=== PATIENT | female | born 1955 | race Caucasian/White ===

== ENCOUNTER 2020-04-01 17:31 | Observation (INO) ==
[2020-04-01] MEDS ORDERED: MoRPHine SULFATE 10 MG/ML CARP/VIAL IM STA (18:21)
--- NOTE | 2020-04-01 18:48 | XRay Report ---
XR knee LT 1 or 2V routine HISTORY: 65 years-old Female pain fall acute left knee pain status post fall COMPARISON: Knee radiographs 02/21/2020 TECHNIQUE: 2 views of the left knee FINDINGS: There is a moderate sized joint effusion. Moderate circumferential soft tissue swelling. Mild tricomp artmental osteoarthritis. There is an acute fracture involving the medial tibial plateau with cortica l depression of approximately 2-3 mm. No intra-articular loose body. The distal femur appears intact. IMPRESSION: 1. Acute slightly depressed medial tibial plateau fracture. 2. Moderate joint effusion. ACT 112: Negative or not required by law. The above report was generated using voice recognition software. It may contain grammatical, syntax o r spelling errors. Electronically signed by: Giuseppe Campbell M.D. 04/01/2020 6:47 PM
--- NOTE | 2020-04-01 19:52 | CT Scan Report ---
CT knee LT wo con HISTORY: 65 years-old Female evaluate tibial plateau fx acute left knee pain with tibial plateau fra cture COMPARISON: Left knee radiographs of same day TECHNIQUE: Multiple axial CT images of the left knee were obtained without the use of IV contrast. A dose lowering technique was used consistent with the principals of ALARA. FINDINGS: Large lipohemarthrosis. There is mild circumferential subcutaneous edema of the knee. No large hemato ma. There is mild tricompartmental osteoarthritis. There is an acute comminuted lateral tibial platea u with articular depression of approximately 5 mm within the mid tibial plateau and measuring up to a pproximately 8 mm within the posterior aspect of the lateral tibial plateau. Fracture fragments are d isplaced posteriorly up to 5 mm. Lateral tibial plateau fracture extends into inferiorly into the pro ximal tibial metaphysis (image 217 series 3 which is approximately 3.5 cm from the articular cortex. Additionally, there are fractures involving the medial and lateral tibial spines with a subtle transv ersely oriented fracture line extending from the mid to posterior medial tibial plateau. There is no associated cortical depression or displacement of the medial tibial plateau fracture. There is no def inite intra-articular loose body identified. The imaged fibula, distal femur and patella appear intac t. IMPRESSION: 1. Acute, comminuted and slightly displaced lateral tibial plateau fracture with associated articular depression as above. Fracture extends inferiorly to the level of the proximal tibial metaphysis. 2. Acute fractures of the medial and lateral tibial spines. 3. Acute nondisplaced medial tibial plateau fracture. 4. Large lipohemarthrosis. ACT 112: Negative or not required by law. The above report was generated using voice recognition software. It may contain grammatical, syntax o r spelling errors. Electronically signed by: Giuseppe Campbell M.D. 04/01/2020 7:50 PM
[2020-04-01] MEDS ORDERED: METHOCARBAMOL 750 MG TABLET PO STA (20:31)
[2020-04-01] MEDS: OXYCODONE IR HOME PACK PO ONE ×2 (20:53→23:45)
[2020-04-01] MEDS ORDERED: ONDANSETRON 4 MG OD TAB PO STA (21:03)
[2020-04-01] MEDS ORDERED: HYDROmorphone INJ 0.5 MG/0.5 ML SYR IV STA (23:29)
--- NOTE | 2020-04-01 23:32 | Emergency Department Note ---
Impression & Plan Closed fracture of tibial plateau, Accidental fall on or from stairs or steps ED Provider Note NAME: KAYLEE JOHNSON AGE: 65 SEX: F ARRIVES VIA: Walk-In INFORMANT: Patient, ED PROVIDER(S): Junior Quiroga MD CHIEF COMPLAINT: Left knee pain PLAN: Disposition: Admit MEDICAL DECISION MAKING: The patient is a pleasant 65-year-old woman with a past medical history of morbid obesity, type 2 diabetes, hypertension, hyperlipidemia, hypothyroidism, GERD, history of left knee pain and insufficiency fracture of her left knee mid medial tibial plateau managed conservatively with meat apprentice brace who presents emergency department after having a fall where she reports twisting her left knee and falling when attempting to go down steps. She denies any head strike or loss of consciousness. She reports she was unable to stand or bear weight thereafter. Denies any neck or back pain. Denies any recent fevers, chills, cough, congestion, nausea, vomiting, diarrhea, urinary symptoms. On arrival the patient is uncomfortable but no acute distress, afebrile with stable vital signs. She has mild swelling and tenderness diffusely to the left knee. She is unable to range it passively or actively. Her hips and pelvis are stable. Plain film performed and demonstrates tibial plateau fracture. This was additionally characterized on CT. I Did review the patient's case and findings with Dr. Garcia, [facility] orthopedics on-call. And we agree with plan for immobilization and nonweightbearing with plan for outpatient follow-up with the patient's orthopedist, Dr. Hernandez tomorrow. Unfortunately, despite our best attempt to optimize the patient's ability to go home including knee immobilizer with walker and plan to obtain wheelchair at [facility] on the way home the patient was barely able to pivot and make it to the bathroom in her room with a 3 person assist. Therefore given the patient's difficulty to manage ADLs in her current state decision was made to proceed with admission for PT OT evaluation and likely orthopedic consultation. Case was discussed with Dr. Charles, [facility] hospitalist, who will evaluate the patient for admission. Triage Nursing notes reviewed and agree them. Prior medical records reviewed MRI 01/08/2020: 1. No evidence of cruciate or collateral ligament disruption 2. Degenerative signal changes within the medial meniscus without evidence of discrete tear 3. Marrow edema within the medial tibial plateau, in a distribution suggesting an insufficiency fracture 4. Medial joint compartment chondrosis Vital Signs: reviewed and remarkable for no significant abnormalities Differential diagnosis: Fracture, subluxation, dislocation, contusion, ligamentous injury, neurovascular, compartment syndrome, rhabdomyolysis, as well as other pathologies. ER treatment provided: See below. Imaging studies: XR knee LT 1 or 2V routine HISTORY: 65 years-old Female pain fall acute left knee pain status post fall COMPARISON: Knee radiographs 02/21/2020 TECHNIQUE: 2 views of the left knee FINDINGS: There is a moderate sized joint effusion. Moderate circumferential soft tissue swelling. Mild tricompartmental osteoarthritis. There is an acute fracture involving the medial tibial plateau with cortical depression of approximately 2- 3 mm. No intra-articular loose body. The distal femur appears intact. IMPRESSION: 1. Acute slightly depressed medial tibial plateau fracture. 2. Moderate joint effusion. -- CT knee LT wo con HISTORY: 65 years-old Female evaluate tibial plateau fx acute left knee pain with tibial plateau fracture COMPARISON: Left knee radiographs of same day TECHNIQUE: Multiple axial CT images of the left knee were obtained without the use of IV contrast. A dose lowering technique was used consistent with the principals of ALARA. FINDINGS: Large lipohemarthrosis. There is mild circumferential subcutaneous edema of the knee. No large hematoma. There is mild tricompartmental osteoarthritis. There is an acute comminuted lateral tibial plateau with articular depression of approximately 5 mm within the mid tibial plateau and measuring up to approximately 8 mm within the posterior aspect of the lateral tibial plateau. Fracture fragments are displaced posteriorly up to 5 mm. Lateral tibial plateau fracture extends into inferiorly into the proximal tibial metaphysis (image 217 series 3 which is approximately 3.5 cm from the articular cortex. Additionally, there are fractures involving the medial and lateral tibial spines with a subtle transversely oriented fracture line extending from the mid to posterior medial tibial plateau. There is no associated cortical depression or displacement of the medial tibial plateau fracture. There is no definite intra- articular loose body identified. The imaged fibula, distal femur and patella appear intact. IMPRESSION: 1. Acute, comminuted and slightly displaced lateral tibial plateau fracture with associated articular depression as above. Fracture extends inferiorly to the level of the proximal tibial metaphysis. 2. Acute fractures of the medial and lateral tibial spines. 3. Acute nondisplaced medial tibial plateau fracture. 4. Large lipohemarthrosis. Consultation(s): [facility], Dr. Garcia [facility] hospitalist, Dr. Charles. HPI: The patient is a pleasant 65-year-old woman with a past medical history of morbid obesity, type 2 diabetes, hypertension, hyperlipidemia, hypothyroidism, GERD, history of left knee pain and insufficiency fracture of her left knee mid medial tibial plateau managed conservatively with meat apprentice brace who presents emergency department after having a fall where she reports twisting her left knee and falling when attempting to go down steps. She denies any head strike or loss of consciousness. She reports she was unable to stand or bear weight thereafter. Denies any neck or back pain. Denies any recent fevers, chills, cough, congestion, nausea, vomiting, diarrhea, urinary symptoms. ROS: See above HPI for pertinent positives & negatives. A total of 10 systems reviewed and were otherwise negative. PAST MEDICAL HISTORY:See Below PAST SURGICAL HISTORY:See Below FAMILY HISTORY:See Below SOCIAL HISTORY:See Below HOME MEDICATIONS:See Below ALLERGIES:See Below VITALS:See Below PHYSICAL EXAMINATION: GENERAL: Awake, alert, uncomfortable-appearing, in no distress, HENT: Normocephalic, atraumatic. Oropharynx unremarkable. EYES: Normal conjunctiva. Sclera non-icteric. NECK: Supple. No nuchal rigidity. FROM. No JVD. RESPIRATORY: Clear to auscultation. CARDIAC: Regular rate, normal rhythm. Extremities warm and well perfused. Pulses equal. ABDOMEN: Soft, non-distended. No tenderness to palpation. No rebound or guarding. No masses. RECTAL: Deferred. MUSCULOSKELETAL: Chest examination reveals no tenderness. The back is symmetrical on inspection without obvious abnormality. There is no CVA tenderness to palpation. LOWER EXTREMITIES: Calves are equal size bilaterally and non-tender. Mild swelling and tenderness diffusely to the left knee. She is unable to range it passively or actively 2/2 pain. Hips and pelvis are stable. NEURO: Normal sensorium. No sensory or motor deficits noted. SKIN: No rash or jaundice noted. Junior Quiroga MD Past Med/Surg History Medical History Diabetes mellitus, type 2 GERD (gastroesophageal reflux disease) Hearing deficit Hyperlipidemia Hypertension Hypothyroidism Seasonal allergies uses ventolin Surgical History History of cholecystectomy History of colonoscopy History of esophagogastroduodenoscopy (EGD) History of hysterectomy KWASI BSO History of laparoscopy X MANY History of lumpectomy Social History Smoking Status: Former smoker Second Hand Exposure: No; Do You Dip or Chew Tobacco: No; Tobacco Cessation Education Requested by Patient: No Hx Alcohol Use: Yes Alcohol type: beer Hx Substance Use: No Preferred Language: Mongolian Communication Ability: Effective Sr. Social Media & Mobile Manager Required: No Beliefs That Will Affect Care: None Current Living Situation: Spouse Current Living Situation Comment: and son Other Information That Helps Us Care for You: No Feels Safe at Home: Yes Allergies Allergies Allergy/AdvReac Type Severity Reaction Status Date / Time No Known Allergies Allergy Verified 04/01/20 21:53 Home Meds Home Medications Medication Instructions Recorded Confirmed Caltrate 600 plus D 2 tab PO BID 01/03/19 04/01/20 Cholestyramine Light 4 g PO BID 01/03/19 04/01/20 Touramos SoloStar U-300 Insulin 60 unit SUBCUT QPM 01/03/19 04/01/20 albuterol sulfate [Ventolin HFA] 2 puff INHALATION QID PRN 01/03/19 04/01/20 atorvastatin 40 mg PO QAM 01/03/19 04/01/20 esomeprazole magnesium [Nexium] 40 mg PO QAM 01/03/19 04/01/20 ferrous sulfate [iron] 325 mg PO QAM 01/03/19 04/01/20 furosemide 40 mg PO QAM 01/03/19 04/01/20 insulin lispro [Humalog KwikPen 6 - 8 unit SUBCUT TIDM 01/03/19 04/01/20 Insulin] levothyroxine 175 mcg PO QAM 01/03/19 04/01/20 lisinopril 40 mg PO QAM 01/03/19 04/01/20 metformin 1,000 mg PO BID 01/03/19 04/01/20 metoprolol tartrate 37.5 mg PO BID 01/03/19 04/01/20 triamcinolone acetonide [Nasacort] 1 spray INTRANASAL DAILY PRN 01/03/19 04/01/20 mirabegron [Myrbetriq] 50 mg PO QAM 04/01/20 04/01/20 Previous Rx's Medication Instructions Recorded methocarbamol [Robaxin-750] 750 mg PO TID PRN #20 tab 04/01/20 oxycodone 5 mg PO Q4H #15 tab 04/01/20 Results & Data (ED) Vital Signs Vital Signs - 24 hr 04/01/20 17:44 04/01/20 19:45 04/01/20 20:53 Temperature 36.8 C Temperature Source Oral Pulse Rate 99 H Pulse Rate [Finger] 83 60 Respiratory Rate 20 18 20 Respiratory Effort / Characteristics Non-Labored Non-Labored Spontaneous Non-Labored Spontaneous Respiratory Depth Normal Normal Normal Blood Pressure 209/93 H Blood Pressure [Right Arm] 228/74 H 177/98 H Blood Pressure Mean 131 Blood Pressure Mean [Right Arm] 125 124 Pulse Oximetry 99 97 97 Oxygen Delivery Method Room Air Room Air Room Air Sepsis Recent Fever Within 48 Hours No Sepsis New/Unexplained Change in Mental Status N/A Sepsis Action Taken by Nursing No Action Required Laboratory Data Lab Results 04/01/20 Range/Units 20:04 POC Glucose 142 H (70-99) mg/dl Administered Medications Sodium Chloride (Nss 1000ml) 1,000 mls @ 100 mls/hr IV .Q10H KEM Stop: 05/02/20 00:50 Last Admin: 04/02/20 02:04 Dose: 100 mls/hr Documented by: [id number] Oxycodone HCl (Oxycodone Hcl Ir 5 Mg Tab (Immediate Release)) 5 mg PO Q4H PRN PRN Reason: Pain Stop: 04/16/20 00:50 Last Admin: 04/02/20 02:05 Dose: 5 mg Documented by: [id number] Discontinued Medications Hydromorphone HCl (Hydromorphone Inj 0.5 Mg/0.5 Ml Syr) 0.5 mg IV NOW STA Stop: 04/01/20 23:30 Last Admin: 04/01/20 23:43 Dose: Not Given Documented by: [id number] Hydromorphone HCl (Hydromorphone Inj 0.5 Mg/0.5 Ml Syr) Confirm Administered Dose 0.5 mg .ROUTE .STK-MED ONE Stop: 04/01/20 23:35 Last Admin: 04/01/20 23:36 Dose: 0.5 mg Documented by: [id number] Methocarbamol (Methocarbamol 750 Mg Tablet) 1,500 mg PO NOW STA Stop: 04/01/20 20:32 Last Admin: 04/01/20 20:53 Dose: 1,500 mg Documented by: [id number] Morphine Sulfate (Morphine Sulfate 10 Mg/Ml Carp/Vial) 6 mg IM NOW STA Stop: 04/01/20 18:22 Last Admin: 04/01/20 18:27 Dose: 6 mg Documented by: [id number] Ondansetron HCl (Ondansetron 4 Mg Od Tab) 4 mg PO NOW STA Stop: 04/01/20 21:04 Last Admin: 04/01/20 21:09 Dose: 4 mg Documented by: [id number] Oxycodone HCl (Oxycodone Ir Home Pack) 1 homepack PO UD ONE Stop: 04/01/20 20:32 Last Admin: 04/01/20 23:45 Dose: Not Given Documented by: [id number] Discharge Plan Visit Data Chief Complaint: Fall Stated Complaint: FELL DOWN STEPS ED Provider: Junior Quiroga Discharge Problem: Closed fracture of tibial plateau, Accidental fall on or from stairs or steps Patient Disposition: Home - Self-Care Condition: Good Discharge Instructions Interventions: ED Discharge Assessment Last Done: 04/02/20 00:25 Discharge Problem: Closed fracture of tibial plateau Qualifiers: Encounter type: initial encounter Laterality: left Qualified Code(s): S82.142A - Displaced bicondylar fracture of left tibia, initial encounter for closed fracture Accidental fall on or from stairs or steps Qualifiers: Encounter type: initial encounter Qualified Code(s): W10.8XXA - Fall (on) (from) other stairs and steps, initial encounter
[2020-04-01] MEDS ORDERED: HYDROmorphone INJ 0.5 MG/0.5 ML SYR ONE (23:34)
[2020-04-02] MEDS ORDERED: ALBUTEROL HFA 8 GM INHALER INH PRN (00:51)
[2020-04-02] MEDS ORDERED: TRIAMCINOLONE ACET NASAL SPRAY 10.8ML BTL PRN (00:51)
[2020-04-02] MEDS ORDERED: HydrALAZINE HCL 20 MG/ML VIAL IV PRN (00:51)
[2020-04-02] MEDS ORDERED: POLYETHYLENE (MIRALAX) 17 GM PACK PO PRN (00:51)
--- NOTE | 2020-04-02 01:07 | History and Physical Report ---
DATE OF ADMISSION: 04/01/2020 CHIEF COMPLAINT: Status post fall and left knee pain. HISTORY OF PRESENT ILLNESS: A 65-year-old female with past medical history significant for diabetes, hyperlipidemia, hypertension, aortic valve disorder, obesity, history of GI bleed, history of tobacco abuse, generalized weakness, vertigo, ambulatory dysfunction, who presents with a fall. The patient says she twisted her knee in September and was found to have left medial tibial plateau fracture treated conservatively with a brace. Since February, she is not on any brace, follows with orthopedics. Today she went to get some apples from a local apple orchard and when she was coming down the steps, she suddenly felt the left knee popped and she fell down and felt a loss of sense of weight on the left leg and severe pain radiating up to the hip. She came to the ER and imaging study is showing acute comminuted and slightly displaced lateral tibial fracture with associated articular depression. Fracture extends interior to the level of the proximal tibial metaphysis, acute fracture of the medial and lateral tibial spines, acute nondisplaced medial tibial lateral fracture. ER discussed with ortho. Plan to keep her in the hospital. To be seen by ortho in the a.m. The patient was not able to ambulate on her own in the ER, she required a lot of help. Currently, any movement is causing severe pain. Otherwise resting comfortably and hemodynamically stable. Denies any headache, no blurred vision, no earache, no runny nose, no sore throat, no cough, no dysphagia. Appetite is okay. No chest pain, no shortness of breath. Was nauseous earlier, that has improved. No abdominal pain. Normal bowel and bladder movements. No rash. ALLERGIES: No known drug allergies. PAST MEDICAL HISTORY: As mentioned above. PAST SURGICAL HISTORY: Excision of a right benign breast lesion, EGDs, laparoscopic cholecystectomy, left heart catheterization, total hysterectomy with bilateral oophorectomy. MEDICATIONS: The patient is on cholestyramine 4 grams p.o. b.i.d., insulin Glargine 60 units q.p.m., Humalog sliding scale, levothyroxine 175 mcg p.o. daily, Metamucil daily, meclizine 25 mg p.o. t.i.d. p.r.n., Zofran 4 mg p.o. every 8 hours p.r.n., Nasacort spray nasally p.r.n., Lopressor 37.5 mg p.o. b.i.d., Lasix, Ventolin 2 puffs every 4 hours p.r.n., atorvastatin 40 mg p.o. daily, Caltrate 600 plus D 1 tablet b.i.d., lisinopril 40 mg p.o. daily, metformin 1000 mg p.o. b.i.d., Lasix 40 mg p.o. daily, Nexium 40 mg p.o. daily. FAMILY HISTORY: Significant for mother has diabetes and heart disorder, father has heart disorder, brother has heart disorder and diabetes. SOCIAL HISTORY: . Former smoker, quit in 2010. Alcohol occasionally. No drug use. REVIEW OF SYSTEMS: As per HPI. Rest of the review of systems negative. PHYSICAL EXAMINATION: GENERAL: The patient is alert and oriented, not in acute distress. VITAL SIGNS: Temperature 36.8, pulse 67, respiratory rate 20, blood pressure 206/99, oxygen 95% on room air. HEENT: Pupils equal, round, reactive to light. Oral mucosa moist. NECK: No neck masses seen, supple. CARDIOVASCULAR: S1, S2 heard, regular rate and rhythm, no murmur, no gallop. RESPIRATORY SYSTEM: Normal AP diameter. No accessory muscle use. No wheezing, no crackles. ABDOMEN: Soft, bowel sounds present, nontender. No distention. CENTRAL NERVOUS SYSTEM: Cranial nerves II-XII grossly intact, nonfocal. EXTREMITIES: Left knee is in brace. Painful movement of left lower extremity. Pedal edema present. LABORATORY DATA: Unavailable at this time. IMAGING DATA: Knee x-ray, acute slightly depressed medial tibial fracture, moderate joint effusion. Left knee CT scan, acute comminuted and slightly displaced lateral tibial fracture with associated articular depression. Fracture extends inferiorly to the level of proximal tibial metaphysis. Acute fracture of the medial and lateral tibial spines. Acute nondisplaced medial tibial plateau fracture, large lipohemarthrosis. ASSESSMENT AND PLAN: This is a 65-year-old female who presents with a fall and presents with a left knee tibial fracture. 1. Left knee tibial fracture. The patient had a left medial tibial plateau fracture in September, was treated conservatively and she was able to take off brace in February and able to ambulate, but today again she fell and, again had acute fractures as mentioned above. Difficulty with ambulation. Pain control. We will keep n.p.o. after midnight and consult ortho in the a.m. for further recommendations. When stable, PT and OT. 2. History of diabetes. Continue her home Ernesto Jerome and placed on insulin sliding scale. Hold metformin. However, if the patient continues to be n.p.o. tomorrow, may need to cut back on the long-acting insulin. We will follow the HbA1c, we will follow the blood sugars. 3. Gastroesophageal reflux disease. Continue Nexium. 4. Hyperlipidemia. Continue statin. 5. Hypertension. Continue lisinopril, Lopressor. We will place on IV hydralazine p.r.n. 6. Obesity, needs counseling. 7. Lower extremity edema on Lasix, which she will continue. Getting fluids. We will monitor for any volume overload. 8. Deep venous thrombosis prophylaxis. She is on sequential compression devices. If there is no plan for any surgery, may need to be placed on Lovenox. DISPOSITION: Admit to medical floor. PT and OT prior to discharge. Social service to help with discharge planning. Code status level 1 full code. MTDD
[2020-04-02] MEDS ORDERED: GLUCAGON FOR INJ 1 MG VIAL SQ PRN (01:15)
[2020-04-02] MEDS ORDERED: GLUCOSE 40% GEL 15 GM TUBE PO PRN (01:15)
[2020-04-02] MEDS ORDERED: GLUCOSE 10 TABS/TUBE PO PRN (01:15)
[2020-04-02] MEDS ORDERED: DEXTROSE 50% 50 ML SYRINGE IV PRN (01:15)
[2020-04-02] MEDS ORDERED: CARBOHYDRATES FOR HYPOGLYCEMIA PO PRN (01:15)
[2020-04-02] MEDS: SODIUM CHLORIDE 0.9% 1000ML 1,000 ML IV SCH ×3 (02:04→21:24)
[2020-04-02] MEDS: OXYCODONE HCL IR 5 MG TAB (IMMEDIATE RELEASE) PO PRN ×4 (02:05→20:47)
[2020-04-02] MEDS ORDERED: Nursing to Pharmacy Communication SCH (05:45)
[2020-04-02 06:09] LABS: Basophils # (auto) 0.02 K/uL (0-0.2); Basophils % (auto) 0.3 %; Eosinophils # (auto) 0.02 K/uL (0-0.5); Eosinophils % (auto) 0.3 %; Hematocrit (blood only) 39.5 % (37-47); Hemoglobin 13.2 g/dL (12.0-16.0); Immature Granulocytes # (auto) 0.01 K/uL (0.00-0.02); Immature Granulocytes % (auto) 0.1 %; Lymphocytes # (auto) 1.32 K/uL (1.2-3.4); Lymphocytes % (auto) 16.5 %; Mean Corpuscular Hemoglobin 29.4 pg (25-34); Mean Corpuscular Hgb Conc 33.4 g/dL (32-36); Mean Platelet Volume 9.1 fL (7.4-10.4); Monocytes % (auto) 8.8 %; Neutrophils # (auto) 5.93 K/uL (1.4-6.5); Platelet Count 290 K/uL (130-400); RDW Coefficient of Variation 13.3 % (11.5-14.5); Red Blood Count 4.49 M/uL (4.2-5.4)
[2020-04-02] MEDS: INSULIN ASPART 100 UNITS/ML 3 ML PEN SC SCH ×4 (06:16→20:55)
[2020-04-02] MEDS: LEVOTHYROXINE SODIUM 175 MCG TABLET PO SCH (06:22)
[2020-04-02 06:38] LABS: BUN Creatinine Ratio 13.1 (10-20); Calcium 9.1 mg/dl (8.5-10.1); Creatinine Clr Calc Pharmacy 95.2 ml/min; Est GFR (African American) 96.1; Est GFR (Non-African American) 82.9; Magnesium 1.9 mg/dl (1.8-2.4); Potassium 3.6 mmol/L (3.5-5.1)
[2020-04-02] MEDS: HYDROmorphone INJ 0.5 MG/0.5 ML SYR IV PRN ×2 (07:18→10:26)
[2020-04-02] MEDS ORDERED: INSULIN ASPART 100 UNITS/ML 3 ML PEN SC SCH (07:30)
[2020-04-02 07:48] LABS: Estimated Average Glucose 197 mg/dl; Hemoglobin A1C 8.5 % (4.5-5.6)
[2020-04-02] MEDS: lisinopriL 40 MG TAB PO SCH (08:04)
[2020-04-02] MEDS: FERROUS SULFATE 325 MG TAB PO SCH (08:04)
[2020-04-02] MEDS: CALCIUM 600MG + VIT D 400 IU TAB PO SCH ×2 (08:04→20:40)
[2020-04-02] MEDS: FUROSEMIDE 40 MG TAB PO SCH (08:05)
[2020-04-02] MEDS: MIRABEGRON ER 25 MG TAB PO SCH (08:05)
[2020-04-02] MEDS: METOPROLOL TARTRATE 25 MG TAB PO SCH ×2 (08:05→20:41)
[2020-04-02] MEDS: PANTOprazole 40 MG TAB PO SCH (08:06)
[2020-04-02] MEDS: ATORVASTATIN 40 MG TAB PO SCH (08:06)
[2020-04-02] MEDS: ACETAMINOPHEN 325 MG TAB PO PRN (09:18)
[2020-04-02] MEDS: ONDANSETRON INJ 2 MG/ML 2 ML VIAL IV PRN ×2 (10:33→16:35)
[2020-04-02] MEDS: CHOLESTYRAMINE LIGHT 4 GM PKT PO SCH ×2 (10:34→21:00)
[2020-04-02] MEDS ORDERED: HYDROmorphone INJ 1 MG/ML SYRINGE IV PRN (12:23)
--- NOTE | 2020-04-02 15:34 | Orthopedic Consultation ---
Date of Consultation April 02, 2020 Assessment & Plan (1) Closed fracture of tibial plateau: 65-year-old female with unacceptably displaced split depression lateral tibial plateau fracture. The x-ray is reviewed by myself and Dr. Garcia. Both of us agree this should be treated without surgery if possible. The treatment plan will be nonweightbearing to the left lower extremity for at least 6 weeks. She should be in a straight leg extension brace. The knee immobilizer that she had on was too small. A range of motion brace was applied today. She should be evaluated by PT/OT for her discharge needs. We discussed the need to be nonweightbearing. I also related that any surgical fixation would not allow much earlier weightbearing. We are unlikely to improve the alignment of the fracture by surgery at this point. We should follow this on x-ray. She should follow-up in our orthopedic clinic for interval x-rays at 2 weeks. Until then the knee should be held in extension and be nonweightbearing. She will need DVT prophylaxis for her immobility and injury. Unless there is another contraindication, Lovenox 40 mg subcutaneous every day for 6 weeks would be acceptable. We will continue to follow while she is inpatient. History of Present Illness Attending Physician: Cecilia Conteh MD History of Present Illness 65-year-old female with multiple manage medical comorbidities reports that she sustained a fall on steps when her knee gave way yesterday and [place]. She had immediate pain and inability to bear weight. Pain radiated towards the hip. She was evaluated by the emergency room and found to have a minimally displaced proximal tibia plateau fracture. She was admitted to the hospital for further care. She reports pain has not improved much since admission. She was placed in a knee immobilizer. She has been n.p.o. today. She reports she was doing well since being advanced without the brace and obvious. Allergies Allergy/AdvReac Type Severity Reaction Status Date / Time No Known Allergies Allergy Verified 04/01/20 21:53 Home Medications Home Medications Medication Instructions Recorded Confirmed Type Caltrate 600 plus D 2 tab PO BID 01/03/19 04/01/20 History Cholestyramine Light 4 g PO BID 01/03/19 04/01/20 History Toujeo SoloStar U-300 Insulin 60 unit SUBCUT QPM 01/03/19 04/01/20 History albuterol sulfate [Ventolin HFA] 2 puff INHALATION QID PRN 01/03/19 04/01/20 History atorvastatin 40 mg PO QAM 01/03/19 04/01/20 History esomeprazole magnesium [Nexium] 40 mg PO QAM 01/03/19 04/01/20 History ferrous sulfate [iron] 325 mg PO QAM 01/03/19 04/01/20 History furosemide 40 mg PO QAM 01/03/19 04/01/20 History insulin lispro [Humalog KwikPen 6 - 8 unit SUBCUT TIDM 01/03/19 04/01/20 History Insulin] levothyroxine 175 mcg PO QAM 01/03/19 04/01/20 History lisinopril 40 mg PO QAM 01/03/19 04/01/20 History metformin 1,000 mg PO BID 01/03/19 04/01/20 History metoprolol tartrate 37.5 mg PO BID 01/03/19 04/01/20 History triamcinolone acetonide [Nasacort] 1 spray INTRANASAL DAILY PRN 01/03/19 04/01/20 History methocarbamol [Robaxin-750] 750 mg PO TID PRN #20 tab 04/01/20 Rx mirabegron [Myrbetriq] 50 mg PO QAM 04/01/20 04/01/20 History oxycodone 5 mg PO Q4H #15 tab 04/01/20 Rx Patient History Medical History Diabetes mellitus, type 2 GERD (gastroesophageal reflux disease) Hearing deficit Hyperlipidemia Hypertension Hypothyroidism Seasonal allergies uses ventolin Surgical History History of cholecystectomy History of colonoscopy History of esophagogastroduodenoscopy (EGD) History of hysterectomy KWASI BSO History of laparoscopy X MANY History of lumpectomy Social History Smoking Status: Former smoker Second Hand Exposure: No; Do You Dip or Chew Tobacco: No; Tobacco Cessation Education Requested by Patient: No Hx Alcohol Use: Yes Alcohol type: beer Hx Substance Use: No Preferred Language: Ghanaian Communication Ability: Effective Block Inspector Required: No Beliefs That Will Affect Care: None Current Living Situation: Spouse Current Living Situation Comment: and son Other Information That Helps Us Care for You: No Feels Safe at Home: Yes Review of Systems Review of Systems: All systems reviewed & are unremarkable except as noted in HPI & below Physical Exam Physical Exam: Left lower extremity: The knee immobilizer was opened to reveal significant edema about the knee. She is a large effusion. There is some ecchymosis settling out. She had positive dorsiflexion and plantarflexion at the ankle. Sensation was grossly intact light touch. She had strong 2+ DP/PT pulses. Constitutional: well developed and well nourished; no acute distress and not intoxicated appearing ENMT: external ear and nose normal, oropharynx normal Respiratory: normal respiratory effort; no respiratory distress Cardiovascular: Extremities: normal capillary refill; no edema Skin: no rashes, warm and dry Psychiatric: A+Ox3, euthymic affect Results & Data ([facility]) Vital Signs (Past 12 Hours) Vital Signs Temp Pulse Resp BP Pulse Ox 04/02/20 14:51 36.4 C L 59 L 18 111/68 91 04/02/20 07:09 36.9 C 68 16 165/82 H 96 Radiographs of the knee demonstrate a fracture involving the lateral tibial plateau with noticeable articular depression of less than 5 mm. The fracture pattern is better described on the available CT. There is fracture extension into the metaphysis. There is involvement of the tibial spines and some articular depression lateral tibial plateau. Overall, the alignment is acceptable. She has relative osteoporosis in all the imaging. PG Care Time/CCT Total # of Minutes Spent Total Time Spent with Patient: Total time spent is greater than 50% in coordination of care (as documented) at patient's floor/unit and/or counseling patient: Coding Level of Care Code 08232 Inpt Consult Level 3 Diagnoses Closed fracture of tibial plateau S82.142A Encounter type: initial encounter Laterality: left (1) Closed fracture of tibial plateau Encounter type: initial encounter Laterality: left Qualified Code(s): S82.142A - Displaced bicondylar fracture of left tibia, initial encounter for closed fracture
--- NOTE | 2020-04-02 15:44 | Communication Note ---
Date of Service: April 02, 2020 The patient was seen and examined in medical floor She was admitted with closed fracture of the left Tibial plateau following a mechanical fall Remains hemodynamically stable and her labs and imaging studies reviewed Awaiting Ortho evaluation Will continue care. Dr Jj Conteh
[2020-04-02] MEDS ORDERED: PROMETHAZINE HCL 12.5 MG in SODIUM CHLORIDE 0.9% 50 ML IV PRN (15:54)
[2020-04-02] MEDS ORDERED: INSULIN GLARGINE 100 UNIT/ML VIAL SC SCH (21:00)
[2020-04-03] MEDS: OXYCODONE HCL IR 5 MG TAB (IMMEDIATE RELEASE) PO PRN ×4 (01:30→23:49)
[2020-04-03 05:48] LABS: Basophils # (auto) 0.01 K/uL (0-0.2); Basophils % (auto) 0.1 %; Eosinophils # (auto) 0.14 K/uL (0-0.5); Hematocrit (blood only) 39.3 % (37-47); Hemoglobin 13.1 g/dL (12.0-16.0); Immature Granulocytes # (auto) 0.01 K/uL (0.00-0.02); Immature Granulocytes % (auto) 0.1 %; Lymphocytes # (auto) 1.32 K/uL (1.2-3.4); Mean Corpuscular Hemoglobin 29.3 pg (25-34); Mean Corpuscular Hgb Conc 33.3 g/dL (32-36); Mean Corpuscular Volume 87.9 fL (80-100); Mean Platelet Volume 9.2 fL (7.4-10.4); Monocytes # (auto) 0.61 K/uL (0.11-0.59); Monocytes % (auto) 8.8 %; Neutrophils # (auto) 4.85 K/uL (1.4-6.5); Platelet Count 272 K/uL (130-400); RDW Coefficient of Variation 13.4 % (11.5-14.5); Red Blood Count 4.47 M/uL (4.2-5.4); White Blood Count 6.94 K/uL (4.8-10.8)
[2020-04-03] MEDS: LEVOTHYROXINE SODIUM 175 MCG TABLET PO SCH (05:50)
[2020-04-03 06:10] LABS: Calcium 8.8 mg/dl (8.5-10.1); Creatinine Clr Calc Pharmacy 101.9 ml/min; Est GFR (African American) 104.3; Potassium 3.2 mmol/L (3.5-5.1)
[2020-04-03] MEDS: SODIUM CHLORIDE 0.9% 1000ML 1,000 ML IV SCH ×2 (06:13→18:39)
[2020-04-03] MEDS: PANTOprazole 40 MG TAB PO SCH (08:22)
[2020-04-03] MEDS: FERROUS SULFATE 325 MG TAB PO SCH (08:23)
[2020-04-03] MEDS: MIRABEGRON ER 25 MG TAB PO SCH (08:23)
[2020-04-03] MEDS: FUROSEMIDE 40 MG TAB PO SCH (08:24)
[2020-04-03] MEDS: CALCIUM 600MG + VIT D 400 IU TAB PO SCH ×2 (08:24→20:59)
[2020-04-03] MEDS: METOPROLOL TARTRATE 25 MG TAB PO SCH ×2 (08:27→20:56)
[2020-04-03] MEDS: lisinopriL 40 MG TAB PO SCH (08:27)
[2020-04-03] MEDS: INSULIN ASPART 100 UNITS/ML 3 ML PEN SC SCH ×4 (08:33→21:02)
[2020-04-03] MEDS: ATORVASTATIN 40 MG TAB PO SCH (08:50)
[2020-04-03] MEDS ORDERED: POTASSIUM CHLORIDE 20 MEQ TABCR PO STA (09:04)
[2020-04-03] MEDS: CHOLESTYRAMINE LIGHT 4 GM PKT PO SCH ×2 (11:12→22:29)
--- NOTE | 2020-04-03 12:43 | Hospitalist Progress Note ---
Date of Service April 03, 2020 Assessment & Plan (1) Closed fracture of lateral portion of left tibial plateau: Status post mechanical fall while stepping down the stairs History of previous fall in September of this year with fracture of left medial tibial plateau CT scan of the left knee joint shows: 1. Acute, comminuted and slightly displaced lateral tibial plateau fracture with associated articular depression as above. Fracture extends inferiorly to the level of the proximal tibial metaphysis. 2. Acute fractures of the medial and lateral tibial spines. 3. Acute nondisplaced medial tibial plateau fracture. 4. Large lipohemarthrosis. Has acute fractures involving the tibial plateau and spine Pain control and PT and OT evaluation Appreciate Ortho input and recommendation Recurrent falls History of fall in September with left medial tibial plateau fracture treated conservatively (2) Closed fracture of tibial spine: As above (3) Left medial tibial plateau fracture: As above (4) Diabetes mellitus, type 2: We will put her on SSI while in the hospital Monitor blood sugar (5) Hypertension: Medications Continue on the upper side likely secondary to pain (6) Hyperlipidemia: (7) Hypothyroidism: Continue current supplement Admission and Anticipated Discharge Date Admission Date: April 01, 2020 Subjective 04/03/2020 Patient was seen and examined in medical floor She has been complaining of pain in the left leg around the left knee joint mainly Denies any other symptoms Review of Systems Review of Systems: All systems reviewed and are unremarkable except as noted below Musculoskeletal: + joint pain (Left leg pain mainly around the left knee joint) Physical Exam Physical Exam: Lying in bed Constitutional: well developed, well nourished and + obese; no acute distress and not ill appearing Eyes: PERRL, conjunctivae normal, anicteric sclerae ENMT: external ear and nose normal, oropharynx normal Neck: trachea midline, no thyromegaly Respiratory: normal respiratory effort; no respiratory distress Auscultation: lungs clear to auscultation bilaterally Cardiovascular: Rate/Rhythm: regular rate and regular rhythm Heart Sounds: no murmur Gastrointestinal (Abdomen): Inspection/Auscultation: abdomen normal to inspection and normal bowel sounds; abdomen not distended Percussion/Palpation: abdomen soft; abdomen nontender Musculoskeletal: Left knee is in a brace. No problem moving with the ankle and the toes Neurologic: moves all extremities; no focal motor deficits Alert, awake and oriented x3 Results & Data Results & Data ([facility]) Vital Signs (Past 12 Hours) Vital Signs Temp Pulse Resp BP Pulse Ox 04/03/20 08:26 79 159/80 H 04/03/20 07:22 37.2 C 75 16 160/79 H 93 Laboratory Results Short CBC 04/03/20 Range/Units 05:04 WBC 6.94 (4.8-10.8) K/uL Hgb 13.1 (12.0-16.0) g/dL Hct 39.3 (37-47) % Plt Count 272 (130-400) K/uL BMP 04/03/20 05:04 Sodium 142 Potassium 3.2 L Chloride 109 H Carbon Dioxide 28 BUN 7 Creatinine 0.71 Glucose 104 H Calcium 8.8 Medications Administered Current Inpatient Medications Acetaminophen (Acetaminophen 325 Mg Tab) 650 mg PO Q4H PRN PRN Reason: pain/fever Stop: 05/02/20 00:50 Last Admin: 04/02/20 09:18 Dose: 650 mg Documented by: Albuterol (Albuterol Hfa 8 Gm Inhaler) 2 puffs INH QID PRN PRN Reason: Shortness Of Breath Stop: 05/02/20 00:50 Atorvastatin Calcium (Atorvastatin 40 Mg Tab) 40 mg PO QAM [facility] Stop: 05/02/20 08:59 Last Admin: 04/03/20 08:50 Dose: 40 mg Documented by: Cholestyramine Resin (Cholestyramine Light 4 Gm Pkt) 4 gm PO BID@1000,2200 [facility] Stop: 05/02/20 09:59 Last Admin: 04/03/20 11:12 Dose: 4 gm Documented by: Dextrose (Dextrose 50% 50 Ml Syringe) 25 - 50 ml IV UD PRN; Protocol PRN Reason: Hypoglycemia Protocol Stop: 05/02/20 01:14 Ferrous Sulfate (Ferrous Sulfate 325 Mg Tab) 325 mg PO QAM [facility] Stop: 05/02/20 08:59 Last Admin: 04/03/20 08:23 Dose: 325 mg Documented by: Furosemide (Furosemide 40 Mg Tab) 40 mg PO QAM [facility] Stop: 05/02/20 08:59 Last Admin: 04/03/20 08:24 Dose: 40 mg Documented by: Glucagon (Glucagon For Inj 1 Mg Vial) 1 mg SQ UD PRN; Protocol PRN Reason: Hypoglycemia Protocol Stop: 05/02/20 01:14 Glucose (Glucose 40% Gel 15 Gm Tube) 15 - 30 gm PO UD PRN; Protocol PRN Reason: Hypoglycemia Protocol Stop: 05/02/20 01:14 Glucose (Glucose 10 Tabs/Tube) 4 - 8 tabs PO UD PRN; Protocol PRN Reason: Hypoglycemia Protocol Stop: 05/02/20 01:14 Hydralazine HCl (Hydralazine Hcl 20 Mg/Ml Vial) 7.5 mg IV Q6H PRN PRN Reason: Hypertension Stop: 05/02/20 00:50 Hydromorphone HCl (Hydromorphone Inj 1 Mg/Ml Syringe) 1 mg IV Q4H PRN PRN Reason: Pain Stop: 04/16/20 00:50 Last Admin: 04/02/20 13:26 Dose: 1 mg Documented by: Sodium Chloride (Nss 1000ml) 1,000 mls @ 100 mls/hr IV .Q10H [facility] Stop: 05/02/20 00:50 Last Admin: 04/03/20 06:13 Dose: 100 mls/hr Documented by: Promethazine HCl 12.5 mg/ (Sodium Chloride) 50.5 mls @ 202 mls/hr IV Q6H PRN PRN Reason: Nausea And Vomiting Stop: 05/02/20 15:53 Insulin Aspart (Insulin Aspart 100 Units/Ml 3 Ml Pen) 0 units SC ACHS [facility] Stop: 05/02/20 20:59 Last Admin: 04/03/20 08:33 Dose: 5 units Documented by: Insulin Glargine (Insulin Glargine 100 Unit/Ml Vial) 60 units SC QPM [facility] Stop: 05/03/20 20:59 Levothyroxine Sodium (Levothyroxine Sodium 175 Mcg Tablet) 175 mcg PO DAILYBB [facility] Stop: 05/02/20 06:29 Last Admin: 04/03/20 05:50 Dose: 175 mcg Documented by: Lisinopril (Lisinopril 40 Mg Tab) 40 mg PO QAM [facility] Stop: 05/02/20 08:59 Last Admin: 04/03/20 08:27 Dose: 40 mg Documented by: Metoprolol Tartrate (Metoprolol Tartrate 25 Mg Tab) 37.5 mg PO BID [facility] Stop: 05/02/20 08:59 Last Admin: 04/03/20 08:27 Dose: 37.5 mg Documented by: Mirabegron (Mirabegron Er 25 Mg Tab) 50 mg PO QAM [facility] Stop: 05/02/20 08:59 Last Admin: 04/03/20 08:23 Dose: 50 mg Documented by: Miscellaneous (Carbohydrates For Hypoglycemia ) 15 - 30 gm PO UD PRN PRN Reason: Hypoglycemia Treatment Stop: 05/02/20 01:14 Multivitamins/Minerals (Calcium 600mg + Vit D 400 Iu Tab) 2 tab PO BID [facility] Stop: 05/02/20 08:59 Last Admin: 04/03/20 08:24 Dose: 2 tab Documented by: Ondansetron HCl (Ondansetron Inj 2 Mg/Ml 2 Ml Vial) 4 mg IV Q6H PRN PRN Reason: Nausea Stop: 05/02/20 00:50 Last Admin: 04/02/20 16:35 Dose: 4 mg Documented by: Oxycodone HCl (Oxycodone Hcl Ir 5 Mg Tab (Immediate Release)) 5 mg PO Q4H PRN PRN Reason: Pain Stop: 04/16/20 00:50 Last Admin: 04/03/20 06:12 Dose: 5 mg Documented by: Pantoprazole Sodium (Pantoprazole 40 Mg Tab) 40 mg PO QAM [facility] Stop: 05/02/20 08:59 Last Admin: 04/03/20 08:22 Dose: 40 mg Documented by: Polyethylene Glycol (Polyethylene (Miralax) 17 Gm Pack) 17 gm PO DAILY PRN PRN Reason: Constipation Stop: 05/02/20 00:50 Triamcinolone Acetonide (Triamcinolone Acet Nasal [place] 10.8ml Btl) 1 sprays NA DAILY PRN PRN Reason: Sinus Symptoms Stop: 05/02/20 00:50
--- NOTE | 2020-04-03 14:54 | Orthopedic Progress Note ---
Date of Service April 03, 2020 Assessment & Plan (1) Closed fracture of tibial plateau: Patient should remain non weight bearing with her knee locked in extension, using her knee extension brace. She understands she can open her brace, when at rest, as long as she keep her knee locked in extension. Continue DVT prophylaxis with SCDs and Lovenox 40 once daily. Awaiting PT/OT arrival. Discharge pending on PT/OT evaluation. She will follow up in our office in two weeks for continued care and new x-rays at that time. Admission and Anticipated Discharge Date Admission Date: April 01, 2020 Evangelist Hare is a 65 year old female who has suffered a left tibial plateau fracture. She reports reinjuring her knee after falling when going down steps, two days ago (04/01/20). She experienced immediate pain at the time with radiation into her hip and back. She presented to the ER for evaluation. She has been placed in a straight leg extension brace and given non weight bearing orders. States she has been compliant so far. She has not yet been seen by PT/OT for further evaluation. She has gotten out of bed to go to the bathroom and reports using her walker while toe touching on her affected left leg. She has kept her brace locked in full extension. States her pain has been mostly well controlled since being admitted but reports occasional "spasms" posteriorly. She denies any numbness or tingling. She is frustrated but remains optimistic with her new brace. Review of Systems Constitutional: no fever, no chills and no problem reported Eyes: as per Subjective / HPI; no problem reported Ear, Nose, Mouth, Throat: as per Subjective / HPI; no problem reported Respiratory: as per Subjective / HPI; no problem reported Cardiovascular: no edema and no problem reported Gastrointestinal: no nausea, no vomiting and no problem reported Musculoskeletal: as per Subjective / HPI Integumentary: as per Subjective / HPI; no problem reported Neurologic: no tingling, no paresthesia and no problem reported Psychiatric: no problem reported Endocrine: as per Subjective / HPI Hematologic / Lymphatic: as per Subjective / HPI Allergy / Immunological: no problem reported Physical Exam Musculoskeletal: Patient was laying comfortably in her bed with her knee locked in full extension, using her knee extension brace and an overlying ice pack. She was not in acute distress. Patient is A+Ox3. Left lower extremity: Brace remained in place for exam. Brace appeared well fit, she did loosen a strap directly superior to her knee, for added comfort. Positive EHL, tib ant, and dorsiflexion/plantarflexion of left foot/ankle. Capillary refill <2 seconds. 2+ distal pulses Neurovascularly intact Results & Data ([facility]) Vital Signs (Past 12 Hours) Vital Signs Temp Pulse Resp BP Pulse Ox 04/03/20 08:26 79 159/80 H 04/03/20 07:22 37.2 C 75 16 160/79 H 93 PG Care Time/CCT Total # of Minutes Spent Total Time Spent with Patient: Total time spent is greater than 50% in coordination of care (as documented) at patient's floor/unit and/or counseling patient: Coding Level of Care Code 51082 Subseq Hosp Care Lvl 1 Diagnoses Closed fracture of tibial plateau S82.142A Encounter type: initial encounter Laterality: left (1) Closed fracture of tibial plateau Encounter type: initial encounter Laterality: left Qualified Code(s): S82.142A - Displaced bicondylar fracture of left tibia, initial encounter for closed fracture
--- NOTE | 2020-04-03 18:27 | Consultation Report ---
DATE OF CONSULTATION: 04/03/2020 HISTORY OF PRESENT ILLNESS: This is a 65-year-old female seen at the request of the medical service and Dr. Conteh for left knee pain and swelling. This 65-year-old female had a fall sometime in September and was seen and cared for by Dr. Hernandez regarding a nondisplaced left tibial plateau fracture. She was treated conservatively and showed improvement radiographically and was then directed to get out of her knee brace, and she was at one of the local [place]ch[place] and when she was coming down the steps, she suddenly felt her left knee popped and had pain and weakness and she fell down and felt a loss of sense of stability. She had severe pain radiating from the knee proximally to the left hip. The patient was seen in the Emergency Department, had radiographs performed noting an acute comminuted and slightly displaced lateral tibial plateau fracture with noted articular depression laterally. She was admitted to the hospital and was seen by Dr. Hernandez with consultation by Dr. Garcia. At some point, the patient requested another opinion and that is when Dr. Conteh requested my input on this case. The patient had been in the hospital with a knee immobilizer, resting in her hospital bed. No other associated injuries. No head or neck trauma. No loss of consciousness. Left knee pain with some radiation proximally are the primary concerns. PAST MEDICAL HISTORY: Diabetes mellitus type 2, hyperlipidemia, hypertension, aortic valve disorder, obesity, history of GI bleed, history of tobacco abuse, generalized weakness, vertigo, ambulatory dysfunction. PAST SURGICAL HISTORY: Excision of right benign breast lesion, EGD, laparoscopic cholecystectomy, left heart catheterization, total hysterectomy with bilateral oophorectomy. ALLERGIES: No known drug allergies. MEDICATIONS: Please note the medications in the medical record. SOCIAL HISTORY: She is . Former smoker, quit in 2010. Drinks beer occasionally. No drug use. PHYSICAL EXAMINATION: This is a 65-year-old female lying supine in her hospital room bed. She is obese. She is alert and oriented x3. Speech clear and fluent. Affect is appropriate. Answers questions with a normal affect. Focused exam of the left knee demonstrates a knee immobilizer, which was then removed. Skin was examined and noted to be warm, dry and intact. Local edema around the left knee, both proximal and distal. Moderate effusion is noted of the left knee with palpation. Slight ecchymosis adjacent to the knee. Limited active and passive range of motion of the left knee due to pain and guarding. Dorsalis pedis and posterior tibial pulses are 2/4 bilaterally. Sensation is intact and symmetric. No focal or lateralizing neurologic defects are noted. Normal muscle tone. Tenderness to palpation diffusely around the left knee, particularly along the tibial plateau both medial and lateral. Radiographs and CT scan reviewed of the left knee demonstrating a fracture of the lateral tibial plateau with a slight displacement and [id number] articular surface depression. There is a slight overestimation of the degree of joint depression as there was no accounting for the displacement of the tibial spine and determining the level of the tibial plateau. This appears to be approximately somewhere between 3 and 5 mm of actual joint depression laterally. There is some local comminution, which does not comprise a significant portion of the joint surface in the lateral compartment of the knee. Soft tissue swelling and local hematoma. IMPRESSION: 1. Left lateral tibial plateau fracture with [id number] depression with minimal displacement. 2. Morbid obesity, multiple medical comorbidities including diabetes mellitus type 2. RECOMMENDATION: The nature and character of the tibial plateau fracture does not lend itself to any improvement with any type of open reduction or internal fixation. The patient will need to be nonweightbearing for a period of 6 weeks with the hinged knee immobilizer, which she has now is sufficient. Ice to the limb. Physical therapy and occupational therapy consultation for transfers and other modifications of daily activities. Follow up with Dr. Bernal in clinic within 2 weeks for repeat radiographs of the left knee for continued surveillance. Thank you for the opportunity to consult in the care of this patient.
[2020-04-03] MEDS: INSULIN GLARGINE 100 UNIT/ML VIAL SC SCH (21:01)
[2020-04-03] MEDS: ACETAMINOPHEN 325 MG TAB PO PRN (23:48)
[2020-04-04] MEDS: LEVOTHYROXINE SODIUM 175 MCG TABLET PO SCH (05:58)
[2020-04-04] MEDS: lisinopriL 40 MG TAB PO SCH (08:32)
[2020-04-04] MEDS: METOPROLOL TARTRATE 25 MG TAB PO SCH ×2 (08:32→20:45)
[2020-04-04] MEDS: ATORVASTATIN 40 MG TAB PO SCH (08:34)
[2020-04-04] MEDS: MIRABEGRON ER 25 MG TAB PO SCH (08:34)
[2020-04-04] MEDS: FERROUS SULFATE 325 MG TAB PO SCH (08:35)
[2020-04-04] MEDS: PANTOprazole 40 MG TAB PO SCH (08:35)
[2020-04-04] MEDS: CALCIUM 600MG + VIT D 400 IU TAB PO SCH ×2 (08:35→20:48)
[2020-04-04] MEDS: FUROSEMIDE 40 MG TAB PO SCH (08:36)
[2020-04-04] MEDS: INSULIN ASPART 100 UNITS/ML 3 ML PEN SC SCH ×4 (08:39→20:50)
[2020-04-04] MEDS: OXYCODONE HCL IR 5 MG TAB (IMMEDIATE RELEASE) PO PRN ×2 (09:39→19:18)
[2020-04-04] MEDS: ACETAMINOPHEN 325 MG TAB PO PRN ×2 (09:39→19:20)
[2020-04-04] MEDS: CHOLESTYRAMINE LIGHT 4 GM PKT PO SCH ×2 (11:02→22:18)
--- NOTE | 2020-04-04 11:18 | Hospitalist Progress Note ---
Date of Service April 04, 2020 Assessment & Plan (1) Closed fracture of lateral portion of left tibial plateau: Status post mechanical fall while stepping down the stairs History of previous fall in September of this year with fracture of left medial tibial plateau CT scan of the left knee joint shows: 1. Acute, comminuted and slightly displaced lateral tibial plateau fracture with associated articular depression as above. Fracture extends inferiorly to the level of the proximal tibial metaphysis. 2. Acute fractures of the medial and lateral tibial spines. 3. Acute nondisplaced medial tibial plateau fracture. 4. Large lipohemarthrosis. Has acute fractures involving the tibial plateau and spine Pain control and PT and OT evaluation Appreciate Ortho input and recommendation as follows: Patient should remain non weight bearing with her knee locked in extension, using her knee extension brace. She understands she can open her brace, when at rest, as long as she keep her knee locked in extension. Continue DVT prophylaxis with SCDs and Lovenox 40 once daily. Awaiting PT/OT arrival. Discharge pending on PT/OT evaluation. She will follow up in our office in two weeks for continued care and new x-rays at that time. Clinically not better today Will await PT and OT recommendation prior to discharge Recurrent falls History of fall in September with left medial tibial plateau fracture treated conservatively (2) Closed fracture of tibial spine: As above (3) Left medial tibial plateau fracture: As above (4) Diabetes mellitus, type 2: We will put her on SSI while in the hospital Monitor blood sugar (5) Hypertension: Medications Continue on the upper side likely secondary to pain (6) Hyperlipidemia: (7) Hypothyroidism: Continue current supplement Admission and Anticipated Discharge Date Admission Date: April 01, 2020 Subjective 04/03/2020 Patient was seen and examined in medical floor She has been complaining of pain in the left leg around the left knee joint mainly Denies any other symptoms 04/04/2020 The patient was seen and examined in medical floor She has been much better as of today Complains to have ongoing pain around left knee and left lower extremity She has been getting physical therapy as advised Review of Systems Review of Systems: All systems reviewed and are unremarkable except as noted below Musculoskeletal: + joint pain (Left leg pain mainly around the left knee joint) Physical Exam Physical Exam: Lying in bed comfortably Constitutional: well developed, well nourished and + obese; no acute distress and not ill appearing Eyes: PERRL, conjunctivae normal, anicteric sclerae ENMT: external ear and nose normal, oropharynx normal Neck: trachea midline, no thyromegaly Respiratory: normal respiratory effort; no respiratory distress Auscultation: lungs clear to auscultation bilaterally Cardiovascular: Rate/Rhythm: regular rate and regular rhythm Heart Sounds: no murmur Gastrointestinal (Abdomen): Inspection/Auscultation: abdomen normal to inspection and normal bowel sounds; abdomen not distended Percussion/Palpation: abdomen soft; abdomen nontender Musculoskeletal: Left lower extremity is in brace with knee extension brace Neurologic: moves all extremities; no focal motor deficits Psychiatric: A+Ox3, euthymic affect Lymphatic: no cervical or axillary lymphadenopathy Results & Data Results & Data ([facility]) Vital Signs (Past 12 Hours) Vital Signs Temp Pulse Resp BP BP Pulse Ox 04/04/20 07:34 36.7 C 65 18 164/82 H 97 04/03/20 23:35 37.1 C 66 18 171/74 H 93 Medications Administered Current Inpatient Medications Acetaminophen (Acetaminophen 325 Mg Tab) 650 mg PO Q4H PRN PRN Reason: pain/fever Stop: 05/02/20 00:50 Last Admin: 04/04/20 09:39 Dose: 650 mg Documented by: Albuterol (Albuterol Hfa 8 Gm Inhaler) 2 puffs INH QID PRN PRN Reason: Shortness Of Breath Stop: 05/02/20 00:50 Atorvastatin Calcium (Atorvastatin 40 Mg Tab) 40 mg PO QAM [facility] Stop: 05/02/20 08:59 Last Admin: 04/04/20 08:34 Dose: 40 mg Documented by: Cholestyramine Resin (Cholestyramine Light 4 Gm Pkt) 4 gm PO BID@1000,2200 [facility] Stop: 05/02/20 09:59 Last Admin: 04/04/20 11:02 Dose: 4 gm Documented by: Dextrose (Dextrose 50% 50 Ml Syringe) 25 - 50 ml IV UD PRN; Protocol PRN Reason: Hypoglycemia Protocol Stop: 05/02/20 01:14 Ferrous Sulfate (Ferrous Sulfate 325 Mg Tab) 325 mg PO QAM [facility] Stop: 05/02/20 08:59 Last Admin: 04/04/20 08:35 Dose: 325 mg Documented by: Furosemide (Furosemide 40 Mg Tab) 40 mg PO QAM [facility] Stop: 05/02/20 08:59 Last Admin: 04/04/20 08:36 Dose: 40 mg Documented by: Glucagon (Glucagon For Inj 1 Mg Vial) 1 mg SQ UD PRN; Protocol PRN Reason: Hypoglycemia Protocol Stop: 05/02/20 01:14 Glucose (Glucose 40% Gel 15 Gm Tube) 15 - 30 gm PO UD PRN; Protocol PRN Reason: Hypoglycemia Protocol Stop: 05/02/20 01:14 Glucose (Glucose 10 Tabs/Tube) 4 - 8 tabs PO UD PRN; Protocol PRN Reason: Hypoglycemia Protocol Stop: 05/02/20 01:14 Hydralazine HCl (Hydralazine Hcl 20 Mg/Ml Vial) 7.5 mg IV Q6H PRN PRN Reason: Hypertension Stop: 05/02/20 00:50 Hydromorphone HCl (Hydromorphone Inj 1 Mg/Ml Syringe) 1 mg IV Q4H PRN PRN Reason: Pain Stop: 04/16/20 00:50 Last Admin: 04/02/20 13:26 Dose: 1 mg Documented by: Promethazine HCl 12.5 mg/ (Sodium Chloride) 50.5 mls @ 202 mls/hr IV Q6H PRN PRN Reason: Nausea And Vomiting Stop: 05/02/20 15:53 Insulin Aspart (Insulin Aspart 100 Units/Ml 3 Ml Pen) 0 units SC ACHS [facility] Stop: 05/02/20 20:59 Last Admin: 04/04/20 08:39 Dose: 6 units Documented by: Insulin Glargine (Insulin Glargine 100 Unit/Ml Vial) 60 units SC QPM [facility] Stop: 05/03/20 20:59 Last Admin: 04/03/20 21:01 Dose: 60 units Documented by: Levothyroxine Sodium (Levothyroxine Sodium 175 Mcg Tablet) 175 mcg PO DAILYBB [facility] Stop: 05/02/20 06:29 Last Admin: 04/04/20 05:58 Dose: 175 mcg Documented by: Lisinopril (Lisinopril 40 Mg Tab) 40 mg PO QAM [facility] Stop: 05/02/20 08:59 Last Admin: 04/04/20 08:32 Dose: 40 mg Documented by: Metoprolol Tartrate (Metoprolol Tartrate 25 Mg Tab) 37.5 mg PO BID [facility] Stop: 05/02/20 08:59 Last Admin: 04/04/20 08:32 Dose: 37.5 mg Documented by: Mirabegron (Mirabegron Er 25 Mg Tab) 50 mg PO QAM [facility] Stop: 05/02/20 08:59 Last Admin: 04/04/20 08:34 Dose: 50 mg Documented by: Miscellaneous (Carbohydrates For Hypoglycemia ) 15 - 30 gm PO UD PRN PRN Reason: Hypoglycemia Treatment Stop: 05/02/20 01:14 Multivitamins/Minerals (Calcium 600mg + Vit D 400 Iu Tab) 2 tab PO BID [facility] Stop: 05/02/20 08:59 Last Admin: 04/04/20 08:35 Dose: 2 tab Documented by: Ondansetron HCl (Ondansetron Inj 2 Mg/Ml 2 Ml Vial) 4 mg IV Q6H PRN PRN Reason: Nausea Stop: 05/02/20 00:50 Last Admin: 04/02/20 16:35 Dose: 4 mg Documented by: Oxycodone HCl (Oxycodone Hcl Ir 5 Mg Tab (Immediate Release)) 5 mg PO Q4H PRN PRN Reason: Pain Stop: 04/16/20 00:50 Last Admin: 04/04/20 09:39 Dose: 5 mg Documented by: Pantoprazole Sodium (Pantoprazole 40 Mg Tab) 40 mg PO QAM [facility] Stop: 05/02/20 08:59 Last Admin: 04/04/20 08:35 Dose: 40 mg Documented by: Polyethylene Glycol (Polyethylene (Miralax) 17 Gm Pack) 17 gm PO DAILY PRN PRN Reason: Constipation Stop: 05/02/20 00:50 Triamcinolone Acetonide (Triamcinolone Acet Nasal [place] 10.8ml Btl) 1 sprays NA DAILY PRN PRN Reason: Sinus Symptoms Stop: 05/02/20 00:50
[2020-04-04] MEDS: ENOXAPARIN INJ 40 MG/0.4 ML SYR SQ SCH (12:22)
[2020-04-04] MEDS: INSULIN GLARGINE 100 UNIT/ML VIAL SC SCH (20:51)
[2020-04-05 05:45] LABS: Basophils # (auto) 0.02 K/uL (0-0.2); Basophils % (auto) 0.3 %; Eosinophils # (auto) 0.34 K/uL (0-0.5); Eosinophils % (auto) 5.6 %; Hematocrit (blood only) 39.3 % (37-47); Immature Granulocytes # (auto) 0.02 K/uL (0.00-0.02); Immature Granulocytes % (auto) 0.3 %; Lymphocytes # (auto) 1.28 K/uL (1.2-3.4); Lymphocytes % (auto) 20.9 %; Mean Corpuscular Hemoglobin 29.1 pg (25-34); Mean Corpuscular Hgb Conc 33.1 g/dL (32-36); Mean Corpuscular Volume 87.9 fL (80-100); Mean Platelet Volume 8.8 fL (7.4-10.4); Monocytes # (auto) 0.52 K/uL (0.11-0.59); Monocytes % (auto) 8.5 %; Neutrophils # (auto) 3.94 K/uL (1.4-6.5); Neutrophils % (auto) 64.4 %; Platelet Count 288 K/uL (130-400); RDW Coefficient of Variation 13.4 % (11.5-14.5); Red Blood Count 4.47 M/uL (4.2-5.4); White Blood Count 6.12 K/uL (4.8-10.8)
[2020-04-05] MEDS: LEVOTHYROXINE SODIUM 175 MCG TABLET PO SCH (05:54)
[2020-04-05 06:12] LABS: BUN Creatinine Ratio 17.3 (10-20); Calcium 8.8 mg/dl (8.5-10.1); Creatinine Clr Calc Pharmacy 99.1 ml/min; Est GFR (African American) 100.9; Potassium 3.5 mmol/L (3.5-5.1)
[2020-04-05] MEDS: ATORVASTATIN 40 MG TAB PO SCH (08:41)
[2020-04-05] MEDS: FERROUS SULFATE 325 MG TAB PO SCH (08:41)
[2020-04-05] MEDS: CALCIUM 600MG + VIT D 400 IU TAB PO SCH (08:41)
[2020-04-05] MEDS: FUROSEMIDE 40 MG TAB PO SCH (08:41)
[2020-04-05] MEDS: METOPROLOL TARTRATE 25 MG TAB PO SCH (08:42)
[2020-04-05] MEDS: MIRABEGRON ER 25 MG TAB PO SCH (08:43)
[2020-04-05] MEDS: PANTOprazole 40 MG TAB PO SCH (08:43)
[2020-04-05] MEDS: ENOXAPARIN INJ 40 MG/0.4 ML SYR SQ SCH (08:43)
[2020-04-05] MEDS: lisinopriL 40 MG TAB PO SCH (08:43)
[2020-04-05] MEDS: INSULIN ASPART 100 UNITS/ML 3 ML PEN SC SCH ×2 (08:45→12:39)
--- NOTE | 2020-04-05 09:34 | Orthopedic Progress Note ---
Date of Service April 05, 2020 Assessment & Plan (1) Closed fracture of tibial plateau: Continue plan of care: Patient should remain non weight bearing with her knee locked in extension, using her knee extension brace. May open brace for comfort while resting. Continue DVT prophylaxis with SCDs and Lovenox 40 once daily. Follow up in our office in two weeks for continued care and new x-rays at that time. Present on Admission?: Yes Admission and Anticipated Discharge Date Admission Date: April 01, 2020 Subjective Reports that her pain is stable. She is able to manipulate the leg but is had difficulty with the brace sliding down. She thinks she is ready to go home today. Review of Systems Review of Systems: All systems reviewed & are unremarkable except as noted in HPI & below Physical Exam Physical Exam: Left lower extremity: Range of motion brace was shifted inferiorly slightly. I repositioned and adjusted the straps. She has positive dorsiflexion/plantarflexion. Sensation is grossly intact light touch. She has 2+ DP/PT pulses. Edema is stable about the knee. Constitutional: well developed and well nourished; no acute distress and not intoxicated appearing ENMT: external ear and nose normal, oropharynx normal Respiratory: normal respiratory effort; no respiratory distress Cardiovascular: Extremities: normal capillary refill; no edema Skin: no rashes, warm and dry Psychiatric: A+Ox3, euthymic affect Results & Data ([facility]) Vital Signs (Past 12 Hours) Vital Signs Temp Pulse Resp BP BP Pulse Ox 04/05/20 08:39 78 162/76 H 04/05/20 07:09 37.1 C 70 16 149/67 H 96 04/04/20 23:15 36.9 C 67 16 162/72 H 95 PG Care Time/CCT Total # of Minutes Spent Total Time Spent with Patient: Total time spent is greater than 50% in coordination of care (as documented) at patient's floor/unit and/or counseling patient: Coding Level of Care Code None Diagnoses Closed fracture of tibial plateau S82.142A Encounter type: initial encounter Laterality: left (1) Closed fracture of tibial plateau Encounter type: initial encounter Laterality: left Qualified Code(s): S82.142A - Displaced bicondylar fracture of left tibia, initial encounter for closed fracture
[2020-04-05] MEDS: CHOLESTYRAMINE LIGHT 4 GM PKT PO SCH (09:59)
--- NOTE | 2020-04-05 10:31 | Hospitalist Progress Note ---
Date of Service April 05, 2020 Assessment & Plan (1) Closed fracture of lateral portion of left tibial plateau: Status post mechanical fall while stepping down the stairs History of previous fall in September of this year with fracture of left medial tibial plateau CT scan of the left knee joint shows: 1. Acute, comminuted and slightly displaced lateral tibial plateau fracture with associated articular depression as above. Fracture extends inferiorly to the level of the proximal tibial metaphysis. 2. Acute fractures of the medial and lateral tibial spines. 3. Acute nondisplaced medial tibial plateau fracture. 4. Large lipohemarthrosis. Has acute fractures involving the tibial plateau and spine Pain control and PT and OT evaluation Appreciate Ortho input and recommendation as follows: -Patient should remain non weight bearing with her knee locked in extension, using her knee extension brace. -She understands she can open her brace, when at rest, as long as she keep her knee locked in extension. -Continue DVT prophylaxis with SCDs and Lovenox 40 once daily -She will follow up in our office in two weeks for continued care and new x-rays at that time. She remains stable and clinically a lot better today She has had PT evaluation with recommendation to go home She wants to go home today and will be discharged this afternoon Recurrent falls History of fall in September with left medial tibial plateau fracture treated conservatively (2) Closed fracture of tibial spine: As above (3) Left medial tibial plateau fracture: As above (4) Diabetes mellitus, type 2: We will put her on SSI while in the hospital Monitor blood sugar-stable (5) Hypertension: Medications Continue on the upper side likely secondary to pain (6) Hyperlipidemia: (7) Hypothyroidism: Continue current supplement She will be discharged home this afternoon She was advised to make an appointment with her primary care physician within 7 days and keep appointment with orthopedic surgeon as advised Admission and Anticipated Discharge Date Admission Date: April 01, 2020 Subjective 04/03/2020 Patient was seen and examined in medical floor She has been complaining of pain in the left leg around the left knee joint mainly Denies any other symptoms 04/04/2020 The patient was seen and examined in medical floor She has been much better as of today Complains to have ongoing pain around left knee and left lower extremity She has been getting physical therapy as advised 04/05/2020 The patient was seen and examined in medical floor She has been out of bed on a chair without any acute distress at rest She feels that she is ready to go home today Denies any significant symptoms Review of Systems Review of Systems: All systems reviewed and are unremarkable except as noted below Musculoskeletal: + joint pain (Left leg pain mainly around the left knee joint) Physical Exam Physical Exam: Sitting on a chair without any acute distress Constitutional: well developed, well nourished and + obese; no acute distress and not ill appearing Eyes: PERRL, conjunctivae normal, anicteric sclerae ENMT: external ear and nose normal, oropharynx normal Neck: trachea midline, no thyromegaly Respiratory: normal respiratory effort; no respiratory distress Auscultation: lungs clear to auscultation bilaterally Cardiovascular: Rate/Rhythm: regular rate and regular rhythm Heart Sounds: no murmur Gastrointestinal (Abdomen): Inspection/Auscultation: abdomen normal to inspection and normal bowel sounds; abdomen not distended Percussion/Palpation: abdomen soft; abdomen nontender Musculoskeletal: Left knee is in brace. Pain in left knee with any movement of the left lower extremity Neurologic: moves all extremities; no focal motor deficits Psychiatric: A+Ox3, euthymic affect Lymphatic: no cervical or axillary lymphadenopathy Results & Data Results & Data ([facility]) Vital Signs (Past 12 Hours) Vital Signs Temp Pulse Resp BP BP Pulse Ox 04/05/20 08:39 78 162/76 H 04/05/20 07:09 37.1 C 70 16 149/67 H 96 04/04/20 23:15 36.9 C 67 16 162/72 H 95 Laboratory Results Short CBC 04/05/20 Range/Units 05:11 WBC 6.12 (4.8-10.8) K/uL Hgb 13.0 (12.0-16.0) g/dL Hct 39.3 (37-47) % Plt Count 288 (130-400) K/uL BMP 04/05/20 05:11 Sodium 143 Potassium 3.5 Chloride 108 H Carbon Dioxide 31 BUN 13 Creatinine 0.73 Glucose 126 H Calcium 8.8 Medications Administered Current Inpatient Medications Acetaminophen (Acetaminophen 325 Mg Tab) 650 mg PO Q4H PRN PRN Reason: pain/fever Stop: 05/02/20 00:50 Last Admin: 04/04/20 19:20 Dose: 650 mg Documented by: Albuterol (Albuterol Hfa 8 Gm Inhaler) 2 puffs INH QID PRN PRN Reason: Shortness Of Breath Stop: 05/02/20 00:50 Atorvastatin Calcium (Atorvastatin 40 Mg Tab) 40 mg PO QAM [facility] Stop: 05/02/20 08:59 Last Admin: 04/05/20 08:41 Dose: 40 mg Documented by: Cholestyramine Resin (Cholestyramine Light 4 Gm Pkt) 4 gm PO BID@1000,2200 [facility] Stop: 05/02/20 09:59 Last Admin: 04/05/20 09:59 Dose: 4 gm Documented by: Dextrose (Dextrose 50% 50 Ml Syringe) 25 - 50 ml IV UD PRN; Protocol PRN Reason: Hypoglycemia Protocol Stop: 05/02/20 01:14 Enoxaparin Sodium (Enoxaparin Inj 40 Mg/0.4 Ml Syr) 40 mg SQ [facility] Stop: 05/04/20 11:29 Last Admin: 04/05/20 08:43 Dose: 40 mg Documented by: Ferrous Sulfate (Ferrous Sulfate 325 Mg Tab) 325 mg PO [facility] Stop: 05/02/20 08:59 Last Admin: 04/05/20 08:41 Dose: 325 mg Documented by: Furosemide (Furosemide 40 Mg Tab) 40 mg PO QAM [facility] Stop: 05/02/20 08:59 Last Admin: 04/05/20 08:41 Dose: 40 mg Documented by: Glucagon (Glucagon For Inj 1 Mg Vial) 1 mg SQ UD PRN; Protocol PRN Reason: Hypoglycemia Protocol Stop: 05/02/20 01:14 Glucose (Glucose 40% Gel 15 Gm Tube) 15 - 30 gm PO UD PRN; Protocol PRN Reason: Hypoglycemia Protocol Stop: 05/02/20 01:14 Glucose (Glucose 10 Tabs/Tube) 4 - 8 tabs PO UD PRN; Protocol PRN Reason: Hypoglycemia Protocol Stop: 05/02/20 01:14 Hydralazine HCl (Hydralazine Hcl 20 Mg/Ml Vial) 7.5 mg IV Q6H PRN PRN Reason: Hypertension Stop: 05/02/20 00:50 Hydromorphone HCl (Hydromorphone Inj 1 Mg/Ml Syringe) 1 mg IV Q4H PRN PRN Reason: Pain Stop: 04/16/20 00:50 Last Admin: 04/02/20 13:26 Dose: 1 mg Documented by: Promethazine HCl 12.5 mg/ (Sodium Chloride) 50.5 mls @ 202 mls/hr IV Q6H PRN PRN Reason: Nausea And Vomiting Stop: 05/02/20 15:53 Insulin Aspart (Insulin Aspart 100 Units/Ml 3 Ml Pen) 0 units SC ACHS [facility] Stop: 05/02/20 20:59 Last Admin: 04/05/20 08:45 Dose: 6 units Documented by: Insulin Glargine (Insulin Glargine 100 Unit/Ml Vial) 60 units SC QPM [facility] Stop: 05/03/20 20:59 Last Admin: 04/04/20 20:51 Dose: 60 units Documented by: Levothyroxine Sodium (Levothyroxine Sodium 175 Mcg Tablet) 175 mcg PO DAILYBB [facility] Stop: 05/02/20 06:29 Last Admin: 04/05/20 05:54 Dose: 175 mcg Documented by: Lisinopril (Lisinopril 40 Mg Tab) 40 mg PO QAM [facility] Stop: 05/02/20 08:59 Last Admin: 04/05/20 08:43 Dose: 40 mg Documented by: Metoprolol Tartrate (Metoprolol Tartrate 25 Mg Tab) 37.5 mg PO BID [facility] Stop: 05/02/20 08:59 Last Admin: 04/05/20 08:42 Dose: 37.5 mg Documented by: Mirabegron (Mirabegron Er 25 Mg Tab) 50 mg PO QAM [facility] Stop: 05/02/20 08:59 Last Admin: 04/05/20 08:43 Dose: 50 mg Documented by: Miscellaneous (Carbohydrates For Hypoglycemia ) 15 - 30 gm PO UD PRN PRN Reason: Hypoglycemia Treatment Stop: 05/02/20 01:14 Multivitamins/Minerals (Calcium 600mg + Vit D 400 Iu Tab) 2 tab PO BID [facility] Stop: 05/02/20 08:59 Last Admin: 04/05/20 08:41 Dose: 2 tab Documented by: Ondansetron HCl (Ondansetron Inj 2 Mg/Ml 2 Ml Vial) 4 mg IV Q6H PRN PRN Reason: Nausea Stop: 05/02/20 00:50 Last Admin: 04/02/20 16:35 Dose: 4 mg Documented by: Oxycodone HCl (Oxycodone Hcl Ir 5 Mg Tab (Immediate Release)) 5 mg PO Q4H PRN PRN Reason: Pain Stop: 04/16/20 00:50 Last Admin: 04/04/20 19:18 Dose: 5 mg Documented by: Pantoprazole Sodium (Pantoprazole 40 Mg Tab) [facility] [place] Stop: 05/02/20 08:59 Last Admin: 04/05/20 08:43 Dose: 40 mg Documented by: Polyethylene Glycol (Polyethylene (Miralax) 17 Gm Pack) 17 gm PO DAILY PRN PRN Reason: Constipation Stop: 05/02/20 00:50 Triamcinolone Acetonide (Triamcinolone Acet Nasal [place] 10.8ml Btl) 1 sprays NA DAILY PRN PRN Reason: Sinus Symptoms Stop: 05/02/20 00:50
[2020-04-05] MEDS: ACETAMINOPHEN 325 MG TAB PO PRN (11:36)
[2020-04-05] MEDS: OXYCODONE HCL IR 5 MG TAB (IMMEDIATE RELEASE) PO PRN (11:37)
[2020-04-05] MEDS ORDERED: Nursing to Pharmacy Communication SCH (13:00)
[2020-04-05] MEDS ORDERED: ENOXAPARIN INJ 40 MG/0.4 ML SYR SQ SCH (13:00)
--- NOTE | 2020-04-06 07:55 | Discharge Summary ---
Date of Service April 06, 2020 Admission HPI Per Admitting Provider DICTATED BY: Ryan Charles MD DATE OF ADMISSION: 04/01/2020 CHIEF COMPLAINT: Status post fall and left knee pain. HISTORY OF PRESENT ILLNESS: A 65-year-old female with past medical history significant for diabetes, hyperlipidemia, hypertension, aortic valve disorder, obesity, history of GI bleed, history of tobacco abuse, generalized weakness, vertigo, ambulatory dysfunction, who presents with a fall. The patient says she twisted her knee in September and was found to have left medial tibial plateau fracture treated conservatively with a brace. Since February, she is not on any brace, follows with orthopedics. Today she went to get some apples from a local apple orchard and when she was coming down the steps, she suddenly felt the left knee popped and she fell down and felt a loss of sense of weight on the left leg and severe pain radiating up to the hip. She came to the ER and imaging study is showing acute comminuted and slightly displaced lateral tibial fracture with associated articular depression. Fracture extends interior to the level of the proximal tibial metaphysis, acute fracture of the medial and lateral tibial spines, acute nondisplaced medial tibial lateral fracture. ER discussed with ortho. Plan to keep her in the hospital. To be seen by ortho in the a.m. The patient was not able to ambulate on her own in the ER, she required a lot of help. Currently, any movement is causing severe pain. Otherwise resting comfortably and hemodynamically stable. Denies any headache, no blurred vision, no earache, no runny nose, no sore throat, no cough, no dysphagia. Appetite is okay. No chest pain, no shortness of breath. Was nauseous earlier, that has improved. No abdominal pain. Normal bowel and bladder movements. No rash. Admission Exam Per Admitting Provider GENERAL: The patient is alert and oriented, not in acute distress. VITAL SIGNS: Temperature 36.8, pulse 67, respiratory rate 20, blood pressure 206/99, oxygen 95% on room air. HEENT: Pupils equal, round, reactive to light. Oral mucosa moist. NECK: No neck masses seen, supple. CARDIOVASCULAR: S1, S2 heard, regular rate and rhythm, no murmur, no gallop. RESPIRATORY SYSTEM: Normal AP diameter. No accessory muscle use. No wheezing, no crackles. ABDOMEN: Soft, bowel sounds present, nontender. No distention. CENTRAL NERVOUS SYSTEM: Cranial nerves II-XII grossly intact, nonfocal. EXTREMITIES: Left knee is in brace. Painful movement of left lower extremity. Pedal edema present. Principal Diagnosis Closed fracture of left tibial plateau, status post mechanical fall, type 2 diabetes, hypothyroidism Discharge Exam Constitutional well developed, well nourished and + obese; no acute distress and not ill appearing Eyes PERRL, conjunctivae normal, anicteric sclerae ENMT external ear and nose normal, oropharynx normal Neck trachea midline, no thyromegaly Respiratory normal respiratory effort; no respiratory distress Auscultation: lungs clear to auscultation bilaterally Cardiovascular Rate/Rhythm: regular rate and regular rhythm Heart Sounds: no murmur Gastrointestinal (Abdomen) Inspection/Auscultation: abdomen normal to inspection and normal bowel sounds; abdomen not distended Percussion/Palpation: abdomen soft; abdomen nontender Neurologic moves all extremities; no focal motor deficits Psychiatric A+Ox3, euthymic affect Lymphatic no cervical or axillary lymphadenopathy Discharge Data Allergies Allergy/AdvReac Type Severity Reaction Status Date / Time No Known Allergies Allergy Verified 04/01/20 21:53 Consultations 04/01/20 22:05 ED Decision to Admit Stat 04/02/20 00:51 Consult Case Management - Discharge Planning Routine 04/02/20 08:00 Consult Orthopedic Surgery Routine 04/03/20 08:10 Consult Orthopedic Surgery Routine 04/05/20 10:17 Consult Case Management - Discharge Planning Routine Ordered Studies 04/01/20 19:01 CT knee LT wo con Stat Hospital Course (1) Closed fracture of lateral portion of left tibial plateau: Status post mechanical fall while stepping down the stairs History of previous fall in September of this year with fracture of left medial tibial plateau CT scan of the left knee joint shows: 1. Acute, comminuted and slightly displaced lateral tibial plateau fracture with associated articular depression as above. Fracture extends inferiorly to the level of the proximal tibial metaphysis. 2. Acute fractures of the medial and lateral tibial spines. 3. Acute nondisplaced medial tibial plateau fracture. 4. Large lipohemarthrosis. Has acute fractures involving the tibial plateau and spine Pain control and PT and OT evaluation Appreciate Ortho input and recommendation as follows: -Patient should remain non weight bearing with her knee locked in extension, using her knee extension brace. -She understands she can open her brace, when at rest, as long as she keep her knee locked in extension. -Continue DVT prophylaxis with SCDs and Lovenox 40 once daily -She will follow up in our office in two weeks for continued care and new x-rays at that time. She remains stable and clinically a lot better today She has had PT evaluation with recommendation to go home She wants to go home today and will be discharged this afternoon Recurrent falls History of fall in September with left medial tibial plateau fracture treated conservatively (2) Closed fracture of tibial spine: As above (3) Left medial tibial plateau fracture: As above (4) Diabetes mellitus, type 2: We will put her on SSI while in the hospital Monitor blood sugar-stable (5) Hypertension: Medications Continue on the upper side likely secondary to pain (6) Hyperlipidemia: (7) Hypothyroidism: Continue current supplement She will be discharged home this afternoon She was advised to make an appointment with her primary care physician within 7 days and keep appointment with orthopedic surgeon as advised Total Time Total Time Spent Total Time Spent (In Minutes): 40 minutes Total Time Includes: Examination of the Patient, Discharge Planning, Medication Reconciliation and Communication With Other Providers Discharge Plan Discharge Items Patient Disposition: Home - Self-Care Reason For Visit: FALL, LEFT TIBIAL FX Discharge Diagnosis: Closed fracture of left tibial plateau, status post mechanical fall, type 2 diabetes, hypothyroidism Condition on Discharge: Good Activity: As commented below Activity Comment: As advised by PT therapist and orthopedic surgeon Non-emergency contact: Primary Care Provider Call non-emergency contact if: you have any medication questions and your symptoms worsen Follow-up/Referrals: Usman Heredia [Primary Care Provider] - (Please make an appointment with your primary care physician within 1 week. Keep appointment with orthopedic surgeon as advised) Diet: Carb Consistent or DM2 Addtl Attending Provider Instructions: Please take precaution to avoid falls Follow the instructions as advised by orthopedic surgeon:Patient should remain non weight bearing with her knee locked in extension, using her knee extension brace. May open brace for comfort while resting. Continue DVT prophylaxis with subcu Lovenox 40 once daily. Pending Studies at Discharge: No Stand-Alone Forms: Satiety, Opioid Pain Management, Smoking Cessation Medications and DC Order Prescriptions: New oxycodone 5 mg tablet 5 mg PO Q4H Qty: 15 RF: 0 methocarbamol [Robaxin-750] 750 mg tablet 750 mg PO TID PRN (Reason: muscle spasm) Qty: 20 RF: 0 enoxaparin 40 mg/0.4 mL Syringe 40 mg subcut QAM 40 Days Qty: 40 RF: 0 Continued Myrbetriq 50 mg tablet extended release 24 hr 50 mg PO QAM RF: 0 furosemide 40 mg Tablet 40 mg PO QAM RF: 0 atorvastatin 40 mg Tablet 40 mg PO QAM RF: 0 metformin 500 mg Tablet 1,000 mg PO BID RF: 0 levothyroxine 175 mcg Tablet 175 mcg PO QAM RF: 0 ferrous sulfate [iron] 325 mg (65 mg iron) Tablet 325 mg PO QAM RF: 0 esomeprazole magnesium [Nexium] 40 mg Capsule,Delayed Release(Dr/Ec) 40 mg PO QAM RF: 0 triamcinolone acetonide [Nasacort] 55 mcg Aerosol,[place] 1 spray INTRANASAL DAILY PRN (Reason: Sinus Symptoms) RF: 0 albuterol sulfate [Ventolin HFA] 90 mcg/actuation Hfa Aerosol Inhaler 2 puff INHALATION QID PRN (Reason: Shortness Of Breath) RF: 0 lisinopril 40 mg Tablet 40 mg PO QAM RF: 0 insulin lispro [Humalog KwikPen Insulin] 100 unit/mL Insulin Pen 6 - 8 unit SUBCUT TIDM RF: 0 metoprolol tartrate 25 mg Tablet 37.5 mg PO BID RF: 0 Cholestyramine Light 4 gram Powder 4 g PO BID RF: 0 Caltrate 600 plus D 600 mg (1,500 mg)-800 unit Tablet,Chewable 2 tab PO BID RF: 0 Toujeo SoloStar U-300 Insulin 300 unit/mL (1.5 mL) Insulin Pen 60 unit SUBCUT QPM RF: 0 Discharge Orders: Discharge Order (Routine); Ordered 04/05/20 Ordered By: Cecilia Santos/Other Patient Handouts: Managing Type 2 Diabetes, Managing Diabetes: The A1C Test, Enoxaparin injection Admission Data Admit Date/Time: 04/01/20 23:10 Attending Provider: Cecilia Conteh Admit Provider: Ryan Charles Primary Care Provider: Usman Heredia Other Providers: Ryan Charles ; Benny Hernandez ; Merrick Hull Other Interventions: Discharge Summary Assessment (RN) Last Done: 04/05/20 13:39
== END 2020-04-05 14:54 | disposition home or self-care (01) ==
LOC: ED 17:31 → 3W 23:10 → INTOOBSV 23:10 → 3W 04-02 00:25

== ENCOUNTER 2020-12-11 06:25 | Observation (INO) ==
--- NOTE | 2020-11-23 14:30 | PAT Medication Instructions ---
Medication Instructions Date of Service November 23, 2020 Home Medications Caltrate 600 plus D 2 tab PO BID Cholestyramine Light 4 g PO BID Toujeo SoloStar U-300 Insulin 60 unit SUBCUT HS albuterol sulfate [Ventolin HFA] 2 puff INHALATION QID PRN atorvastatin 40 mg PO QAM esomeprazole magnesium [Nexium] 40 mg PO QAM ferrous sulfate [iron] 325 mg PO QAM furosemide 40 mg PO QAM insulin lispro [Humalog KwikPen Insulin] 6 - 8 unit SUBCUT TIDM levothyroxine 175 mcg PO QAM lisinopril 40 mg PO QAM metformin 1,000 mg PO BID metoprolol tartrate 37.5 mg PO BID triamcinolone acetonide [Nasacort] 1 spray INTRANASAL DAILY PRN Myrbetriq 50 mg PO QAM aspirin [Aspir-Low] 81 mg PO QAM psyllium husk [Metamucil] 0.52 g PO BID STOP taking 48 hours before surgery Cholestyramine Light 4 g PO BID DO NOT take the morning of surgery Caltrate 600 plus D 2 tab PO BID ferrous sulfate [iron] 325 mg PO QAM furosemide 40 mg PO QAM insulin lispro [Humalog KwikPen Insulin] 6 - 8 unit SUBCUT TIDM lisinopril 40 mg PO QAM metformin 1,000 mg PO BID Myrbetriq 50 mg PO QAM psyllium husk [Metamucil] 0.52 g PO BID Take morning of surgery With a small sip of water, OTHERWISE NOTHING TO EAT OR DRINK AFTER MIDNIGHT: albuterol sulfate [Ventolin HFA] 2 puff INHALATION QID PRN (use if needed; please bring rescue inhaler with you to hospital day of surgery if possible) atorvastatin 40 mg PO QAM esomeprazole magnesium [Nexium] 40 mg PO QAM levothyroxine 175 mcg PO QAM metoprolol tartrate 37.5 mg PO BID triamcinolone acetonide [Nasacort] 1 spray INTRANASAL DAILY PRN (if needed) aspirin [Aspir-Low] 81 mg PO QAM (take as normal unless told otherwise by noelle geon) Take evening before surgery Caltrate 600 plus D 2 tab PO BID Toujeo SoloStar U-300 Insulin 60 unit SUBCUT HS albuterol sulfate [Ventolin HFA] 2 puff INHALATION QID PRN (if needed) insulin lispro [Humalog KwikPen Insulin] 6 - 8 unit SUBCUT TIDM metformin 1,000 mg PO BID metoprolol tartrate 37.5 mg PO BID triamcinolone acetonide [Nasacort] 1 spray INTRANASAL DAILY PRN (if needed) psyllium husk [Metamucil] 0.52 g PO BID Other Notes If you have any questions please call us at [phone] or [phone] or [phone] or [phone]
--- NOTE | 2020-11-26 08:38 | Anesthesiology Consultation ---
Date of Service November 26, 2020 Assessment & Plan (1) Encounter for pre-operative examination: - COVID screening: Per assessment on 11/26: Travel screen negative, no known COVID-19 positive contacts or current COVID-19 related symptoms. Patient fully vaccinated. Surgeon arranging preop COVID testing (scheduled 12/07; [facility]). Awaiting results. - Check BSG AM DOS - S/P Right shoulder arthroscopy (01/31/19): LMA#5 + PNB at [facility] Chart Review Chart Review: Acceptable Risk for Surgery and Patient seen in Pre Admission Testing Teaching & Discussion Pre-Anesthesia Teaching/Discussion Notes: Instructed NPO after midnight before surgery,except medications with 15 cc of water. Medication instructions provided according to the PAT guidelines. History Surgery Operation Date: 12/11/20 10:30 Proposed Procedures p Left Total Knee Arthroplasty - Kana Lerma DO Height/Weight Height: 5 ft 5 in Weight: 114.4 kg Allergies Allergy/AdvReac Type Severity Reaction Status Date / Time No Known Allergies Allergy Verified 11/19/20 15:20 Medications Home Medications Medication Instructions Recorded Confirmed Last Taken Caltrate 600 plus D 2 tab PO BID 01/03/19 11/19/20 05/18/20 Cholestyramine Light 4 g PO BID 01/03/19 11/19/20 05/18/20 Ernesto Jerome U-300 Insulin 60 unit SUBCUT HS 01/03/19 11/19/20 05/18/20 albuterol sulfate [Ventolin HFA] 2 puff INHALATION QID PRN 01/03/19 11/19/20 Unknown atorvastatin 40 mg PO QAM 01/03/19 11/19/20 05/18/20 esomeprazole magnesium [Nexium] 40 mg PO QAM 01/03/19 11/19/20 05/18/20 ferrous sulfate [iron] 325 mg PO QAM 01/03/19 11/19/20 05/18/20 furosemide 40 mg PO QAM 01/03/19 11/19/20 05/18/20 insulin lispro [Humalog KwikPen 6 - 8 unit SUBCUT TIDM 01/03/19 11/19/20 05/18/20 Insulin] levothyroxine 175 mcg PO QAM 01/03/19 11/19/20 05/19/20 lisinopril 40 mg PO QAM 01/03/19 11/19/20 05/18/20 metformin 1,000 mg PO BID 01/03/19 11/19/20 05/18/20 metoprolol tartrate 37.5 mg PO BID 01/03/19 11/19/20 05/18/20 triamcinolone acetonide [Nasacort] 1 spray INTRANASAL DAILY PRN 01/03/19 11/19/20 01/30/19 Myrbetriq 50 mg PO QAM 04/01/20 11/19/20 05/18/20 aspirin [Aspir-Low] 81 mg PO QAM 05/19/20 11/19/20 05/19/20 psyllium husk [Metamucil] 0.52 g PO BID 11/19/20 11/19/20 Unknown Past Medical History Medical History Arthritis Bursitis Diabetes mellitus, type 2 IDDM GERD (gastroesophageal reflux disease) controlled Hearing deficit Hx of Clostridium difficile infection 2016 Hyperlipidemia Hypertension Hypothyroidism Migraine Hx Morbid obesity Overactive bladder Seasonal allergies Reason for ventolin per pt Exercise / Class Metabolic Activity III < 4 Walking/Shop/Light housework (uses walker (no chest pain/no sob with walking)) Past Family History Family History Mother Diabetes Sister Diabetes Brother Diabetes Past Surgical History Surgical History History of cholecystectomy History of colonoscopy History of esophagogastroduodenoscopy (EGD) History of hysterectomy KWASI BSO History of laparoscopy Multiple History of lumpectomy Right > benign History of repair of right rotator cuff Right shoulder arthroscopy (01/31/19): LMA#5 + PNB at [facility] History of tooth extraction Past Anesthesia History No Hx of Anesthesia Complications and No Family Hx of Anesthesia Complications History of PONV No Hx of PONV and Hx of Motion Sickness (As child) Social History Smoking Status: Former smoker Do You Dip or Chew Tobacco: No Smoking End Date: Quit several years ago Hx Alcohol Use: Yes Alcohol type: beer and wine alcohol intake frequency: holidays/special occasions only Hx Substance Use: No substance use type: does not use Review of Systems No snoring. Patient denies chest pain, shortness of breath, fever, chills, cough, wheezing, palpitations. Physical Exam Vital Signs VITALS BP 149/67 P 59 TEMP 98.2 SP02 96%RA RESP 18 PHYSICAL Full cervical extension range of motion. Full TMJ range of motion. TMD 4 finger breaths Mallampati Score 3 Dentition: several missing molars Lungs: clear throughout to auscultation Cardiac: regular rate and rhythm, distant heart sounds Spine: normal Carotid arteries: negative bruit Extremities: no edema Testing Laboratory Results 11/26/20 08:55 11/26/20 08:55 PT 10.2 Seconds (9.0-12.0) 11/26/20 20:00 INR 1.0 (0.9-1.1) 11/26/20 20:00 APTT 23.9 Seconds (21.0-31.0) 11/26/20 20:00 Hemoglobin A1c 8.9 % (4.5-5.6) H 11/26/20 20:00 Blood Type B Positive 11/26/20 20:00 Antibody Screen NEGATIVE 11/26/20 20:00 Surgeon's office made aware of elevated hgba1c/glucose Electrocardiogram Date: 05/19/20 NSR at 70bpm. PRWP, consider anterior [place] vs. lead placement vs. LVH. NS STA. No significant change compared to 01/03/19 per dot compliance manager review. Chest X-Ray Date: 05/19/20 Findings: + NAD Stress Test Date: 06/03/15 1. Stress ECG changes are nondiagnostic due to resting ST abnormalities. 2. With pharmacologic stress, the patient experienced no cardiovascular s ymptoms. 3. Normal myocardial perfusion with breast attenuation artifact. 4. LV systolic function is normal. 5. The LVEF is calculated to be >70%. 6. There is a low risk/extent of ischemia. Subsequent cardiac cath 06/2015* Cardiac Catheterization Date: 06/26/15 Minimal luminal irregularities only in the coronary arteries. Normal left ventricular function. The EF was 65%. No valvular abnormalities.
[2020-11-26 10:54] LABS: Basophils # (auto) 0.04 K/uL (0-0.2); Basophils % (auto) 0.5 %; Eosinophils # (auto) 0.26 K/uL (0-0.5); Eosinophils % (auto) 3.5 %; Hemoglobin 14.3 g/dL (12.0-16.0); Immature Granulocytes # (auto) 0.01 K/uL (0.00-0.02); Immature Granulocytes % (auto) 0.1 %; Lymphocytes # (auto) 1.42 K/uL (1.2-3.4); Lymphocytes % (auto) 19.1 %; Mean Corpuscular Hemoglobin 29.5 pg (25-34); Mean Corpuscular Hgb Conc 33.3 g/dL (32-36); Mean Corpuscular Volume 88.8 fL (80-100); Mean Platelet Volume 9.4 fL (7.4-10.4); Monocytes # (auto) 0.56 K/uL (0.11-0.59); Monocytes % (auto) 7.5 %; Neutrophils # (auto) 5.13 K/uL (1.4-6.5); Neutrophils % (auto) 69.3 %; Platelet Count 313 K/uL (130-400); RDW Coefficient of Variation 12.8 % (11.5-14.5); RDW Standard Deviation 41.4 fL (36.4-46.3); Red Blood Count 4.84 M/uL (4.2-5.4); White Blood Count 7.42 K/uL (4.8-10.8)
[2020-11-26 11:04] LABS: Partial Thromboplastin Ratio 0.9; Partial Thromboplastin Time 23.9 Seconds (21.0-31.0); Prothrombin Time 10.2 Seconds (9.0-12.0)
[2020-11-26 11:15] LABS: BUN Creatinine Ratio 15.9 (10-20); Calcium 9.5 mg/dl (8.5-10.1); Creatinine Clr Calc Pharmacy 98.3 ml/min; Est GFR (African American) 100.9 ml/min; Potassium 4.7 mmol/L (3.5-5.1)
[2020-11-26 12:12] LABS: Estimated Average Glucose 209 mg/dl; Hemoglobin A1C 8.9 % (4.5-5.6)
--- NOTE | 2020-12-10 12:49 | History & Physical Report ---
Date of Service December 10, 2020 Assessment & Plan (1) Traumatic arthritis of left knee: We will proceed with a left total knee arthroplasty. Postoperatively she will be started on aspirin for DVT prophylaxis and kept overnight in the hospital for postoperative medical management. She plans to use home health in [place] upon discharge. History of Present Illness Chief Complaint: Posttraumatic osteoarthritis of the left knee . Primary Care Provider: Usman Hare is a pleasant 65-year-old female who fell over a year ago. She sustained a tibial plateau fracture of her left knee. Unfortunate she has had a rough recovery with it. She has been mostly in a wheelchair. She continues to struggle with her left knee. She there is a lot she cannot do. MRI has shown depression of the lateral tibial plateau. After failing extensive conservative treatment, she has elected proceed with a left total knee arthroplasty. . Allergies Allergy/AdvReac Type Severity Reaction Status Date / Time No Known Allergies Allergy Verified 11/19/20 15:20 Home Medications Medication Instructions Recorded Confirmed Type Caltrate 600 plus D 2 tab PO BID 01/03/19 11/19/20 History Cholestyramine Light 4 g PO BID 01/03/19 11/19/20 History Toujeo SoloStar U-300 Insulin 60 unit SUBCUT HS 01/03/19 11/19/20 History albuterol sulfate [Ventolin HFA] 2 puff INHALATION QID PRN 01/03/19 11/19/20 History atorvastatin 40 mg PO QAM 01/03/19 11/19/20 History esomeprazole magnesium [Nexium] 40 mg PO QAM 01/03/19 11/19/20 History ferrous sulfate [iron] 325 mg PO QAM 01/03/19 11/19/20 History furosemide 40 mg PO QAM 01/03/19 11/19/20 History insulin lispro [Humalog KwikPen 6 - 8 unit SUBCUT TIDM 01/03/19 11/19/20 History Insulin] levothyroxine 175 mcg PO QAM 01/03/19 11/19/20 History lisinopril 40 mg PO QAM 01/03/19 11/19/20 History metformin 1,000 mg PO BID 01/03/19 11/19/20 History metoprolol tartrate 37.5 mg PO BID 01/03/19 11/19/20 History triamcinolone acetonide [Nasacort] 1 spray INTRANASAL DAILY PRN 01/03/19 11/19/20 History Myrbetriq 50 mg PO QAM 04/01/20 11/19/20 History aspirin [Aspir-Low] 81 mg PO QAM 05/19/20 11/19/20 History psyllium husk [Metamucil] 0.52 g PO BID 11/19/20 11/19/20 History Past Med/Surg History Medical History Arthritis Bursitis Diabetes mellitus, type 2 IDDM GERD (gastroesophageal reflux disease) controlled Hearing deficit Hx of Clostridium difficile infection 2015 Hyperlipidemia Hypertension Hypothyroidism Migraine Hx Morbid obesity Overactive bladder Seasonal allergies Reason for ventolin per pt Surgical History History of cholecystectomy History of colonoscopy History of esophagogastroduodenoscopy (EGD) History of hysterectomy KWASI BSO History of laparoscopy Multiple History of lumpectomy Right > benign History of repair of right rotator cuff Right shoulder arthroscopy (01/31/19): LMA#5 [place] [facility] [place] of tooth extraction Family History Mother Diabetes Sister Diabetes Brother Diabetes Social History Smoking Status: Former smoker Second Hand Exposure: No; Hx Alcohol Use: Yes Alcohol type: beer and wine Hx Substance Use: No Preferred Language: Latvian Communication Ability: Effective 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 Physical Exam On physical examination of the left knee, she is wearing a knee brace. All of her pain is located medially and laterally in the posterior tibial plateau. She has range of motion of 0 to 120 degrees. She has some instability around the posterior lateral corner. . Constitutional WD/WN, vitals as above Eyes PERRL, conjunctivae normal, anicteric sclerae ENMT external ear and nose normal, oropharynx normal Neck trachea midline, no thyromegaly Respiratory normal respiratory effort Cardiovascular RRR, no murmur, no edema Gastrointestinal (Abdomen) normal bowel sounds, soft, nontender, no hepatosplenomegaly Psychiatric A+Ox3, euthymic affect Results & Data Results & Data Laboratory Results . Diagnostic Findings MRI of the left knee shows no definitive meniscus tears but a depressed fracture of the lateral tibial plateau. . PG Care Time/CCT Total # of Minutes Spent Total Time Spent with Patient: Total time spent is greater than 50% in coordination of care (as documented) at patient's floor/unit and/or counseling patient: Coding Level of Care Code None Diagnoses Traumatic arthritis of left knee M12.562
[~2020-12-11 06:25] MED LIST: ACETAMINOPHEN 500 MG TAB PO SCH; FAMOTIDINE 20 MG TAB PO SCH; GABAPENTIN 600 MG DOSE PO SCH; LR 500ML BOLUS, THEN 15ML/HR IV SCH; LR 60ML/HR IV SCH; ROPIVACAINE 0.5% HCL/PF 150 MG, BUPIVACAINE 0.75% MPF 20 ML, EPINEPHrine 30MG/30ML (OR ... INSTIL SCH; TRANEXAMIC ACID 1,000 MG **IV Intra-op IV SCH; TRANEXAMIC ACID 1,000 MG **IV Pre-op IV SCH; ceFAZolin 2000MG 2,000 MG/15 ML SYR IV SCH; dexAMETHasone 4 MG TAB PO SCH
[2020-12-11] MEDS ORDERED: BUPIVACAINE 0.5 % 5 MG/1 ML PF 10ML VIAL ONE (07:08)
[2020-12-11] MEDS ORDERED: ROPIVACAINE 0.5% 5 MG/ML 30 ML VIAL ONE (07:08)
[2020-12-11] MEDS ORDERED: LIDOCAINE 2% 2 ML VIAL/AMP(20MG/ML) INFIL ONE (07:23)
[2020-12-11] MEDS ORDERED: PROPOFOL IV EMULSION 10 MG/ML 20 ML VIAL IV ONE ×2 (07:23→10:10)
[2020-12-11] MEDS ORDERED: MIDAZOLAM HCL 1 MG/ML 2ML VIAL ONE (07:24)
--- NOTE | 2020-12-11 08:04 | History & Physical Bridge Note ---
Date of Service December 11, 2020 History & Physical Bridge Note I have examined the patient, reviewed the History & Physical and in the interval since the performance of the History & Physical I have noted the following changes of clinical significance: no changes noted
[2020-12-11] MEDS ORDERED: ONDANSETRON INJ 2 MG/ML 2 ML VIAL IV PRN ×2 (08:26→11:21)
[2020-12-11] MEDS ORDERED: ePHEDrine sulfate 50 MG/ML AMP IV PRN (08:26)
[2020-12-11] MEDS ORDERED: HYDROmorphone INJ 1 MG/ML SYRINGE IV PRN (08:26)
[2020-12-11] MEDS ORDERED: ATROPINE SULFATE 0.1 MG/ML 10ML SYR IV PRN (08:26)
[2020-12-11] MEDS ORDERED: KETOROLAC 30 MG/ML VIAL IV PRN (08:26)
[2020-12-11] MEDS ORDERED: ORTHO JOINT ANESTHETIC ONE (08:35)
[2020-12-11] MEDS ORDERED: ONDANSETRON INJ 2 MG/ML 2 ML VIAL ONE (09:36)
--- NOTE | 2020-12-11 10:14 | Operative Report ---
PG Post Operative Report Pre & Post Diagnosis Operation Date: 12/11/20 09:20 Pre-Op Diagnosis: Posttraumatic osteoarthritis of the left knee Post-Op Diagnosis: Posttraumatic osteoarthritis of the left knee I identified the patient and participated in the time-out.: Yes Procedure Operation Date: 12/11/20 09:20 Actual Procedures p Left Total Knee Arthroplasty, Cemented(Left) - Kana Lerma DO Surgeon Kana Lerma DO Windows Software Engineer Kana Hernandez PAC Estimated Blood Loss 10 Findings Consistent with Post-Op Diagnosis Specimens Left femoral and tibial bone Complications none Disposition Disposition: Recovery Room Indications Ananya is a pleasant 65-year-old female who fractured her left tibial plateau about a year ago. She has been struggling with it ever since. She had a depression type fracture of the lateral tibial plateau. After failing a year conservative treatment, she elected to proceed with a left total knee arthroplasty. Description of Procedure Implants used: I used a Michael Persona total knee arthroplasty system with a size 7 standard femur, D tibia with a 30 mm stem, 29 patella, and a size 10 medial congruent polyethylene bearing. All components were cemented in place with Simplex HV cement. Ananya arrived [facility] for the above procedure. She was seen in the preoperative holding area and the operative extremity was identified and signed. She was given a preoperative antibiotic, TXA, a spinal anesthetic and an adductor nerve block. She was taken back to the operating room and laid on the table in supine position. She was given basic sedation. The operative knee was then prepped and draped in sterile fashion. A timeout was done, and the patient and the operative extremity was properly identified. A midline incision was made directly over the patella. Dissection was taken down to the extensor mechanism. A subvastus arthrotomy was used. The medial retinaculum was released and the fat pad was mostly excised. The knee was flexed and the ACL, PCL, and meniscus were removed. A drill was sent down the center of the femoral canal followed by an intramedullary praveen. Off that praveen a distal femoral cutting block was placed. 9 mm was resected off the distal femur at 5 of valgus. A posterior referencing AP sizing guide was then placed on the distal femur. The femur measured to be a size 7. 2 drill holes were placed in 3 of external rotation. A 4-in-1 cutting block was then impacted into place. Anterior, posterior, and chamfer cuts were then made. The proximal tibia was then exposed. An external tibial alignment guide was placed. A tibial cut guide was then anchored in place and the proximal tibia was then resected. The posterior aspect of the knee was then opened up and any additional meniscus fragments and osteophytes were removed. The tibia measured to be a size D. The tibial plate was then placed in the appropriate rotation and the tibia was drilled and punched. Trial components were then placed. I used a size 10 medial congruent polyethylene insert. The knee was brought through a full range of motion and felt to be stable. The peg holes for the femoral component were then drilled. The patella was then everted and 9 mm was resected off the posterior aspect of the patella. The patella measured to be a size 29. 3 peg holes were then drilled. A trial patella was placed. The knee was once again brought through a full range of motion and felt to be stable. Trial components were then removed. The surrounding soft tissues were injected with 100 cc of an orthopedic pain control cocktail. All components were then cemented into place with Simplex HV cement. The final polyethylene insert was then snapped into place. Once cement was dry the tourniquet was deflated. Hem ostasis was obtained. A dilute betadyne lavage was then done for 3 minutes. The joint was then irrigated with normal saline solution. The subvastus arthrotomy was then closed with #1 Vicryl suture. The skin was closed with 2-0 Vicryl, 3-0V lock suture, and chapincito. A Silverlon and a soft compressive dressing were placed. She was then transferred to a hospital bed and taken to the postanesthesia care unit in stable condition. She tolerated the procedure well. Kana Hernandez PA-C, was present for the entire procedure. He was critical for patient positioning, prepping, draping, retraction exposure, wound closure and application of sterile dressing. I attest to the content of the Intraoperative Record and any orders documented therein. Any exceptions are noted below.
[2020-12-11] MEDS ORDERED: MAGNESIUM HYDROXIDE SUSP 30 ML UDC PO PRN (11:21)
[2020-12-11] MEDS ORDERED: oxyCODONE HCL IR 5 MG TAB (IMMEDIATE RELEASE) PO PRN (11:21)
[2020-12-11] MEDS ORDERED: TRIAMCINOLONE ACET NASAL SPRAY 10.8ML BTL PRN (11:21)
[2020-12-11] MEDS ORDERED: ALBUTEROL HFA 8 GM INHALER INH PRN (11:21)
[2020-12-11] MEDS ORDERED: NALOXONE HCL 0.4 MG/1 ML VIAL/CARP IV PRN (11:21)
[2020-12-11] MEDS ORDERED: METOCLOPRAMIDE HCL INJ 5 MG/ML 2 ML VIAL IV PRN (11:21)
[2020-12-11] MEDS ORDERED: bisacodyL 10 MG SUPP PR PRN (11:21)
[2020-12-11] MEDS ORDERED: HYDROmorphone INJ 0.5 MG/0.5 ML SYR IV PRN (11:21)
--- NOTE | 2020-12-11 11:24 | XRay Report ---
XR knee LT 1 or 2V routine CLINICAL HISTORY: Surgical Post Op COMPARISON: March 2020 DISCUSSION: There are postsurgical changes of a total left knee arthroplasty and patellar resurfacing . There are overlying skin chapincito. There is gas present within the soft tissues consistent with rece nt surgery. There is a 2 cm curvilinear radiopaque/calcific density abutting the medial femoral condy le. IMPRESSION: Postsurgical changes of a total left knee arthroplasty. ACT 112: Negative or not required by law. Electronically signed by: Francisco Javier Abdul M.D. 12/11/2020 11:23 AM
--- NOTE | 2020-12-11 11:42 | Anesthesiology Progress Note ---
Date of Service December 11, 2020 Anesthesia Post Procedure Vital Signs Vital Signs: Temp Pulse Pulse Resp BP BP Pulse Ox 12/11/20 11:23 36.4 C L 69 16 122/65 97 12/11/20 11:05 66 16 123/57 L 97 12/11/20 10:55 60 16 127/56 L 96 12/11/20 10:45 65 16 122/49 L 96 12/11/20 10:37 36.7 C 78 16 100/52 L 95 12/11/20 07:48 56 L 18 169/85 H 95 12/11/20 06:51 36.7 C 62 18 165/90 H 95 Pain Intensity Left Knee: Pain Intensity: 0 Transfer of Care Handoff Completed per policy Notes Mental Status: alert / awake / arousable Patient Amnestic to Procedure: Yes Nausea / Vomiting: adequately controlled Pain: adequately controlled Airway Patency, RR, SpO2: stable & adequate BP & HR: stable & adequate Hydration State: stable & adequate Anesthetic Complications: no major complications apparent
[2020-12-11] MEDS ORDERED: ePHEDrine sulfate 50 MG/ML SYR ONE (11:51)
[2020-12-11] MEDS ORDERED: PHARMACY GLYCEMIC MGMT CONSULT SCH (12:32)
[2020-12-11] MEDS ORDERED: CARBOHYDRATES FOR HYPOGLYCEMIA PO PRN (12:45)
[2020-12-11] MEDS ORDERED: GLUCOSE 10 TABS/TUBE PO PRN (12:45)
[2020-12-11] MEDS ORDERED: DEXTROSE 50% 50 ML SYRINGE IV PRN (12:45)
[2020-12-11] MEDS ORDERED: GLUCOSE 40% GEL 15 GM TUBE PO PRN (12:45)
[2020-12-11] MEDS ORDERED: GLUCAGON FOR INJ 1 MG VIAL SQ PRN (12:45)
[2020-12-11] MEDS ORDERED: NovoLIN-N (NPH) PER UNIT CHARGE SQ ONE (12:45)
[2020-12-11] MEDS ORDERED: SODIUM CHLORIDE 0.9% 1000ML 1,000 ML IV SCH (13:00)
[2020-12-11] MEDS: INSULIN ASPART 100 UNITS/ML 3 ML PEN SC SCH ×3 (13:03→20:57)
[2020-12-11] MEDS: KETOROLAC 30 MG/ML VIAL IV SCH ×3 (13:04→23:40)
[2020-12-11] MEDS: ACETAMINOPHEN 500 MG TAB PO SCH ×2 (13:23→22:17)
--- NOTE | 2020-12-11 13:48 | Pharmacy Report ---
Pharmacy Glycemic Short Note 2 - Date of Service December 11, 2020 - Glycemic Short BSG Results (Last 24 hours): 12/11/20 12/11/20 12/11/20 07:18 10:41 12:05 POC Glucose 184 H 186 H 205 H OUTPATIENT ANTIDIABETIC REGIMEN: * Toujeo 60 units HS * Humalog 6-8 units SQ TID with meals * Metformin 1000mg PO BID ASSESSMENT: * 65 year old female s/p TKA, received dexamethasone 8 mg PO preop, blood sugar 205mg/dl * Patient took 60 units of Toujeo prior to admission last night * Give NPH to cover steroid effect, CF/CR and Lantus HS on scale based on blood sugar * ADA & AACE recommend a goal blood sugar range 140-180 mg/dl for the majority of critically ill & non-critically ill patients. However, more stringent targets may be selected in individual cases. Will utilize more stringent goal of 110-140mg/dl based on patient age & comorbidities. Additionally, tighter glycemic control is warranted to facilitate wound/infection healing. PLAN FOR INPATIENT GLYCEMIC CONTROL: * Hold outpatient oral diabetes medications * NPH 40 units (~0.4unit/kg) SQ x1 dose now * Basal insulin * Lantus SQ HS * 45 units for BSG < 110mg/dl * 60 units BSG 110-180mg/dl * 70 units BSG > 180mg/dl * Bolus insulin * NovoLog per scale ACHS or Q6hrs while NPO * Goal Range: Low 110 mg/dL - High 140 mg/dL * Correction Factor: 15 mg/dL/unit * Nutritional / Prandial insulin per carb ratio of 1 unit per 5 grams CHO consumed
[2020-12-11] MEDS: ceFAZolin 2000MG 2,000 MG/15 ML SYR IV SCH ×2 (17:20→23:41)
[2020-12-11] MEDS: ASPIRIN 81 MG ECTAB PO SCH (20:52)
[2020-12-11] MEDS: DOCUSATE SODIUM 100 MG CAP PO SCH (20:52)
[2020-12-11] MEDS: METOPROLOL TARTRATE 25 MG TAB PO SCH (20:53)
[2020-12-11] MEDS ORDERED: SENNA 8.6 MG TAB PO SCH (21:00)
[2020-12-11] MEDS ORDERED: INSULIN GLARGINE SOLOSTAR 100 UNITS/ML 3 ML PEN SC SCH (21:00)
[2020-12-11] MEDS: CHOLESTYRAMINE LIGHT 4 GM PKT PO SCH (22:18)
[2020-12-12] MEDS: INSULIN ASPART 100 UNITS/ML 3 ML PEN SC SCH ×4 (01:16→12:22)
[2020-12-12] MEDS: ACETAMINOPHEN 500 MG TAB PO SCH (06:18)
[2020-12-12] MEDS: KETOROLAC 30 MG/ML VIAL IV SCH ×2 (06:19→12:24)
[2020-12-12] MEDS ORDERED: LEVOTHYROXINE SODIUM 175 MCG TABLET PO SCH (06:30)
--- NOTE | 2020-12-12 07:08 | Orthopedic Progress Note ---
Date of Service December 12, 2020 Assessment & Plan (1) Status post left knee replacement: Overall she is doing very well. She is having less pain in her back and her hip as well. She is very optimistic about her outcome. She will be seen by therapy today for ambulation and range of motion exercises. The dressing can be changed after physical therapy. She can be discharged home later today. She will follow-up with orthopedics in 2 weeks. 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 Overall she is doing very well. She is having much pain in the left knee. She is very happy with her progress to this point. She has no complaints.. Review of Systems All systems reviewed & are unremarkable except as noted in HPI & below. Physical Exam On physical examination of the left knee, the dressing is clean and dry. She has active dorsiflexion plantarflexion of her left ankle. Sensation is intact throughout.. Results & Data Results & Data Laboratory Results . Diagnostic Findings Postoperative x-rays of the left knee show the prosthesis to be in anatomic alignment without any evidence of fracture, location, or loosening. There appears to be a small amount of cement in the lateral gutter.. PG Care Time/CCT Total # of Minutes Spent Total Time Spent with Patient: Total time spent is greater than 50% in coordination of care (as documented) at patient's floor/unit and/or counseling patient: Coding Level of Care Code 68920 Post Operative Follow-Up Diagnoses Status post left knee replacement Z96.652
--- NOTE | 2020-12-12 07:09 | Discharge Summary ---
Date of Service December 12, 2020 Admission HPI (Per Admitting) Ananya is a pleasant 65-year-old female who fell over a year ago. She sustained a tibial plateau fracture of her left knee. Unfortunate she has had a rough recovery with it. She has been mostly in a wheelchair. She continues to struggle with her left knee. She there is a lot she cannot do. MRI has shown depression of the lateral tibial plateau. After failing extensive conservative treatment, she has elected proceed with a left total knee arthroplasty. . Admission Exam (Per Admitting) On physical examination of the left knee, she is wearing a knee brace. All of her pain is located medially and laterally in the posterior tibial plateau. She has range of motion of 0 to 120 degrees. She has some instability around the posterior lateral corner. . Principal Diagnosis Same as "Discharge Diagnosis" noted below under Discharge Instructions. Discharge Exam On physical examination of the left knee, the dressing is clean and dry. She has active dorsiflexion plantarflexion of her left ankle. Sensation is intact throughout.. Discharge Data Procedures Performed Operation Date: 12/11/20 09:20 Actual Procedures p Left Total Knee Arthroplasty, Cemented(Left) - Kana Lerma DO Ordered Studies 12/11/20 05:00 US - OR guided needle placemen Routine Hospital Course (1) Status post left knee replacement: On December 11, [address] [facility] and underwent a left knee replaced without complication. She had a spinal anesthetic. Postoperatively she was started on aspirin for DVT prophylaxis and transferred to the general orthopedic floors. Her hospital course was uneventful. On postop day #1 her vital signs were stable and her pain was well controlled. She was able to participate well with physical therapy doing ambulation and range of motion exercises. She was then discharged home. She will follow-up with orthopedics in 2 weeks. PG Care Time/CCT Total # of Minutes Spent Total Time Spent with Patient: Total time spent is greater than 50% in coordination of care (as documented) at patient's floor/unit and/or counseling patient: Discharge Plan Discharge Items Patient Disposition: Home - Home Health Services Reason For Visit: DJD Left Knee Discharge Diagnosis: Left knee replacement Activity: As commented below Non-emergency contact: Surgeon Call non-emergency contact if: your wound has increased redness and your wound has increased drainage Follow-up/Referrals: Usman Heredia [Primary Care Provider] - Diet: Carb Consistent or DM2 Addtl Attending Provider Instructions: Activity and Therapy Recommendations: * If you are using [facility] then therapy will be provided at your home until they feel you have accomplished all of your goals. * If you are using [facility] then Physical Therapy will be provided until they feel you are ready to start Outpatient Physical Therapy. * If you are not using home therapy then Outpatient Physical Therapy should start about 3-5 days from your day of surgery. Therapy will last about 6-10 weeks * It is important not to put a pillow under your knee when you are relaxing or sleeping. It is just as important to make sure you are getting your knee perfectly straight as it is to regain your knee bend. * You were shown a series of exercises in the hospital. Do these exercises three times each day including the exercises you were shown in physical therapy. * Get up and walk several times each day. For the first four weeks, try not to stand or walk for more than one hour at a time. If you do stand or walk for more than one hour, you will not hurt anything, but your leg will likely swell. * As you feel comfortable, you may change from the walker or crutches to a cane and then to independent walking. Medications: * Narcotic You will likely be sent home from the hospital with a prescription for the narcotic pain medication that worked best throughout your stay. * Aspirin Most patients will be required to take Aspirin 81mg twice a day for 6 weeks after surgery. This is obtained fers-hri-naadmik and a prescription is not necessary. * Other medications may be prescribed for specific circumstances. If you have any questions, please call the office at . * Resume previous home medications unless otherwise instructed TEDs/Elastic Stockings: The white elastic stockings help limit swelling and prevent blood clots from forming in your legs.~ The more you wear them, the more they work. Wear them for six weeks. Dressing Care: You may change the dressing after physical therapy on day 1. Then do daily dry dressing changes as needed. If the incision is not draining then you may leave the chapincito open to air. If there is a little bit of drainage or if the chapincito are getting stuck on your clothing then cover the incision with a dry dressing. The chapincito will be removed at your 2 week follow-up appointment. Showering: You may shower 5 days after the day of surgery. You may shower with the chapincito exposed. Let soapy water run over the chapincito and pat them dry. Do not scrub or soak the incision. Things To Watch For: * Drainage from the incision site that occurs more than one week after your surgery. * Increased redness at the incision site. * Fever above 102 degrees Fahrenheit. * Unusual chest pain or shortness of breath. * Call [facility] at with any of the above problems Follow-Up Visit: Follow-up with Dr. Lerma's PA (Kana Hernandez) 2-3 weeks after your day of surgery. He will remove your chapincito and answer any questions. If you have any additional questions or concerns, Dr Lerma is usually in the office at the same time and will be available An appointment was probably scheduled when you signed-up for surgery in the office. If you have any questions call Office Instructions: More detailed instructions as well as Frequently Asked Questions were provided in a folder by our office when you signed-up for surgery. Please review these instructions when you get home. If you have any further questions or concerns, please feel free to call the office at [phone] Pending Studies at Discharge: No Stand-Alone Forms: [facility], Smoking Cessation Medications and DC Order Prescriptions: New oxycodone 5 mg Tablet 5 mg PO Q4H PRN (Reason: pain) Qty: 60 RF: 0 Continued Myrbetriq 50 mg tablet extended release 24 hr 50 mg PO QAM RF: 0 furosemide 40 mg Tablet 40 mg PO QAM RF: 0 atorvastatin 40 mg Tablet 40 mg PO QAM RF: 0 metformin 500 mg Tablet 1,000 mg PO BID RF: 0 levothyroxine 175 mcg Tablet 175 mcg PO QAM RF: 0 ferrous sulfate [iron] 325 mg (65 mg iron) Tablet 325 mg PO QAM RF: 0 esomeprazole magnesium [Nexium] 40 mg Capsule,Delayed Release(Dr/Ec) 40 mg PO QAM RF: 0 triamcinolone acetonide [Nasacort] 55 mcg Aerosol,[place] 1 spray INTRANASAL DAILY PRN (Reason: Sinus Symptoms) RF: 0 albuterol sulfate [Ventolin HFA] 90 mcg/actuation Hfa Aerosol Inhaler 2 puff INHALATION QID PRN (Reason: Shortness Of Breath) RF: 0 lisinopril 40 mg Tablet 40 mg PO QAM RF: 0 insulin lispro [Humalog KwikPen Insulin] 100 unit/mL Insulin Pen 6 - 8 unit SUBCUT TIDM RF: 0 metoprolol tartrate 25 mg Tablet 37.5 mg PO BID RF: 0 Cholestyramine Light 4 gram Powder 4 g PO BID RF: 0 Caltrate 600 plus D 600 mg (1,500 mg)-800 unit Tablet,Chewable 2 tab PO BID RF: 0 Toujeo SoloStar U-300 Insulin 300 unit/mL (1.5 mL) Insulin Pen 60 unit SUBCUT HS RF: 0 psyllium husk [Metamucil] 0.52 gram Capsule 0.52 g PO BID RF: 0 Changed aspirin 81 mg Tablet,Delayed Release (Dr/Ec) 81 mg PO BID 42 Days Qty: 0 RF: 0 Discharge Orders: Discharge Order (Routine); Ordered 12/12/20 Ordered By: Kana Lerma Admission Data Admit Date/Time: 12/11/20 10:40 Attending Provider: Kana Lerma Admit Provider: Kana Lerma Primary Care Provider: Usman Heredia
[2020-12-12] MEDS: ASPIRIN 81 MG ECTAB PO SCH (08:23)
[2020-12-12] MEDS: METOPROLOL TARTRATE 25 MG TAB PO SCH (08:25)
[2020-12-12] MEDS: DOCUSATE SODIUM 100 MG CAP PO SCH (08:27)
[2020-12-12] MEDS ORDERED: MIRABEGRON ER 25 MG TAB PO SCH (09:00)
[2020-12-12] MEDS ORDERED: MULTIVITAMIN TAB PO SCH (09:00)
[2020-12-12] MEDS ORDERED: FUROSEMIDE 40 MG TAB PO SCH (09:00)
[2020-12-12] MEDS ORDERED: lisinopril 40 MG TAB PO SCH (09:00)
[2020-12-12] MEDS ORDERED: ATORVASTATIN 40 MG TAB PO SCH (09:00)
[2020-12-12] MEDS: CHOLESTYRAMINE LIGHT 4 GM PKT PO SCH (12:22)
== END 2020-12-12 13:29 | disposition home health service (06) ==
LOC: 3E 06:25 → ASU 06:25

== ENCOUNTER 2024-10-21 09:57 | Inpatient (IN) ==
--- NOTE | 2024-03-03 21:59 | PAT Medication Instructions ---
Medication Instructions Date of Service March 03, 2024 Home Medications Medication Instructions Recorded aspirin 81 mg tablet,delayed 81 mg PO BID 42 days #0 tabs 12/12/20 release albuterol sulfate 90 mcg/actuation aerosol inhaler (Ventolin HFA) 2 puff inhalation QID PRN Shortness Of Breath atorvastatin 40 mg tablet (Lipitor) 40 mg PO QAM calcium carbonate 600 mg-vitamin D3 20 mcg (800 unit) chewable tablet (Caltrate 600 plus D) 1 tab PO BID cholestyramine-aspartame 4 gram oral powder (Cholestyramine Light) 4 g PO QAM esomeprazole magnesium 40 mg capsule,delayed release (Nexium) 40 mg PO QAM ferrous sulfate 325 mg (65 mg iron) tablet (iron) 325 mg PO QAM furosemide 40 mg tablet 40 mg PO QAM insulin glargine U-300 conc 300 unit/mL (1.5 mL) subcutaneous pen (Toujeo SoloStar U-300 Insulin) 60 unit subcut HS insulin lispro 100 unit/mL subcutaneous pen (Humalog KwikPen (U-100) Insulin) 6 - 8 unit subcut TIDM levothyroxine 175 mcg tablet 200 mcg PO QAM lisinopril 40 mg tablet 40 mg PO QAM metoprolol tartrate 25 mg tablet 37.5 mg PO BID triamcinolone acetonide 55 mcg nasal spray aerosol (Nasacort) 1 spray intranasal DAILY PRN Sinus Symptoms mirabegron 50 mg tablet,extended release 24 hr (Myrbetriq) 50 mg PO QAM psyllium husk 0.52 gram capsule (Metamucil) 0.52 g PO BID aspirin 81 mg tablet,delayed release 81 mg PO BID cholecalciferol (vitamin D3) 50 mcg (2,000 unit) capsule (Vitamin D3) 50 mcg PO BID magnesium oxide 600 mg PO BID tirzepatide 7.5 mg/0.5 mL subcutaneous pen injector (Mounjaro) 2.5 mg subcut WK cefuroxime axetil 500 mg tablet 500 mg PO BID doxycycline hyclate 100 mg tablet 100 mg PO QAM Continue as directed cefuroxime axetil 500 mg tablet 500 mg PO BID doxycycline hyclate 100 mg tablet 100 mg PO QAM ASK your prescriber and surgeon aspirin 81 mg tablet,delayed release 81 mg PO BID STOP 7 days prior to surgery tirzepatide 7.5 mg/0.5 mL subcutaneous pen injector (Mounjaro) 2.5 mg subcut WK STOP taking 24 hours before surgery cholestyramine-aspartame 4 gram oral powder (Cholestyramine Light) 4 g PO QAM DO NOT take the morning of surgery calcium carbonate 600 mg-vitamin D3 20 mcg (800 unit) chewable tablet (Caltrate 600 plus D) 1 tab PO BID ferrous sulfate 325 mg (65 mg iron) tablet (iron) 325 mg PO QAM furosemide 40 mg tablet 40 mg PO QAM insulin lispro 100 unit/mL subcutaneous pen (Humalog KwikPen (U-100) Insulin) 6 - 8 unit subcut TIDM lisinopril 40 mg tablet 40 mg PO QAM mirabegron 50 mg tablet,extended release 24 hr (Myrbetriq) 50 mg PO QAM psyllium husk 0.52 gram capsule (Metamucil) 0.52 g PO BID cholecalciferol (vitamin D3) 50 mcg (2,000 unit) capsule (Vitamin D3) 50 mcg PO BID magnesium oxide 600 mg PO BID doxycycline hyclate 100 mg tablet 100 mg PO QAM Take morning of surgery With a small sip of water, OTHERWISE NOTHING TO EAT OR DRINK AFTER MIDNIGHT: albuterol sulfate 90 mcg/actuation aerosol inhaler (Ventolin HFA) 2 puff inhalation QID PRN Shortness Of Breath (use if needed; please bring rescue inhaler with you to hospital day of surgery if possible) atorvastatin 40 mg tablet (Lipitor) 40 mg PO QAM esomeprazole magnesium 40 mg capsule,delayed release (Nexium) 40 mg PO QAM levothyroxine 175 mcg tablet 200 mcg PO QAM metoprolol tartrate 25 mg tablet 37.5 mg PO BID triamcinolone acetonide 55 mcg nasal spray aerosol (Nasacort) 1 spray intranasal DAILY PRN Sinus Symptoms (if needed) Take evening before surgery albuterol sulfate 90 mcg/actuation aerosol inhaler (Ventolin HFA) 2 puff inhalation QID PRN Shortness Of Breath (if needed) calcium carbonate 600 mg-vitamin D3 20 mcg (800 unit) chewable tablet (Caltrate 600 plus D) 1 tab PO BID insulin lispro 100 unit/mL subcutaneous pen (Humalog KwikPen (U-100) Insulin) 6 - 8 unit subcut TIDM metoprolol tartrate 25 mg tablet 37.5 mg PO BID triamcinolone acetonide 55 mcg nasal spray aerosol (Nasacort) 1 spray intranasal DAILY PRN Sinus Symptoms (if needed) psyllium husk 0.52 gram capsule (Metamucil) 0.52 g PO BID cholecalciferol (vitamin D3) 50 mcg (2,000 unit) capsule (Vitamin D3) 50 mcg PO BID magnesium oxide 600 mg PO BID Insulin Dependent Diabetic Patients * Test your blood sugar the morning of surgery * If Blood Sugar is GREATER THAN 150, take HALF of your regular dose of: insulin glargine U-300 conc 300 unit/mL (1.5 mL) subcutaneous pen (Toujeo SoloStar U- 300 Insulin) * If Blood Sugar is LESS THAN 150, DO NOT TAKE ANY: insulin glargine U-300 conc 300 unit/mL (1.5 mL) subcutaneous pen (Toujeo SoloStar U-300 Insulin) Other Notes If you have any questions please call us at [phone] or [phone] or [phone] or [phone]
--- NOTE | 2024-03-11 10:13 | Anesthesiology Consultation ---
Date of Service March 11, 2024 Assessment & Plan (1) Encounter for pre-operative examination: - Check BSG AM DOS - Infectious disease screening: Per assessment on 03/11/24: No known recent infectious disease contacts or current infectious disease symptoms. Patient was Covid positive 02/08/24. Symptoms at time of cough, congestion, chills, aches. Patient states at PAT visit 03/11/24 that patient has had resolution in previous Covid-related symptoms and currently at baseline. DOS 04/15/24. Pt can proceed as scheduled without additional preop Covid testing or additional Covid contact precautions per protocol. Chart Review Chart Review: Acceptable Risk for Surgery and Patient seen in Pre Admission Testing Teaching & Discussion Pre-Anesthesia Teaching/Discussion Notes: Instructed NPO after midnight before surgery,except medications with 15 cc of water. Medication instructions provided according to the [facility] guidelines. History Surgery Operation Date: 04/15/24 10:15 Proposed Procedures p Complete vs Partial Revision Left Total Knee Arthroplasty - Kana Lerma, Height/Weight Height: 5 ft 5 in Weight: 102.7 kg Allergies Allergy/AdvReac Type Severity Reaction Status Date / Time No Known Allergies Allergy Verified 02/29/24 11:49 Medications Home Medications Medication Instructions Recorded Confirmed Last Taken albuterol sulfate 90 mcg/actuation 2 puff inhalation QID PRN 01/03/19 02/29/24 12/10/20 10:00 aerosol inhaler (Ventolin HFA) Shortness Of Breath atorvastatin 40 mg tablet (Lipitor) 40 mg PO QAM 01/03/19 02/29/24 03/15/22 05:45 calcium carbonate 600 mg-vitamin 1 tab PO BID 01/03/19 02/29/24 03/14/22 08:00 D3 20 mcg (800 unit) chewable tablet (Caltrate 600 plus D) cholestyramine-aspartame 4 gram 4 g PO QAM 01/03/19 02/29/24 03/14/22 08:00 oral powder (Cholestyramine Light) esomeprazole magnesium 40 mg 40 mg PO QAM 01/03/19 02/29/24 03/15/22 05:45 capsule,delayed release (Nexium) ferrous sulfate 325 mg (65 mg 325 mg PO QAM 01/03/19 02/29/24 03/14/22 08:00 iron) tablet (iron) furosemide 40 mg tablet 40 mg PO QAM 01/03/19 02/29/24 03/14/22 08:00 insulin glargine U-300 conc 300 60 unit subcut HS 01/03/19 02/29/24 03/14/22 21:00 unit/mL (1.5 mL) subcutaneous pen 30 units (Toujeo SoloStar U-300 Insulin) insulin lispro 100 unit/mL 6 - 8 unit subcut TIDM 01/03/19 02/29/24 03/14/22 12:00 subcutaneous pen (Humalog KwikPen 6 units (U-100) Insulin) levothyroxine 175 mcg tablet 200 mcg PO QAM 01/03/19 02/29/24 03/15/22 05:30 lisinopril 40 mg tablet 40 mg PO QAM 01/03/19 02/29/24 03/14/22 08:00 metoprolol tartrate 25 mg tablet 37.5 mg PO BID 01/03/19 02/29/24 03/15/22 05:45 triamcinolone acetonide 55 mcg 1 spray intranasal DAILY PRN Sinus 01/03/19 02/29/24 03/15/22 05:45 nasal spray aerosol (Nasacort) Symptoms mirabegron 50 mg tablet,extended 50 mg PO QAM 04/01/20 02/29/24 03/14/22 08:00 release 24 hr (Myrbetriq) psyllium husk 0.52 gram capsule 0.52 g PO BID 11/19/20 02/29/24 03/14/22 08:00 (Metamucil) aspirin 81 mg tablet,delayed 81 mg PO BID 42 days #0 tabs 12/12/20 02/29/24 03/15/22 05:45 release cholecalciferol (vitamin D3) 50 50 mcg PO BID 01/21/22 02/29/24 03/14/22 08:00 mcg (2,000 unit) capsule (Vitamin D3) magnesium oxide 600 mg PO BID 01/21/22 02/29/24 03/14/22 08:00 tirzepatide 7.5 mg/0.5 mL 2.5 mg subcut WK 08/15/23 02/29/24 Unknown subcutaneous pen injector (Harsha) Past Medical History Medical History Depression Diabetes GERD (gastroesophageal reflux disease) Hearing deficit Right hearing aid History of COVID-19 02/08/24- cough, congestion,chills, aches > resolved 01/2022- cough, fever, fatigue, "mild" HTN (hypertension) Hyperlipidemia Hypothyroidism Migraine Hx Obesity Overactive bladder Painful orthopaedic hardware Seasonal allergies Reason for Ventolin per pt Exercise / Class Metabolic Activity III < 4 Walking/Shop/Light housework Past Family History Family History Mother Diabetes Sister Diabetes Brother Diabetes Past Surgical History Surgical History History of cardiac cath 2011, 2014- no stents History of cholecystectomy History of colonoscopy History of esophagogastroduodenoscopy (EGD) History of hysterectomy KWASI BSO History of laparoscopy Multiple History of lumpectomy Right > benign History of repair of right rotator cuff Right shoulder arthroscopy (01/31/19): [place]MA#5 [place] [facility] [place] of reverse total replacement of right shoulder joint Right reverse TSA (03/15/22): Glidescope# 3.0, ETT 7.0, atraumatic + regional at [facility] History of tooth extraction History of total knee replacement Left Hx of repair of right rotator cuff Nausea and vomiting after administration of anesthetic agent Past Anesthesia History No Hx of Anesthesia Complications and No Family Hx of Anesthesia Complications History of PONV No Hx of Motion Sickness and History of PONV Social History Smoking Status: Former smoker tobacco type: cigarettes Do You Dip or Chew Tobacco: No Smoking End Date: quit 20+ yrs ago Hx Alcohol Use: Yes Alcohol type: beer and wine alcohol intake frequency: holidays/special occasions only Hx Substance Use: No substance use type: does not use Review of Systems Patient denies chest pain, shortness of breath, dyspnea on exertion, fever, chills, cough, wheezing, palpitations. Physical Exam Vital Signs BP 142/82 P 58 TEMP 97.9 SP02 95%RA RESP 18 Physical Mildly decreased cervical extension range of motion. Full TMJ range of motion. TMD 3 finger breaths Mallampati Score III Dentition: missing molars Lungs: clear throughout to auscultation Cardiac: regular rate and rhythm, no murmurs noted Spine: normal Carotid arteries: negative bruit Extremities: no LE edema Lab Results Anesthesia Preop Results Results Anesthesia Widget: WBC 7.56 K/ul (4.8-10.8) 03/11/24 Hgb 14.3 g/dl (12.0-16.0) 03/11/24 Hct 43.9 % (37.0-47.0) 03/11/24 Plt 387 K/uL (130-400) 03/11/24 Na 140 mmol/L (136-145) 03/11/24 K 3.8 mmol/L (3.5-5.1) 03/11/24 Cl 103 mmol/L (98-107) 03/11/24 CO2 32 mmol/L (21-32) 03/11/24 BUN 15 mg/dl (6-23) 03/11/24 Creat 0.66 mg/dl (0.6-1.2) 03/11/24 Glucose Level 75 mg/dl (70-99(Fasting)) 03/11/24 PT 10.2 Seconds (9.0-12.0) 03/11/24 PTT 24 Seconds (21-31) 03/11/24 INR 0.9 (0.9-1.1) 03/11/24 HA1c 9.3 % (4.5-5.6) H 03/11/24 Blood Type B Positive 03/11/24 Antibody Screen NEGATIVE 03/11/24 Testing Laboratory Results Surgeon's office made aware of elevated A1C* Electrocardiogram Date: 03/11/24 SB at 59bpm. "Otherwise normal ECG" No significant change compared to 03/03/2022 per cooking teacher comparison. Chest X-Ray Date: 03/11/24 FINDINGS: PA and lateral chest radiographs are compared to study dated 03/03/2022. The cardiomediastinal silhouette is top normal for projection noting atherosclerotic calcification of the thoracic aorta. The lungs and pleural spaces are clear. There is no pneumothorax. The bony thorax appears intact. A right shoulder arthroplasty is in place. Arthritic change is seen in the left shoulder and thoracic spine. Cholecystectomy clips are noted in the right upper quadrant. IMPRESSION: No active disease in the chest.
--- NOTE | 2024-10-02 14:12 | Anesthesiology Consultation ---
Date of Service October 02, 2024 Assessment & Plan (1) Encounter for pre-operative examination: - will send optimization form to be faxed to PCP with PAT testing as patient reports appointment 10/08/24, Dr. Usman Heredia [facility]. Patient made aware at PAT visit. - check BSG am DOS. - tirzepatide instructions: Patient informed at PAT visit to stop 7 days prior to surgery-voiced understanding. Patient advised to check with prescriber to see if alternative diabetic management changes recommended while holding tirzepatide- if so, patient to call back to PAT to update chart and discuss if any further preop medication instructions needed. Chart Review Chart Review: Pending: Refer to Additional Notes / Consult section and Patient seen in Pre Admission Testing Teaching & Discussion Pre-Anesthesia Teaching/Discussion Notes: Instructed NPO after midnight before surgery, except medications with 15 cc of water. Medication instructions provided according to the PAT guidelines. History Surgery Operation Date: 04/15/24 10:15 Proposed Procedures p Complete vs Partial Revision Left Total Knee Arthroplasty - Kana Lerma DO Operation Date: 10/21/24 11:00 Proposed Procedures p Complete versus Partial Revision Left Total Knee Arthroplasty - Kana Lerma DO Height/Weight Height: 5 ft 5 in Weight: 99 kg Allergies Allergy/AdvReac Type Severity Reaction Status Date / Time No Known Allergies Allergy Verified 09/23/24 09:00 Medications Home Medications Medication Instructions Recorded Confirmed Last Taken albuterol sulfate 90 mcg/actuation 2 puff inhalation QID PRN 01/03/19 09/23/24 12/10/20 10:00 aerosol inhaler (Ventolin HFA) Shortness Of Breath atorvastatin 40 mg tablet (Lipitor) 40 mg PO QAM 01/03/19 09/23/24 09/05/24 calcium 600 mg (as carbonate)-vit 1 tab PO BID 01/03/19 09/23/24 09/05/24 D3 20 mcg (800 unit) chewable tablet (Caltrate plus D) esomeprazole magnesium 40 mg 40 mg PO QAM 01/03/19 09/23/24 09/05/24 capsule,delayed release (Nexium) ferrous sulfate 325 mg (65 mg 325 mg PO QAM 01/03/19 09/23/24 09/05/24 iron) tablet (iron) furosemide 40 mg tablet 40 mg PO QAM 01/03/19 09/23/24 09/05/24 insulin glargine U-300 conc 300 60 unit subcut HS 01/03/19 09/23/24 09/04/24 unit/mL (1.5 mL) subcutaneous pen (Toujeo SoloStar U-300 Insulin) insulin lispro 100 unit/mL 6 - 8 unit subcut UD 01/03/19 09/23/24 03/14/22 12:00 subcutaneous pen (Humalog KwikPen 6 units (U-100) Insulin) lisinopril 40 mg tablet 40 mg PO QAM 01/03/19 09/23/24 09/05/24 metoprolol tartrate 25 mg tablet 37.5 mg PO BID 01/03/19 09/23/24 09/05/24 mirabegron 50 mg tablet,extended 50 mg PO QAM 04/01/20 09/23/24 09/05/24 release 24 hr (Myrbetriq) aspirin 81 mg tablet,delayed 81 mg PO BID 42 days #0 tabs 12/12/20 09/23/24 09/05/24 release cholecalciferol (vitamin D3) 50 50 mcg PO BID 01/21/22 09/23/24 09/05/24 mcg (2,000 unit) capsule (Vitamin D3) magnesium oxide 600 mg PO BID 01/21/22 09/23/24 09/05/24 tirzepatide 7.5 mg/0.5 mL 7.5 mg subcut WK 08/15/23 09/23/24 08/31/24 subcutaneous pen injector (Harsha) colestipol 1 gram tablet 1 g PO QID PRN Other 09/05/24 09/23/24 09/05/24 levothyroxine 200 mcg tablet 175 mcg PO QAM 09/05/24 10/02/24 09/05/24 psyllium husk 0.52 gram capsule 0.52 g PO BID 09/05/24 09/23/24 09/05/24 tramadol 50 mg tablet 50 mg PO Q8H PRN pain #30 tabs 09/11/24 09/23/24 Unknown Past Medical History Medical History (Updated 10/02/24 @ 14:31 by Selene Oliver PA-C) Depression no meds Diabetes IDDM GERD (gastroesophageal reflux disease) controlled, stable per pt Hearing deficit Right hearing aid History of COVID-19 (~01/2024) 02/08/24- cough, congestion,chills, aches > resolved 01/2022- cough, fever, fatigue, "mild" HTN (hypertension) controlled, stable per pt Hx of Clostridium difficile infection (~2015) 2016 > treated and resolved Hyperlipidemia Hypothyroidism Migraine Hx Obesity Overactive bladder Painful orthopaedic hardware Seasonal allergies Reason for Ventolin per pt Patient denies h/o stroke, seizures, heart attack, heart failure, blood clots/DVTs or blood transfusions. Exercise / Class Metabolic Activity II 4-5 Yardwork/Stairs/Walk up hill (denies chest discomfort or shortness of breath with one flight of stairs) Past Family History Family History Mother Diabetes Sister Diabetes Brother Diabetes Past Surgical History Surgical History (Updated 10/02/24 @ 14:32 by Selene Oliver PA-C) History of cardiac cath 2011, 2014- no stents History of cholecystectomy History of colonoscopy History of esophagogastroduodenoscopy (EGD) History of hysterectomy KWASI BSO History of laparoscopy Multiple History of lumpectomy Right breast > benign History of repair of right rotator cuff Right shoulder arthroscopy (01/31/19): LMA#5 + PNB at [facility] [place] History of reverse total replacement of right shoulder joint Right reverse TSA (03/15/22): Glidescope# 3.0, ETT 7.0, atraumatic + regional at [facility] History of tooth extraction History of total knee replacement Left Nausea and vomiting after administration of anesthetic agent Past Anesthesia History No Hx of Anesthesia Complications and No Family Hx of Anesthesia Complications History of PONV No Hx of Motion Sickness and History of PONV (denies needing scop patch) Social History Smoking Status: Never smoker tobacco type: cigarettes Do You Dip or Chew Tobacco: No Smoking End Date: 20 yrs ago Hx Alcohol Use: Yes Alcohol type: beer alcohol intake frequency: holidays/special occasions only Hx Substance Use: No substance use type: does not use Review of Systems Patient denies chest pain, shortness of breath, dyspnea on exertion, snoring, witnessed apneas, fever, chills, cough, wheezing, or palpitations. Physical Exam Vital Signs Vitals BP 102/55 P 66 TEMP 98.3 SP02 95% on RA RESP 18 Physical Patient resting comfortably in chair in no acute distress, alert and oriented, responding appropriately throughout visit Full cervical extension range of motion without pain TMD 3.5 finger breadths Mallampati Score 2 Dentition: intact, denies chipped or loose teeth, caps/crowns, implants or bridges Lungs: normal respiratory effort. Good air movement, clear throughout to auscultation, no adventitious breath sounds Cardiac: regular rate and rhythm, no murmurs noted Carotid arteries: negative bruit bilat Lab Results Anesthesia Preop Results Results Anesthesia Widget: WBC 6.48 K/ul (4.8-10.8) 10/02/24 Hgb 14.6 g/dl (12.0-16.0) 10/02/24 Hct 43.4 % (37.0-47.0) 10/02/24 Plt 324 K/uL (130-400) 10/02/24 Na 140 mmol/L (136-145) 10/02/24 K 4.3 mmol/L (3.5-5.1) 10/02/24 Cl 103 mmol/L (98-107) 10/02/24 CO2 32 mmol/L (21-32) 10/02/24 BUN 14 mg/dl (6-23) 10/02/24 Creat 0.83 mg/dl (0.6-1.2) 10/02/24 Glucose Level 142 mg/dl (70-99(Fasting)) H 10/02/24 PT 10.3 Seconds (9.0-12.0) 10/02/24 PTT 25 Seconds (21-31) 10/02/24 INR 0.9 (0.9-1.1) 10/02/24 HA1c 6.7 % (4.5-5.6) H 10/02/24 Blood Type B Positive 10/02/24 Antibody Screen NEGATIVE 10/02/24 Testing Electrocardiogram Date: 03/11/24 Sinus bradycardia, rate 59 bpm Chest X-Ray Date: 03/11/24 No active disease in the chest. Other Testing Lumbar spine MRI 01/03/24 1. Degenerative disc disease as above, greatest at L5-S1. See discussion for detailed level by level analysis. 2. There is no significant central canal stenosis. 3. No destructive bony process is seen.
[~2024-10-21 09:57] MED LIST changes: -ACETAMINOPHEN 500 MG TAB PO SCH; +BUPIVACAINE 0.25% PF 30 ML VIAL ONE; +BUPIVACAINE 0.5 % 5 MG/1 ML PF 10ML VIAL ONE; +DEXAMETHASONE SOD INJ 4 MG/ML VIAL ONE; +EPINEPHrine INJ 1 MG/ML AMP ONE; -FAMOTIDINE 20 MG TAB PO SCH; -GABAPENTIN 600 MG DOSE PO SCH; -LR 500ML BOLUS, THEN 15ML/HR IV SCH; -LR 60ML/HR IV SCH; -ROPIVACAINE 0.5% HCL/PF 150 MG, BUPIVACAINE 0.75% MPF 20 ML, EPINEPHrine 30MG/30ML (OR ... INSTIL SCH; -TRANEXAMIC ACID 1,000 MG **IV Intra-op IV SCH; -TRANEXAMIC ACID 1,000 MG **IV Pre-op IV SCH; -ceFAZolin 2000MG 2,000 MG/15 ML SYR IV SCH; -dexAMETHasone 4 MG TAB PO SCH
[2024-10-21] MEDS: LR 500ML BOLUS, THEN 15ML/HR IV SCH (10:41)
[2024-10-21] MEDS: ACETAMINOPHEN 500 MG TAB PO SCH (10:41)
[2024-10-21] MEDS: dexAMETHasone**PF** 10 MG/ML VIAL IV SCH (10:42)
[2024-10-21] MEDS: LR 60ML/HR IV SCH (10:42)
[2024-10-21] MEDS: FAMOTIDINE 20 MG TAB PO SCH (10:42)
[2024-10-21] MEDS: GABAPENTIN 300 MG CAP PO SCH (10:42)
[2024-10-21] MEDS ORDERED: LIDOCAINE 2% 2 ML VIAL/AMP(20MG/ML) INFIL ONE (11:01)
[2024-10-21] MEDS ORDERED: ONDANSETRON INJ 2 MG/ML 2 ML VIAL ONE (11:01)
[2024-10-21] MEDS ORDERED: PROPOFOL IV EMULSION 10 MG/ML 20 ML VIAL IV ONE (11:01)
[2024-10-21] MEDS ORDERED: MIDAZOLAM HCL 1 MG/ML 2ML VIAL ONE ×2 (11:02)
[2024-10-21] MEDS ORDERED: ATROPINE SULFATE 0.1 MG/ML 10ML SYR IV PRN (11:54)
[2024-10-21] MEDS ORDERED: ONDANSETRON INJ 2 MG/ML 2 ML VIAL IV PRN (11:54)
[2024-10-21] MEDS ORDERED: fentaNYL citrate PF 100 MCG/2 ML VIAL IV PRN (11:54)
[2024-10-21] MEDS ORDERED: ePHEDrine sulfate 50 MG/ML AMP IV PRN (11:54)
[2024-10-21] MEDS ORDERED: PROMETHAZINE HCL 6.25 MG in SODIUM CHLORIDE 0.9% 50 ML IV PRN (11:54)
--- NOTE | 2024-10-21 12:10 | History & Physical Bridge Note ---
Date of Service October 21, 2024 History & Physical Bridge Note I have examined the patient, reviewed the History & Physical and in the interval since the performance of the History & Physical I have noted the following changes of clinical significance: no changes noted
[2024-10-21] MEDS: TRANEXAMIC ACID 1,000 MG **IV Pre-op IV SCH (13:05)
[2024-10-21] MEDS: ceFAZolin 2000MG 2,000 MG/15 ML SYR IV SCH (13:19)
[2024-10-21] MEDS: ORTHO JOINT ANESTHETIC ONE (13:45)
[2024-10-21] MEDS ORDERED: ePHEDrine sulfate 50 MG/5 ML SYR ONE (13:49)
[2024-10-21] MEDS: ROPIV 0.5% 246mg, Ketorolac 30mg, EPINEPHrine 0.5mg in NSS INFIL SCH (14:03)
[2024-10-21] MEDS: TRANEXAMIC ACID 1,000 MG **IV Intra-op IV SCH (14:10)
--- NOTE | 2024-10-21 15:06 | Anesthesiology Progress Note ---
Date of Service October 21, 2024 Anesthesia Post Procedure Vital Signs Vital Signs: Temp Pulse Resp BP Pulse Ox O2 Del Method O2 Flow Rate 10/21/24 14:55 71 23 118/59 L 91 Room Air 10/21/24 14:45 64 16 112/52 L 95 Oxymask 6 10/21/24 14:37 36.9 C 67 19 113/69 91 Oxymask 4 10/21/24 10:19 36.4 C L 62 20 175/79 H 98 Room Air Pain Intensity Left Knee: Pain Intensity: 7 Transfer of Care Handoff Completed per policy Notes Mental Status: alert / awake / arousable Patient Amnestic to Procedure: Yes Nausea / Vomiting: adequately controlled Pain: adequately controlled Airway Patency, RR, SpO2: stable & adequate BP & HR: stable & adequate Hydration State: stable & adequate Neuraxial Anesthesia: was administered and sensory block is resolving Anesthetic Complications: no major complications apparent and Pt Satisfied with anesthetic care
--- NOTE | 2024-10-21 15:22 | Operative Report ---
PG Post Operative Report Pre & Post Diagnosis Operation Date: 10/21/24 12:00 Pre-Op Diagnosis: Painful left knee replacement with possible aseptic loosening Post-Op Diagnosis: Stable left knee replacement with loose cement fragment I identified the patient and participated in the time-out.: Yes Procedure Operation Date: 10/21/24 12:00 Actual Procedures p Partial Revision Left Total Knee Arthroplasty(Left) - Kana Lerma DO Surgeon Kana Lerma DO Participant Administrator None Estimated Blood Loss 50 Findings Consistent with Post-Op Diagnosis Specimens None Description of Procedure On October 21, 2024 Ananya arrived at [facility] for the above procedure. She was seen in the preoperative holding area and the operative extremity was identified and signed. She was given a preoperative antibiotic and a spinal anesthetic. She was taken back to the operating room and laid on table supine position. She was put under basic sedation. The left knee was prepped and draped sterile fashion. A timeout was done. The patient and the operative extremity was properly identified. The previous midline incision was opened back up. Dissection was taken down through the fascia. The extensor mechanism was exposed. A medial parapatellar approach was used. There was a normal appearing joint fluid and no signs of infection. The medial retinaculum was released. Some scar tissue was removed on the undersurface of the patella. The knee was then flexed. The polyethylene insert was then removed. There was a large piece of dislodged cement in the lateral gutter. This large piece of cement was removed. Attention was first turned to the femur. Time was spent removing all soft tissue from the edges of the femoral component. An bone tamp was used with a mallet to knock on the femoral component. The femoral component was stable and did not move. Attention was then turned to the tibia. Time was spent removing all soft tissue from around the edges of the tibia. The tibia was fully exposed anteriorly. Once all soft tissue and bony fragments were removed around the edge of the tibia, the bone tamp and mallet were used to knock on the tibia and the tibial component was stable. At this point I spent some time making sure the gutters were all cleaned and making sure there was no additional cement fragments. The knee was then irrigated with 2 L of normal saline solution by pulse lavage. A 3-minute Betadine lavage was done. Several different trial polyethylene inserts were used and a size 11 seem to be the best fit. The final size 11 implant was then snapped into place. The knee was brought through full range of motion and felt to be stable. I was able to get a good medial pivot on the MC congruent polyethylene insert. The surrounding soft tissues were then injected with an orthopedic pain control cocktail. The extensor mechanism was closed with #1 Vicryl. Skin was closed with 2-0 Vicryl, 3 oh V-Loc, and chapincito. She was then placed in a soft dressing. She was then taken to the postanesthesia care unit in stable condition. She tolerated the procedure well. I attest to the content of the Intraoperative Record and any orders documented therein. Any exceptions are noted below.
--- NOTE | 2024-10-21 15:34 | XRay Report ---
XR knee LT 1 or 2V routine CLINICAL HISTORY: Surgical Post Op COMPARISON: 09/05/2024 FINDINGS: Left knee prosthesis shows no hardware complication. There is expected soft tissue gas. Sk in chapincito are present. IMPRESSION: Unremarkable postoperative exam. ACT 112: Negative or not required by law. Electronically signed by: Montrell Quezada M.D. 10/21/2024 3:32 PM
[2024-10-21] MEDS ORDERED: METOCLOPRAMIDE HCL INJ 5 MG/ML 2 ML VIAL IV PRN (16:35)
[2024-10-21] MEDS ORDERED: HYDROmorphone INJ 0.5 MG/0.5 ML SYR IV PRN (16:35)
[2024-10-21] MEDS ORDERED: NALOXONE HCL 0.4 MG/1 ML VIAL/CARP IV PRN (16:35)
[2024-10-21] MEDS ORDERED: NON-FORMULARY MEDICATION (Tirzepatide [Mounjaro] 7.5 mg/0.5 mL Pen Injector) SQ SCH (16:35)
[2024-10-21] MEDS ORDERED: oxyCODONE HCL IR 5 MG TAB (IMMEDIATE RELEASE) PO PRN (16:35)
[2024-10-21] MEDS ORDERED: ALBUTEROL HFA 8 GM INHALER INH PRN (16:35)
[2024-10-21] MEDS ORDERED: bisacodyL 10 MG SUPP PR PRN (16:35)
[2024-10-21] MEDS ORDERED: MAGNESIUM HYDROXIDE SUSP 30 ML UDC PO PRN (16:35)
[2024-10-21] MEDS: KETOROLAC TROMETHAMINE 15 MG/ML VIAL IV SCH (16:40)
--- OUTSIDE RECORDS SUMMARY | 2024-10-21 16:48 | External Medical Summary | Continuity of Care Document ---
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 [phone] Problems Active Problems Provider Date Morbid obesity Usman Heredia JR DO Onset: 12/19/2017 Type II diabetes mellitus uncontrolled Usman Heredia JR DO Onset: 12/19/2017 Body mass index 30+ - obesity Usman Heredia JR DO Onset: 12/19/2017 Essential hypertension Usman Heredia JR DO Onset: 04/13/2016 Mixed hyperlipidemia Usman Heredia JR DO On set: 12/19/2017 Dyspnea Usman Heredia JR DO Onset: 12/19/2017 Note: per Document: 07/18/12 - Cardiology Consult Incontinence of feces Usman Heredia JR DO O nset: 12/19/2017 Note: improved on Questran p er Document: 10/11/16 - GI Consult Hypothyroidism Usman Heredia JR, DO Onset: 07/26/2016 Gastroesophageal reflux disease Usman fernandez JR DO Onset: 12/19/2017 Aortic valve stenosis Usman Heredia JR DO O nset: 12/19/2017 Note: "mild stenosis" per Do cument: 07/18/12 - Cardiology Consult Sensorineural hearing loss, bilateral Usman Heredia JR DO Onset: 12/19/2017 Note: per Document: 10/06/16 - ENT Consult Ex-cigarette smoker Usman Heredia JR DO Ons et: 12/19/2017 Uninsured medical expenses Yuliana AnatoliyDO princess Onse t: 07/21/2022 Food insecurity Yuliana AnatoliycristinoDO Onset: 07/21/19 23 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 Usman Heredia JR, DO Onset: 10/27/2022 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 2 diabetes mellitus Usman Heredia JR, DO Onset: 08/22/2023 Atherosclerosis of aorta Evelyn Hendrix JR O Onset: 07/01/2024 Type 2 diabetes mellitus Evelyn Hendrix JR O Onset: 07/01/2024 Social History Type Date Description Comments Sex Unknown Tobacco Use Start: Unknown End: Unknown Former Cigarette Smoker Cigarette Use 10/08/2024 Quit - Age 50 Tobacco Use Reviewed: 10/08/24 Never Smoked Cigars Tobacco Use Reviewed: 10/08/24 Never Smoked A Pipe Smoking Status Reviewed: 10/08/24 Never Smoked A Pipe Smokeless Tobacco 10/08/2024 Never Used Smokeless To bacco ETOH Use Denies alcohol use Recreational Drug Use Denies Drug Use Allergies and adverse reactions Description No Known Drug Allergies Medications Active Medications SIG Qnty Indications Order ing Provider Date Levothyroxine Ofivum694hxv Tablets Take One (1) Tablet By Mouth Every Day 90tabs E03.9 Usman Heredia JR, DO 09/25/2024 Mounjaro7.5mg/0.5ML Solution Auto-Inject 7.5 mg weekly x 4 weeks 6ml E11.21 Usman Heredia JR, DO 07/01/2024 Esomeprazole Bbsscjsdi06gk Capsules DR take 1 capsule once daily for stomach 90caps K21.9 Usman Heredia JR, DO 03/11/2024 Freestyle Michael 3/Sensor/Glucose Monitoring Npebxe3Irxggf [facility] as directed 1units E11.21 Usman Heredia JR, DO 05/16/2023 Terbinafine HCL1% Cream apply daily to affected areas x 2-4 weeks. 90gm B35.4 Usman Heredia JR, DO 02/15/2023 Flonase Allergy Wvnupq75xzt/Act Suspension ! suirt up each nostrol 2-3 times a day for congestion 11.100ml J01.00 Usman Heredia JR, DO 07/21/2022 Hydrocortisone2.5% Cream apply to area twice a day. 60gm L30.9 Erlinda Cummins MD, PhD 12/30/2021 Pataday0.2% Solution 1 drop in each eye once daily 10ml H10.89 Usman Heredia JR, DO 02/15/2021 Albuterol Sulfate(2.5mg/3ML) 0.083% Nebulizer inhale 1 vial via nebulizer up to 4 times a day as needed for wheezing. 75units R05 Usman Heredia JR, DO 05/01/2020 J21.9 R06.2 NebulizerDevice use up to 4 times a day as needed DX:J21.9, R06.2 1units J21.9 Usman Heredia JR , DO 05/01/2020 R06.2 Nebulizer Kit/Tubing/MouthpieceKit use up to 4 times a day as needed DX:J21.9, R06.2 1units J21.9 Usman Heredia JR, DO 05/01/2020 R06.2 Electric Hospital BedDevice needs repositioned in ways that are not supplied by normal bed, dx:left tibial fracture height:65# wt: 248# 1units S82.112S Usman Heredia JR, DO 04/09/2020 Commode BedsideMisc bedside commode due to gait abnormality: cannot access toilet without walker and needs to be nonweight bearing on her leg DX:left tibial fx 1units S82.112S Usman Heredia JR, DO 04/09/2020 Knee Immobilizer 22"/Tri-Panel/Foam22" Misc use daily until evaluated by ortho for possible left acl tear 1units Usman Heredia JR, DO 10/05/2019 Pen [place] 3/16"31G X 5 mm Misc use with insulin 4 times a day 120units Usman Heredia JR, DO 07/02/2019 Magnesium Oxide -MG Fdljcwvgwc911jm Capsules 3 by mouth daily. 30caps Erlinda Cummins MD, PhD 03/27/2019 Atorvastatin Vxqxjtg16uy Tablets Take One (1) Tablet By Mouth Every Day 90tabs E78.2 Erlinda Cummins MD, PhD 03/26/2019 I25.10 E78.1 Contour Next One Blood Glucose StripsStrips test blood sugar before meals or as directed 100units E11.21 Usman Heredia JR, DO 03/30/2018 Tcibdme05P Misc use to check sugars before meals or as directed 100units E11.21 Usman Heredia JR, DO 03/30/2018 Humalog Bubyvmf664Uavu/ML Solution Pen-Inject inject 10 units subcutaneously 2 or 3 times daily 15ml E11.21 Usman Heredia JR, DO 01/31/2018 E11.22 Toujeo Max Acwdzyps859Nwmo/ML Solution Pen-Inject inject 56 units sq every day 12pens E11.21 Usman Heredia JR, DO 01/31/2018 E11.22 Metoprolol Zpqevgjs67uk Tablets Take 1 & 1/2 Tablets By Mouth Twice Daily 270tabs I10 Usman Heredia JR, DO 08/25/2011 Ekqznynzgz68qj Tablets Take One (1) Tabl et By Mouth Every Day 90tabs I10 Usman Heredia JR, DO 12/28/2006 Ventolin QWU888(90Base) mcg/Act Aerosol 2 puffs by mouth every 4-6 hours as needed wheezing 18gm Usman Heredia JR, DO Nasacort Is01rhi/Act Aerosol 2 sprays each nostril once daily during allergy seasons 49.5gm Usman Heredia JR, DO Uzjjzxzcrneznd4rp Packet 1 packet daily 3 times a day 90units R19.7 Usman Heredia JR, DO Mntntlszkf71ic Tablets Take One (1) Tabl et By Mouth Every Day 90tabs I10 Usman Heredia JR, DO Sthpjvuxz63qb Tablets ER 24HR 1 tablet by mouth every day 90tabs Usman Heredia JR, DO Caltrate 600+F0447-563pm-Ocxp Tablets 1 by mouth every day Unknown Aspirin 81 Low Jnds79in Chewtabs 1 by mouth bid x 6 weeks. Unknown History Medications Xzdtdaeu44to/0.5ML Solution Auto-Inject 10 mg weekly x 4 weeks 6ml E11.21 Usman Heredia JR, DO 05/09/2024 - 07/01/2024 Medications Administered in Office Medication SIG Qnty Indications Ordering Provider Date Prolia 60MG/MLInjection Unknow n 03/30/2021 Injection Methylprednisolone Acetate 20 MGInjection Usman Heredia JR, DO 01/01/2020 Injection Dexamethasone Sodi um Phosphate, 1 MGInjection Ted andrade PA-C 07/20/2007 Injection Methylprednisolone Acetate 40 MGInjection Ted pérez PA-C 08/18/2004 Immunizations CPT Code Status Date Vaccine Reaction Lot # [id number] Given 03/25/2024 Influenza Vac, Split, Preservative Free High Dose Age 65 & > [id number] 98648 Given 04/04/2023 Influenza Vacci ne High Dose 0.5ML Age 65 & > [id number] 82126 Given 02/10/2023 Moderna Sars-Co v-2 (Covid-19) Vaccine, BiValent Booster [id number] 12209 Given 04/13/2022 Influenza Vacci ne High Dose 0.5ML Age 65 & > [id number] 62445 Given 06/11/2021 Moderna Covid-1 9 Vaccine 50mcg Booster-EMR Doc Only [id number] 53056 Given 05/26/2021 Influenza Vacci ne High Dose 0.5ML Age 65 & > [id number] 80372 Given 05/26/2021 Pneumococcal Conjugate-Prevna r 13 [id number] 76758 Given 09/12/2020 Moderna Sars-Co v-2 (Cov-19) vacc,100 mcg/ 0.5 mL 12Y+EMR Doc Only [id number] 87247 Given 08/15/2020 Moderna Sars-Co v-2 (Cov-19) vacc,100 mcg/ 0.5 mL 12Y+EMR Doc Only [id number] 12142 Given 06/05/2020 Shingrix 91931 Given 2020 Influenza Virus Vaccine, Quadrivalent, Im Use [id number] 74562 Given 01/28/2020 Shingrix 00187 Given 04/16/2019 Influenza Virus Vaccine, Quadrivalent, Im Use [id number] 79280 Given 05/10/2018 Influenza Virus Vaccine, Quadrivalent, Im Use [id number] 66279 Given 01/31/2018 Pneumococcal Vaccine/Pneumova x 23 [id number] 95791 Given 03/27/2017 Influenza Virus Vaccine, Quadrivalent, Im Use [id number] 69995 Given 04/27/2016 Influenza Virus Vaccine, Quadrivalent, Im Use [id number] 02911 Given 04/17/2012 Influenza Vac, Split 6 Months And Older [id number] 07583 Given 04/17/2012 Pneumococcal Vaccine/Pneumova x 23 [id number] 81826 Given 04/19/2011 Influenza Vac, Split 6 Months And Older [id number] 19048 Given 11/04/2005 Td (Tetanus & D iphtheria) Decavac or Tenivac Age 7 & > 31522 Given 05/20/2003 Influenza Vac, Split 6 Months And Older [id number] Refused 01/01/2020 Tdap (Tetanus, diphtheria & acel. pertussis) Adacel or Boostrix 70274 Refused 01/01/2020 Shingrix 51041 Refused 12/18/2018 Tdap (Tetanus, diphtheria & acel. pertussis) Adacel or Boostrix 85371 Refused 12/18/2018 Shingrix 42436 Refused 10/03/2017 Tdap (Tetanus, diphtheria & acel. pertussis) Adacel or Boostrix 46121 Refused 07/05/2017 Zostavax-PT Supplied [id number] Refused 07/05/2017 Tdap (Tetanus, diphtheria & acel. pertussis) Adacel or Boostrix Vital Signs Date Vital Result Comment 10/08/2024 11:04am BP Systolic 144 mmHg BP Diastolic 82 mmHg BP Systolic Recheck 138 mmHg BP Diastolic Recheck 72 mmHg Body Temperature 97.8 F Heart Rate 76 /min Respiratory Rate 16 /min Weight 221.00 lb Weight 100.246 kg 07/01/2024 9:46am BP Systolic 144 mmHg BP Diastolic 88 mmHg BP Systolic Recheck 132 mmHg BP Diastolic Recheck 78 mmHg Body Temperature 97.8 F Heart Rate 76 /min Respiratory Rate 18 /min Weight 228.00 lb Weight 103.421 kg Results Test Acquired Date Facility Test Result H/L Range Note Microalbumin Urine 10/08/2024 [facility] [address] [place] [address] Urine Creat 49 mg/dL Comment Microalbumin 2.8 mg/dL High 0.0-1.8 1 ug/mgCREATININ E 57 ug/mg High 0-29 Lipid 10/03/2024 [facility] [address] [place] [address] Cholesterol 155 mg/dL 0-200 2, 3 Triglyceride 207 mg/dL High 0-150 4 HDLD 46 mg/dL See Comment 5 Measured LDL 81 mg/dL 0-130 6 Calc VLDL 41.4 mg/dL See Comment 7 Chol/HDL 3.4 RATIO See Comment 8 Non-HDL 109 mg/dL See Comment 9 Hepatic 10/03/2024 [facility] [address] [place] [address] [phone] Alk Phos 135 IU/L High 43-122 Alt(SGPT) 23 IU/L 10-40 Ast(Sgot) 19 IU/L 3-42 T.Bilirubin 0.8 mg/dL 0.1-1.3 D.Bilirubin 0.1 mg/dL 0.0-0.3 Tot.Protein 6.8 g/dL 5.8-8.0 Albumin 4.2 g/dL 3.0-5.2 TSH 10/03/2024 [facility] [address] [place] [address] TSH 1.91 uIU/mL 0.50-6.00 FRT4 10/03/2024 [facility] [address] [place] [address] [phone] FRT4 1.00 ng/dL 0.75-1.54 Magnesium 10/03/2024 [facility] [address] [place], [place] [address] [phone] Magnesium 1.9 mg/dL 1.7-2.8 Vitd-25Oh 10/03/2024 [facility] [address] [place] [address] Vitd-25Oh 49 ng/mL 30-100 Cologuard 07/05/2024 [facility] [address] [place] [address], [address] [place] [address] [phone] Cologuard Positive Abnormal Negative 10 BMP 06/24/2024 [facility] [address] [place] [address] [phone] Glucose 153 mg/dL High 70-110 BUN 14 mg/dL 6-25 Creatinine 0.8 mg/dL 0.5-1.2 Sodium 143 mEq/L 135-145 Potassium 4.4 mEq/L 3.5-5.0 Chloride 105 mEq/L 95-107 Co-2 27 mEq/L 24-31 Calcium 9.3 mg/dL 8.5-10.6 GFR 76 ML/MIN/1.7 3SQM >60 Lipid 06/24/2024 [facility] [address] [place] [address] Cholesterol 154 mg/dL 0-200 11 Triglyceride 146 mg/dL 0-150 1 2 HDLD 47 mg/dL See Comment 13 Measured LDL 88 mg/dL 0-130 14 Calc VLDL 29.2 mg/dL See Comment 15 Chol/HDL 3.3 RATIO See Comment 16 Non-HDL 107 mg/dL See Comment 17 Hepatic 06/24/2024 [facility] [address] [place] [address] [phone] Alk Phos 137 IU/L High 43-122 Alt(SGPT) 22 IU/L 10-40 Ast(Sgot) 21 IU/L 3-42 T.Bilirubin 1.1 mg/dL 0.1-1.3 D.Bilirubin 0.2 mg/dL 0.0-0.3 Tot.Protein 6.9 g/dL 5.8-8.0 Albumin 4.2 g/dL 3.0-5.2 CBC W/Diff 06/24/2024 [facility] [address] [place] [address] WBC 5.3 10^3/M3 3.1-9.2 RBC 5.06 10^6/M3 3.70-5.50 HGB 15.2 GR/DL 11.5-16.1 HCT 44.0 % 34.5-47.8 MCV 86.9 CUMICR 82.6-95.8 MCH 30.1 PICOGR 27.9-32.9 MCHC 34.6 % 32.6-35.4 RDW 13.7 % 11.4-14.6 PLT 348 10^3/M3 140-350 MPV 6.8 CUMICR Low 7.0-10.6 %Neut 62.6 % 40.0-75.0 %Lymph 23.6 % 17.0-45.0 %Gray 7.2 % 1.0-11.0 %Eos 5.3 % 0.0-6.0 %Baso 1.3 % 0.0-2.0 #Neut 3.3 10^3/M3 1.5-8.0 #Lymph 1.2 10^3/M3 0.8-3.2 #Gray 0.4 10^3/M3 0.0-0.8 #Eos 0.3 10^3/m3 0.0-0.4 #Baso 0.1 10^3/m3 0.0-0.2 Hba1c 06/24/2024 [facility] [address] [place] [address] A1c 6.50 % 4.70-6.50 18 TSH 06/24/2024 [facility] [address] [place] [address] [phone] TSH 0.28 uIU/mL Low 0.50-6.00 FRT4 06/24/2024 [facility] [address] [place] [address] FRT4 1.00 ng/dL 0.75-1.54 Magnesium 06/24/2024 [facility] [address] [place] [address] Magnesium 1.9 mg/dL 1.7-2.8 Vitd-25Oh 06/24/2024 [facility] [address] [place] [address] Vitd-25Oh 48 ng/mL 30-100 1 *THE [facility] USES MICROALBUMIN/CREATINE RATIO : *<30 ug/mg CREATININE IS CLASSIFIED NORMAL *30-300 ug/mg CREATININE IS CLASSIFIED CLINICAL MICROALBUMINURIA *>300 ug/mg CREATININE IS CLASSIFIED CLINICAL ALBUMINURIA CLASSIFICATION OF A PATIENT SHOULD BE BASED ON TWO OF THREE ABNORMAL RESULTS COLLECTED WITHIN A 3 TO 6 MONTH TIME FRAME* 2 We took the CBC, BMP Pt will be going to the hospital for pre op labs with a type n screen, so they will have those results faxed to use, instead of charging her t wice. 3 CHOLESTEROL Less than 200mg/dl Low risk 201-239 mg/dl Borderline risk Equal to or greater 240mg/dl High risk 4 TRIGLYCERIDES Less than 150mg/dl Normal 150-199mg/dl Borderline 200-499mg/dl High Greater than 500mg/dl Very High 5 HDL <40mg/dl Elevated Risk 41-59mg/dl Risk >=60mg/dl Least Risk 6 LDL <100mg/dl Optimal 100-129mg/dl Near Optimal 130-159mg/dl Borderline High 160-189mg/dl High >=190 Very High 7 VLDL Less than 30mg/dl Normal 8 CHOL/HDL <4.0 Optimal 4.0-5.0 Borderline >6.0 High Risk 9 NON-HDL 30mg/dl higher than LDL Target 10 POSITIVE TEST RESULT . A positive Cologuard result should be followed with a colonoscopy or visual examination of the colon. The normal value (reference range) for this assay is negative. TEST DESCRIPTION: Composite algorithmic analysis of stool DNA-biomarkers with hemoglobin immunoassay. Quantitative values of individual biomarkers are not reportable and are not associated with individual biomarker result reference ranges. Cologuard is intended for colorectal cancer screening of adults of either sex, 45 years or older, who are at average-risk for colorectal cancer (CRC). Cologuard has been approved for use by the U.S. FDA. The performance of Cologuard was established in a cross sectional study of average-risk adults aged 50-84. Cologuard performance in patients ages 45 to 49 years was estimated by sub-group analysis of near-age groups. Colonoscopies performed for a positive result may find as the most clinically significant lesion: colorectal cancer [4.0%], advanced adenoma (including sessile serrated polyps greater than or equal to 1cm diameter) [20%] or non- advanced adenoma [31%]; or no colorectal neoplasia [45%]. These estimates are derived from a prospective cross-sectional screening study of 10,000 individuals at average risk for colorectal cancer who were screened with both Cologuard and colonoscopy. (Ilya Hutton et al, N Engl J Med 2014;370(14):4338-3264.) Cologuard may produce a false negative or false positive result (no colorectal cancer or precancerous polyp present at colonoscopy follow up). A negative Cologuard test result does not guarantee the absence of CRC or advanced adenoma (pre-cancer). The current Cologuard screening interval is every 3 years. ([employer] Society and [place].S. Multi-Society Task Force). Cologuard performance data in a 10,000 patient pivotal study using colonoscopy as the reference method can be accessed at the following location: www.Hadapt/results. Additional description of the Cologuard test process, warnings and precautions can be found at www.bVisualrd.Predictify. 11 CHOLESTEROL Less than 200mg/dl Low risk 201-239 mg/dl Borderline risk Equal to or greater 240mg/dl High risk 12 TRIGLYCERIDES Less than 150mg/dl Normal 150-199mg/dl Borderline 200-499mg/dl High Greater than 500mg/dl Very High 13 HDL <40mg/dl Elevated Risk 41-59mg/dl Risk >=60mg/dl Least Risk 14 LDL <100mg/dl Optimal 100-129mg/dl Near Optimal 130-159mg/dl Borderline High 160-189mg/dl High >=190 Very High 15 VLDL Less than 30mg/dl Normal 16 CHOL/HDL <4.0 Optimal 4.0-5.0 Borderline >6.0 High Risk 17 NON-HDL 30mg/dl higher than LDL Target 18 MEAN GLUCOSE IN mg/d L/A1c% POOR CONTROL FAIR CONTROL GOOD CONTROL EXCELLENT CONTROL 360-14 210-9 180-8 120-6 330-13 150-7 90-5 300-12 270-11 240-10 Procedures Date Code Description Status 10/08/2024 M1371 Hemaglobin A1c Level < 7% Co mpleted 10/08/2024 3079F PVRP Diastolic BP 80-89 MMHG Completed 10/08/2024 3077F PVRP Systolic BP >/= 140 MMH G Completed 10/03/2024 92178 Venipuncture Routine Complet ed 08/07/2024 [id number] Colonoscopy Completed 08/01/2024 [id number] Bone Mineral Density Test Co mpleted 07/01/2024 G2211 Continuation of care e/m vis it add on Completed 07/01/2024 3078F PVRP Diastolic BP <80 mmHg C ompleted 07/01/2024 3075F PVRP Systolic BP 130 To 139 MMHG Completed 07/01/2024 3044F PVRP HGB-A1c <7.0% Completed 06/24/2024 08836 Venipuncture Routine Complet ed 03/12/2024 [id number] Mammogram Completed Medical Devices Description No Information Available Encounters Type Date Location Provider Dx Diagnosis Office Visit 10/08/2024 11:00a Jessica Heredia JR, DO E11.21 Type 2 diabetes mellitus with diabetic nephropathy I10 Essential (primary) hypertension E78.2 Mixed hyperlipidemia E03.9 Hypothyroidism, unsp ecified E66.01 Morbid (severe) obes ity due to excess calories M17.32 Unilateral post-trau matic osteoarthritis, left knee Office Visit 07/01/2024 10:00a Jessica Heredia JR, DO E11.21 Type 2 diabetes mellitus with diabetic nephropathy I10 Essential (primary) hypertension E78.2 Mixed hyperlipidemia E03.9 Hypothyroidism, unsp ecified I70.0 Atherosclerosis of a tish Assessments Date Code Description Provider 10/08/2024 E11.21 Type 2 diabetes mellitus with diabetic nephropathy Usman Heredia JR, DO 10/08/2024 I10 Essential (primary) hyperten rafaela Usman Heredia JR, DO 10/08/2024 E78.2 Mixed hyperlipidemia Usman Heredia JR, DO 10/08/2024 E03.9 Hypothyroidism, unspecified Usman Heredia JR, DO 10/08/2024 E66.01 Morbid (severe) obesity due to excess calories Usman Heredia JR, DO 10/08/2024 M17.32 Unilateral post- traumatic osteoarthritis, left knee Usman Heredia JR, DO 10/03/2024 E11.21 Type 2 diabetes mellitus with diabetic nephropathy Usman Heredia JR, DO 10/03/2024 E11.21 Type 2 diabetes mellitus with diabetic nephropathy Lab - [place] 10/03/2024 I10 Essential (primary) hyperten rafaela Usman Ta Heredia JR, DO 10/03/2024 I10 Essential (primary) hyperten rafaela [facility] - [place] 10/03/2024 E78.2 Mixed hyperlipidemia Usmanalvaro Heredia JR, DO 10/03/2024 E78.2 Mixed hyperlipidemia [place] 10/03/2024 E03.9 Hypothyroidism, unspecified Usman Heredia JR, DO 10/03/2024 E03.9 Hypothyroidism, unspecified Lab - [place] 10/03/2024 E55.9 Vitamin D deficiency, unspec ified Usman Heredia JR, DO 10/03/2024 E55.9 Vitamin D deficiency, unspec ified Lab - [place] 07/01/2024 E11.21 Type 2 diabetes mellitus with diabetic nephropathy Usman Heredia JR, DO 07/01/2024 I10 Essential (primary) hyperten rafaela Usman Heredia JR, DO 07/01/2024 E78.2 Mixed hyperlipidemia Usman Heredia JR, DO 07/01/2024 E03.9 Hypothyroidism, unspecified Usman Heredia JR, DO 07/01/2024 I70.0 Atherosclerosis of aorta Gurmeet Heredia JR, DO 06/24/2024 E11.21 Type 2 diabetes mellitus with diabetic nephropathy Usman Heredia JR, DO 06/24/2024 E11.21 Type 2 diabetes mellitus with diabetic nephropathy Lab - [place] 06/24/2024 I10 Essential (primary) hyperten rafaela Usmanalvaro Heredia JR, DO 06/24/2024 I10 Essential (primary) hyperten rafaela Lab - [place] 06/24/2024 E78.2 Mixed hyperlipidemia Usman Heredia JR, DO 06/24/2024 E78.2 Mixed hyperlipidemia [facility] [place] 06/24/2024 E03.9 Hypothyroidism, unspecified Usman eHredia JR, DO 06/24/2024 E03.9 Hypothyroidism, unspecified Lab - [place] 06/24/2024 E55.9 Vitamin D deficiency, unspec ified Usman Heredia JR, DO 06/24/2024 E55.9 Vitamin D deficiency, unspec ified Lab - [place] Plan of Treatment Future Appointment(s):* 01/15/2025 8:00 am - [facility] [place] * 01/22/2025 2:30 pm - Usman Heredia JR DO at [place] 10/08/2024 - Usman Heredia JR, DO* E11.21 Type 2 diabetes mellitus with diabetic nephropathy* Referral:* Kamran De La Torre M.D., Ophthalmology * I10 Essential (primary) hypertension * E78.2 Mixed hyperlipidemia * E03.9 Hypothyroidism, unspecified * E66.01 Morbid (severe) obesity due to excess calories * M17.32 Unilateral post-traumatic osteoarthritis, left knee * All* Follow up:* Follow up in 3 months for diabetic check and MCAN with labs or sooner prn. Functional Status Description No Information Available Mental Status Description No Information Available Referrals Refer to Dr Reason for Referral Status Appt Mohamud e Kamran De La Torre M.D. needs yearly diabetic retinal eye e xam Scheduled 10/22/2024 [address] [place] [id number] [phone]
--- OUTSIDE RECORDS SUMMARY | 2024-10-21 16:48 | External Medical Summary | Continuity of Care Document ---
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 Usman Heredia JR, DO Onset: 10/27/2022 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 2 diabetes mellitus Usman Heredia JR, DO Onset: 08/22/2023 Atherosclerosis of aorta Evelyn Hendrix JR Onset: 07/01/2024 Type 2 diabetes mellitus Evelyn Hendrix JR Onset: 07/01/2024 Social History Type Date Description [...] Qnty Indications Order ing Provider Date Levothyroxine Lofffp875fdo Tablets Take One (1) Tablet By Mouth Every Day 90tabs E03.9 Usman Heredia JR, DO 09/25/2024 Mounjaro7.5mg/0.5ML Solution Auto-Inject 7.5 mg weekly x 4 weeks 6ml E11.21 Usman Heredia JR, DO 07/01/2024 Esomeprazole [address]berpmsks31uy Capsules DR take 1 capsule once daily for stomach 90caps K21.9 Usman Heredia JR, DO 03/11/2024 Freestyle Michael 3/Sensor/Glucose Monitoring Ejglmd0Epttkc [facility] [place] as directed 1units E11.21 Usman Heredia JR, DO 05/16/2023 Terbinafine HCL1% Cream apply daily to affected areas x 2-4 weeks. 90gm B35.4 Usman Heredia JR, DO 02/15/2023 Flonase Allergy Jhuuls35xin/Act Suspension ! suirt up each nostrol 2-3 [...] 1units Usman Heredia JR, DO 10/05/2019 Pen [place] 3/16"31G X 5 mm Misc use with insulin 4 times a day 120units Usman Heredia JR, DO 07/02/2019 Magnesium Oxide -MG Hvfnefhzyv199qx Capsules 3 by mouth daily. 30caps Erlinda Cummins MD, PhD 03/27/2019 Atorvastatin Guoiihc42ys Tablets Take One (1) Tablet By Mouth Every Day 90tabs E78.2 Erlinda Cummins MD, PhD 03/26/2019 I25.10 E78.1 Contour Next One Blood Glucose StripsStrips test blood sugar before meals or as directed 100units E11.21 Usman Heredia JR, DO 03/30/2018 Zlfuaui65K Misc use to check sugars before meals or as directed 100units E11.21 Usman Heredia JR, DO 03/30/2018 Humalog Xwoqxtq705Eqtx/ML Solution Pen-Inject inject 10 units subcutaneously 2 or 3 times daily 15ml E11.21 Usman Heredia JR, DO 01/31/2018 E11.22 Toujeo Max Esskcbqh237Pqai/ML Solution Pen-Inject inject 56 units sq every day 12pens E11.21 Usman Heredia JR, DO 01/31/2018 E11.22 Metoprolol Qrilfqvx33dn Tablets Take 1 & 1/2 Tablets By Mouth Twice Daily 270tabs I10 Usman Heredia JR, DO 08/25/2011 Vkelmybcrr30sy Tablets Take One (1) Tabl et By Mouth Every Day 90tabs I10 Usman Heredia JR, DO 12/28/2006 Ventolin UJV529(90Base) mcg/Act Aerosol 2 puffs by mouth every 4-6 hours as needed wheezing 18gm Usman Heredia JR, DO Nasacort Fx99ybg/Act Aerosol 2 sprays each nostril once daily during allergy seasons 49.5gm Usman Heredia JR, DO Eevuurvgcmfftz7he Packet 1 packet daily 3 times a day 90units R19.7 Usman Heredia JR, DO Yvlviktiow08up Tablets Take One (1) Tabl et By Mouth Every Day 90tabs I10 Usman Heredia JR, DO Fliqxvjrp16hr Tablets ER 24HR 1 tablet by mouth every day 90tabs Usman Heredia JR, DO Caltrate 600+Y3773-395tj-Wjxz Tablets 1 by mouth every day Unknown Aspirin 81 Low Egnu79iy Chewtabs 1 by mouth bid x 6 weeks. Unknown History Medications Pjzbszrh66zq/0.5ML Solution Auto-Inject 10 mg weekly x 4 [...] Code Status Date Vaccine Reaction Lot # [id number] Given 03/25/2024 Influenza Vac, Split, Preservative Free High Dose Age 65 & > [id number] 70779 Given 04/04/2023 Influenza Vacci ne High Dose 0.5ML Age 65 & > [id number] 05541 Given 02/10/2023 Moderna Sars-Co v-2 (Covid-19) Vaccine, BiValent Booster 12y+ 92913 Given 04/13/2022 Influenza Vacci ne High Dose 0.5ML Age 65 & > [id number] 90490 Given 06/11/2021 Moderna Covid-1 9 Vaccine 50mcg Booster-EMR Doc Only [id number] 11352 Given 05/26/2021 Influenza Vacci ne High Dose 0.5ML Age 65 & > 341121 52832 Given 05/26/2021 Pneumococcal Conjugate-Prevna r 13 [id number] 73737 Given 09/12/2020 Moderna Sars-Co v-2 (Cov-19) vacc,100 mcg/ 0.5 mL 12Y+EMR Doc Only [id number] 53511 Given 08/15/2020 Moderna Sars-Co v-2 (Cov-19) vacc,100 mcg/ 0.5 mL 12Y+EMR Doc Only [id number] 10643 Given 06/05/2020 Shingrix 16713 Given 2020 Influenza Virus Vaccine, Quadrivalent, Im Use [id number] 59694 Given 01/28/2020 Shingrix 77833 Given 04/16/2019 Influenza Virus Vaccine, Quadrivalent, Im Use [id number] 57458 Given 05/10/2018 Influenza Virus Vaccine, Quadrivalent, Im Use [id number] 15473 Given 01/31/2018 Pneumococcal Vaccine/Pneumova x 23 [id number] 73932 Given 03/27/2017 Influenza Virus Vaccine, Quadrivalent, Im Use [id number] 35317 Given 04/27/2016 Influenza Virus Vaccine, Quadrivalent, Im Use [id number] 41749 Given 04/17/2012 Influenza Vac, Split 6 Months And Older [id number] 91365 Given 04/17/2012 Pneumococcal Vaccine/Pneumova x 23 [id number] 78663 Given 04/19/2011 Influenza Vac, Split 6 Months And Older [id number] 08753 Given 11/04/2005 Td (Tetanus & D iphtheria) Decavac or Tenivac Age 7 & > 11959 Given 05/20/2003 Influenza Vac, Split 6 Months And Older 01927 Refused 01/01/2020 Tdap (Tetanus, diphtheria & acel. pertussis) Adacel or Boostrix [id number] Refused 01/01/2020 Shingrix 81750 Refused 12/18/2018 Tdap (Tetanus, diphtheria & acel. pertussis) Adacel or Boostrix 21207 Refused 12/18/2018 Shingrix 37144 Refused 10/03/2017 Tdap (Tetanus, diphtheria & acel. pertussis) Adacel or Boostrix 68842 Refused 07/05/2017 Zostavax-PT Supplied [id number] Refused 07/05/2017 Tdap (Tetanus, diphtheria & acel. [...] Result H/L Range Note Microalbumin Urine 10/08/2024 [facility]. [address] [place] [address] Urine Creat 49 mg/dL Comment Microalbumin 2.8 mg/dL High 0.0-1.8 1 ug/mgCREATININ E 57 ug/mg High 0-29 Lipid 10/03/2024 [facility]. [address] [place] [address] Cholesterol 155 mg/dL 0-200 2, 3 Triglyceride 207 mg/dL High 0-150 4 HDLD 46 mg/dL See Comment 5 Measured LDL 81 mg/dL 0-130 6 Calc VLDL 41.4 mg/dL See Comment 7 Chol/HDL 3.4 RATIO See Comment 8 Non-HDL 109 mg/dL See Comment 9 Hepatic 10/03/2024 [facility]. [address] [place] [address] Alk Phos 135 IU/L High 43-122 Alt(SGPT) 23 IU/L 10-40 Ast(Sgot) 19 IU/L 3-42 T.Bilirubin 0.8 mg/dL 0.1-1.3 D.Bilirubin 0.1 mg/dL 0.0-0.3 Tot.Protein 6.8 g/dL 5.8-8.0 Albumin 4.2 g/dL 3.0-5.2 TSH 10/03/2024 [facility]. [address] [place] [address] TSH 1.91 uIU/mL 0.50-6.00 FRT4 10/03/2024 [facility]. [address] [place] [address] FRT4 1.00 ng/dL 0.75-1.54 Magnesium 10/03/2024 [facility]. [address] [place], [place] [address] [phone] Magnesium 1.9 mg/dL 1.7-2.8 Vitd-25Oh 10/03/2024 [facility]. [address] [place] [address] [phone] Vitd-25Oh 49 ng/mL 30-100 Cologuard 07/05/2024 [facility] [place] [address] [place] [address], [address] [place] [address] Cologuard Positive Abnormal Negative 10 BMP 06/24/2024 [facility]. [address] [place] [address] Glucose 153 mg/dL High 70-110 BUN 14 mg/dL 6-25 Creatinine 0.8 mg/dL 0.5-1.2 Sodium 143 mEq/L 135-145 Potassium 4.4 mEq/L 3.5-5.0 Chloride 105 mEq/L 95-107 Co-2 27 mEq/L 24-31 Calcium 9.3 mg/dL 8.5-10.6 GFR 76 ML/MIN/1.7 3SQM >60 Lipid 06/24/2024 [facility]. [address] [place] [address] [phone] Cholesterol 154 mg/dL 0-200 11 Triglyceride 146 mg/dL 0-150 1 2 HDLD 47 mg/dL See Comment 13 Measured LDL 88 mg/dL 0-130 14 Calc VLDL 29.2 mg/dL See Comment 15 Chol/HDL 3.3 RATIO See Comment 16 Non-HDL 107 mg/dL See Comment 17 Hepatic 06/24/2024 [facility]. [address] [place] [address] [phone] Alk Phos 137 IU/L High 43-122 Alt(SGPT) 22 IU/L 10-40 Ast(Sgot) 21 IU/L 3-42 T.Bilirubin 1.1 mg/dL 0.1-1.3 D.Bilirubin 0.2 mg/dL 0.0-0.3 Tot.Protein 6.9 g/dL 5.8-8.0 Albumin 4.2 g/dL 3.0-5.2 CBC W/Diff 06/24/2024 [facility]. [address] [place] [address] WBC 5.3 10^3/M3 3.1-9.2 RBC 5.06 10^6/M3 3.70-5.50 HGB 15.2 GR/DL 11.5-16.1 HCT 44.0 % 34.5-47.8 MCV 86.9 CUMICR 82.6-95.8 MCH 30.1 PICOGR 27.9-32.9 MCHC 34.6 % 32.6-35.4 RDW 13.7 % 11.4-14.6 PLT 348 10^3/M3 140-350 MPV 6.8 CUMICR Low 7.0-10.6 %Neut 62.6 % 40.0-75.0 %Lymph 23.6 % 17.0-45.0 %Hendricks 7.2 % 1.0-11.0 %Eos 5.3 % 0.0-6.0 %Baso 1.3 % 0.0-2.0 #Neut 3.3 10^3/M3 1.5-8.0 #Lymph 1.2 10^3/M3 0.8-3.2 #Hendricks 0.4 10^3/M3 0.0-0.8 #Eos 0.3 10^3/m3 0.0-0.4 #Baso 0.1 10^3/m3 0.0-0.2 Hba1c 06/24/2024 [facility]. [address] [place] [address] A1c 6.50 % 4.70-6.50 18 TSH 06/24/2024 [facility]. [address] [place] [address] TSH 0.28 uIU/mL Low 0.50-6.00 FRT4 06/24/2024 [facility]. [address] [place] [address] FRT4 1.00 ng/dL 0.75-1.54 Magnesium 06/24/2024 [facility]. [address] [place] [address] Magnesium 1.9 mg/dL 1.7-2.8 Vitd-25Oh 06/24/2024 [facility]. [address] [place] [address] Vitd-25Oh 48 ng/mL 30-100 1 *THE [employer] USES MICROALBUMIN/CREATINE RATIO : [...] screened with both Cologuard and colonoscopy. (Ilya Tomlinson al, N Engl J Med 2014;370(14):3714-2242.) Cologuard may produce a false negative or false positive result (no colorectal cancer or precancerous polyp present at colonoscopy follow up). A negative Cologuard test result does not guarantee the absence of CRC or advanced adenoma (pre-cancer). The current Cologuard screening interval is every 3 years. ([place] [employer] and U.S. Multi-Society Task Force). Cologuard performance data in a 10,000 patient pivotal study using colonoscopy as the reference method can be accessed at the following location: www.Respectance/results. Additional description of the Cologuard test process, warnings and precautions can be found at [email or web address] [email or web address]. 11 CHOLESTEROL Less than 200mg/dl Low risk [...] BP >/= 140 MMH G Completed 10/03/2024 15898 Venipuncture Routine Complet ed 08/07/2024 [id number] Colonoscopy Completed 08/01/2024 [id number] Bone Mineral Density Test Co mpleted 07/01/2024 G2211 Continuation of care e/m vis it add on Completed 07/01/2024 3078F PVRP Diastolic BP <80 mmHg C ompleted 07/01/2024 3075F PVRP Systolic BP 130 To 139 MMHG Completed 07/01/2024 3044F PVRP HGB-A1c <7.0% Completed 06/24/2024 45433 Venipuncture Routine Complet ed 03/12/2024 [id number] Mammogram Completed Medical Devices Description No Information [...] diabetes mellitus with diabetic nephropathy Lab - [place] 10/03/2024 I10 Essential (primary) hyperten rafaela Lab - [place] 10/03/2024 E78.2 Mixed hyperlipidemia Lab - [place] 10/03/2024 E03.9 Hypothyroidism, unspecified Lab - [place] 10/03/2024 E55.9 Vitamin D deficiency, unspec ified Lab - [place] 07/01/2024 E11.21 Type 2 diabetes mellitus with [...] diabetes mellitus with diabetic nephropathy Lab - [place] 06/24/2024 I10 Essential (primary) hyperten rafaela Usman Heredia JR, DO 06/24/2024 I10 Essential (primary) hyperten rafaela Lab - [place] 06/24/2024 E78.2 Mixed hyperlipidemia Usman Heredia JR, DO 06/24/2024 E78.2 Mixed hyperlipidemia Lab - [place] 06/24/2024 E03.9 Hypothyroidism, unspecified Usman Heredia JR, DO 06/24/2024 E03.9 Hypothyroidism, unspecified Lab - [place] 06/24/2024 E55.9 Vitamin D deficiency, unspec ified Usman Heredia JR, DO 06/24/2024 E55.9 Vitamin D deficiency, unspec ified Lab - [place] Plan of Treatment Future Appointment(s):* 01/15/2025 8:00 am - Lab - [place] * 01/22/2025 2:30 pm - Usman Heredia JR, DO at [place] 10/08/2024 - Usman Heredia JR, DO* E11.21 Type 2 diabetes mellitus with diabetic nephropathy* Referral:* Ophthalmology, * I10 Essential (primary) hypertension * E78.2 [...] Reason for Referral Status Appt Mohamud e Ophthalmology needs yearly diabetic retinal eye exam S cheduled 10/22/2024
--- OUTSIDE RECORDS SUMMARY | 2024-10-21 16:48 | External Medical Summary | Continuity of Care Document ---
Author Name Unknown Organization [place] Address [address] [place] [address], [place] [address] Phone [phone] Care Team Providers Care Assistant Toddler Teacher Name Role Phone Dusty Stokes MD Care Team Information Business Administration Program Chair + [phone] Problems Active Problems Provider Date Morbid obesity [...] JR DO Onset: 12/19/2017 Aortic valve stenosis sUman Heredia JR DO O nset: 12/19/2017 Note: [...] Qnty Indications Order ing Provider Date Levothyroxine Odsija469lkm Tablets Take One (1) Tablet By Mouth Every Day 90tabs E03.9 Usman Heredia JR, DO 09/25/2024 Mounjaro7.5mg/0.5ML Solution Auto-Inject 7.5 mg weekly x 4 weeks 6ml E11.21 Usman Heredia JR, DO 07/01/20[address]ru Caps[address] DR take 1 capsule once daily for stomach 90caps K21.9 Usman Heredia JR, DO 03/11/2024 Freestyle Michael 3/Sensor/Glucose Monitoring Szniwm9Ublfqg [facility] [place] as directed 1units E11.21 Usman Heredia JR, DO 05/16/2023 Terbinafine HCL1% Cream apply daily to affected areas x 2-4 weeks. 90gm B35.4 Usman Heredia JR, DO 02/15/2023 Flonase Allergy Tqteqs20zbd/Act Suspension ! suirt up each nostrol 2-3 [...] 1units Usman Heredia JR, DO 10/05/2019 Pen [place] 3/16"31G X 5 mm Misc use with insulin 4 times a day 120units Usman Heredia JR, DO 07/02/2019 Magnesium Oxide -MG Kxxeumiyao869cp Capsules 3 by mouth daily. 30caps Erlinda Cummins MD, PhD 03/27/2019 Atorvastatin Ghfhefr10oh Tablets Take One (1) Tablet By Mouth Every Day 90tabs E78.2 Erlinda Cummins MD, PhD 03/26/2019 I25.10 E78.1 Contour Next One Blood Glucose StripsStrips test blood sugar before meals or as directed 100units E11.21 Usman Heredia JR, DO 03/30/2018 Buwmbky12H Misc use to check sugars before meals or as directed 100units E11.21 Usman Heredia JR, DO 03/30/2018 Humalog Buwigkt364Zncm/ML Solution Pen-Inject inject 10 units subcutaneously 2 or 3 times daily 15ml E11.21 Usman Heredia JR, DO 01/31/2018 E11.22 Toujeo Max Eikcpnja927Pvuz/ML Solution Pen-Inject inject 56 units sq every day 12pens E11.21 Usman Heredia JR, DO 01/31/2018 E11.22 Metoprolol Ntwenxwt10ya Tablets Take 1 & 1/2 Tablets By Mouth Twice Daily 270tabs I10 Usman Heredia JR, DO 08/25/2011 Dovxqfavvy38qp Tablets Take One (1) Tabl et By Mouth Every Day 90tabs I10 Usman Heredia JR, DO 12/28/2006 Ventolin KTE792(90Base) mcg/Act Aerosol 2 puffs by mouth every 4-6 hours as needed wheezing 18gm Usman Heredia JR, DO Nasacort Xw62efr/Act Aerosol 2 sprays each nostril once daily during allergy seasons 49.5gm Usman Heredia JR, DO Qznlxhpqxmxxgx8iq Packet 1 packet daily 3 times a day 90units R19.7 Usman Heredia JR, DO Xyvteojbvn17tv Tablets Take One (1) Tabl et By Mouth Every Day 90tabs I10 Usman Heredia JR, DO Pxaqvhzlz21uy Tablets ER 24HR 1 tablet by mouth every day 90tabs Usman Heredia JR, DO Caltrate 600+I8993-831cn-Siaw Tablets 1 by mouth every day Unknown Aspirin 81 Low Uvis25id Chewtabs 1 by mouth bid x 6 weeks. Unknown History Medications Xhvizwgr76sl/0.5ML Solution Auto-Inject 10 mg weekly x 4 [...] Code Status Date Vaccine Reaction Lot # [id number] Given 03/25/2024 Influenza Vac, Split, Preservative Free High Dose Age 65 & > [id number] 59559 Given 04/04/2023 Influenza Vacci ne High Dose 0.5ML Age 65 & > [id number] 79035 Given 02/10/2023 Moderna Sars-Co v-2 (Covid-19) Vaccine, BiValent Booster 12y+ 05257 Given 04/13/2022 Influenza Vacci ne High Dose 0.5ML Age 65 & > [id number] 01759 Given 06/11/2021 Moderna Covid-1 9 Vaccine 50mcg Booster-EMR Doc Only [id number] 15031 Given 05/26/2021 Influenza Vacci ne High Dose 0.5ML Age 65 & > 755301 82750 Given 05/26/2021 Pneumococcal Conjugate-Prevna r 13 [id number] 43745 Given 09/12/2020 Moderna Sars-Co v-2 (Cov-19) vacc,100 mcg/ 0.5 mL 12Y+EMR Doc Only [id number] 58063 Given 08/15/2020 Moderna Sars-Co v-2 (Cov-19) vacc,100 mcg/ 0.5 mL 12Y+EMR Doc Only [id number] 91209 Given 06/05/2020 Shingrix 74439 Given 2020 Influenza Virus Vaccine, Quadrivalent, Im Use [id number] 61049 Given 01/28/2020 Shingrix 92280 Given 04/16/2019 Influenza Virus Vaccine, Quadrivalent, Im Use [id number] 02668 Given 05/10/2018 Influenza Virus Vaccine, Quadrivalent, Im Use [id number] 66179 Given 01/31/2018 Pneumococcal Vaccine/Pneumova x 23 [id number] 41137 Given 03/27/2017 Influenza Virus Vaccine, Quadrivalent, Im Use [id number] 85988 Given 04/27/2016 Influenza Virus Vaccine, Quadrivalent, Im Use [id number] 48362 Given 04/17/2012 Influenza Vac, Split 6 Months And Older [id number] 69297 Given 04/17/2012 Pneumococcal Vaccine/Pneumova x 23 [id number] 01523 Given 04/19/2011 Influenza Vac, Split 6 Months And Older [id number] 06523 Given 11/04/2005 Td (Tetanus & D iphtheria) Decavac or Tenivac Age 7 & > 19790 Given 05/20/2003 Influenza Vac, Split 6 Months And Older 72697 Refused 01/01/2020 Tdap (Tetanus, diphtheria & acel. pertussis) Adacel or Boostrix 98090 Refused 01/01/2020 Shingrix 98372 Refused 12/18/2018 Tdap (Tetanus, diphtheria & acel. pertussis) Adacel or Boostrix 35077 Refused 12/18/2018 Shingrix 08685 Refused 10/03/2017 Tdap (Tetanus, diphtheria & acel. pertussis) Adacel or Boostrix 62512 Refused 07/05/2017 Zostavax-PT Supplied [id number] Refused 07/05/2017 Tdap (Tetanus, diphtheria & acel. [...] Result H/L Range Note Microalbumin Urine 10/08/2024 [facility]. [address] [place] [address] [phone] Urine Creat 49 mg/dL Comment Microalbumin 2.8 mg/dL High 0.0-1.8 1 ug/mgCREATININ E 57 ug/mg High 0-29 Lipid 10/03/2024 [facility]. [address] [place] [address] [phone] Cholesterol 155 mg/dL 0-200 2, 3 Triglyceride 207 mg/dL High 0-150 4 HDLD 46 mg/dL See Comment 5 Measured LDL 81 mg/dL 0-130 6 Calc VLDL 41.4 mg/dL See Comment 7 Chol/HDL 3.4 RATIO See Comment 8 Non-HDL 109 mg/dL See Comment 9 Hepatic 10/03/2024 [facility]. [address] [place] [address] Alk Phos 135 IU/L High 43-122 Alt(SGPT) 23 IU/L 10-40 Ast(Sgot) 19 IU/L 3-42 T.Bilirubin 0.8 mg/dL 0.1-1.3 D.Bilirubin 0.1 mg/dL 0.0-0.3 Tot.Protein 6.8 g/dL 5.8-8.0 Albumin 4.2 g/dL 3.0-5.2 TSH 10/03/2024 [facility]. [address] [place] [address] TSH 1.91 uIU/mL 0.50-6.00 FRT4 10/03/2024 [facility]. [address] [place] [address] FRT4 1.00 ng/dL 0.75-1.54 Magnesium 10/03/2024 [facility]. 1 [place], [place] [address] Magnesium 1.9 mg/dL 1.7-2.8 Vitd-25Oh 10/03/2024 [facility]. [address] [place] [address] Vitd-25Oh 49 ng/mL 30-100 Cologuard 07/05/2024 [facility] [address] [place] [address], [address] [place] [address] Cologuard Positive Abnormal Negative 10 BMP 06/24/2024 [facility]. [address] [place] [address] Glucose 153 mg/dL High 70-110 BUN 14 mg/dL 6-25 Creatinine 0.8 mg/dL 0.5-1.2 Sodium 143 mEq/L 135-145 Potassium 4.4 mEq/L 3.5-5.0 Chloride 105 mEq/L 95-107 Co-2 27 mEq/L 24-31 Calcium 9.3 mg/dL 8.5-10.6 GFR 76 ML/MIN/1.7 3SQM >60 Lipid 06/24/2024 [facility]. [address] [place] [address] Cholesterol 154 mg/dL 0-200 11 Triglyceride 146 mg/dL 0-150 1 2 HDLD 47 mg/dL See Comment 13 Measured LDL 88 mg/dL 0-130 14 Calc VLDL 29.2 mg/dL See Comment 15 Chol/HDL 3.3 RATIO See Comment 16 Non-HDL 107 mg/dL See Comment 17 Hepatic 06/24/2024 [facility]. [address] [place] [address] Alk Phos 137 IU/L High 43-122 Alt(SGPT) 22 IU/L 10-40 Ast(Sgot) 21 IU/L 3-42 T.Bilirubin 1.1 mg/dL 0.1-1.3 D.Bilirubin 0.2 mg/dL 0.0-0.3 Tot.Protein 6.9 g/dL 5.8-8.0 Albumin 4.2 g/dL 3.0-5.2 CBC W/Diff 06/24/2024 [facility]. [address] [place] [address] WBC 5.3 10^3/M3 3.1-9.2 RBC 5.06 10^6/M3 3.70-5.50 HGB 15.2 GR/DL 11.5-16.1 HCT 44.0 % 34.5-47.8 MCV 86.9 CUMICR 82.6-95.8 MCH 30.1 PICOGR 27.9-32.9 MCHC 34.6 % 32.6-35.4 RDW 13.7 % 11.4-14.6 PLT 348 10^3/M3 140-350 MPV 6.8 CUMICR Low 7.0-10.6 %Neut 62.6 % 40.0-75.0 %Lymph 23.6 % 17.0-45.0 %[place] 7.2 % 1.0-11.0 %Eos 5.3 % 0.0-6.0 %Baso 1.3 % 0.0-2.0 #Neut 3.3 10^3/M3 1.5-8.0 #Lymph 1.2 10^3/M3 0.8-3.2 #[place] 0.4 10^3/M3 0.0-0.8 #Eos 0.3 10^3/m3 0.0-0.4 #Baso 0.1 10^3/m3 0.0-0.2 Hba1c 06/24/2024 [facility]. [address] [place] [address] A1c 6.50 % 4.70-6.50 18 TSH 06/24/2024 [facility]. [address] [place] [address] TSH 0.28 uIU/mL Low 0.50-6.00 FRT4 06/24/2024 [facility]. [address] [place] [address] [phone] FRT4 1.00 ng/dL 0.75-1.54 Magnesium 06/24/2024 [facility]. [address] [place] [address] [phone] Magnesium 1.9 mg/dL 1.7-2.8 Vitd-25Oh 06/24/2024 [facility]. [address] [place] [address] Vitd-25Oh 48 ng/mL 30-100 1 *THE [employer] USES MICROALBUMIN/CREATINE RATIO : [...] (Ilya Tomlinson al, N Engl J Med 2014;370(14):4718-8067.) Cologuard may produce a false negative or false positive result (no colorectal cancer or precancerous polyp present at colonoscopy follow up). A negative Cologuard test result does not guarantee the absence of CRC or advanced adenoma (pre-cancer). The current Cologuard screening interval is every 3 years. ([place] [employer] and U.S. Multi-Society Task Force). Cologuard performance data in a 10,000 patient pivotal study using colonoscopy as the reference method can be accessed at the following location: www.RallyOn/results. Additional description of the Cologuard test process, warnings and precautions can be found at [email or web address] the [email or web address]. 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, left knee Usmna Heredia JR, DO 10/03/2024 E11.21 Type 2 diabetes mellitus with diabetic nephropathy Lab - [place] 10/03/2024 I10 Essential (primary) hyperten rafaela Lab - [place] 10/03/2024 E78.2 Mixed hyperlipidemia Lab - [place] 10/03/2024 E03.9 Hypothyroidism, unspecified Lab - [place] 10/03/2024 E55.9 Vitamin D deficiency, unspec ified [facility] - [place] 07/01/2024 E11.21 Type 2 diabetes mellitus with diabetic nephropathy Usman Heredia JR, DO 07/01/2024 I10 Essential (primary) hyperten rafaela Usman Heredia JR, DO 07/01/2024 E78.2 Mixed hyperlipidemia Usman Heredia JR, DO 07/01/2024 E03.9 Hypothyroidism, unspecified Usman Heredia JR, DO 07/01/2024 I70.0 Atherosclerosis of aorta Guremet Heredia JR, DO 06/24/2024 E11.21 Type 2 diabetes mellitus with diabetic nephropathy Usman Heredia JR, DO 06/24/2024 E11.21 Type 2 diabetes mellitus with diabetic nephropathy [facility] - [place] 06/24/2024 I10 Essential (primary) hyperten rafaela Usman Heredia JR, DO 06/24/2024 I10 Essential (primary) hyperten rafaela [facility] [place] 06/24/2024 E78.2 Mixed hyperlipidemia Usman Heredia JR, DO 06/24/2024 E78.2 Mixed hyperlipidemia [facility] [place] 06/24/2024 E03.9 Hypothyroidism, unspecified Usman Heredia JR, DO 06/24/2024 E03.9 Hypothyroidism, unspecified [facility] - [facility] 06/24/2024 E55.9 Vitamin D deficiency, unspec ified Usman Heredia JR, DO 06/24/2024 E55.9 Vitamin D deficiency, unspec ified [facility] - [facility] Plan of Treatment Future Appointment(s):* 01/15/2025 8:00 am - [facility] * 01/22/2025 2:30 pm - Usman Heredia JR, DO at [facility] 10/08/2024 - Usman Heredia JR, DO* E11.21 [...]
--- OUTSIDE RECORDS SUMMARY | 2024-10-21 16:48 | External Medical Summary | Continuity of Care Document ---
Author Name Unknown Organization [facility] Address [address] [place] [address], [place] [address] Phone [phone] Care Team Providers Care Sand Hauler Name Role Phone Dusty Stokes MD Care Team Information Kiln Packer [phone] Problems Active Problems Provider Date Morbid obesity [...] Qnty Indications Order ing Provider Date Levothyroxine Lhuyjf203avt Tablets Take One (1) Tablet By Mouth Every Day 90tabs E03.9 Usman Heredia JR, DO 09/25/2024 Mounjaro7.5mg/0.5ML Solution Auto-Inject 7.5 mg weekly x 4 weeks 6ml E11.21 Usman Heredia JR, DO 07/01/2024 Esomeprazole Pmnqnrwgj98ml Capsules DR take 1 capsule once daily for stomach 90caps K21.9 Usman Heredia JR, DO 03/11/2024 Freestyle Michael 3/Sensor/Glucose Monitoring Rjnjcr3Lznoju [facility] [place] as directed 1units E11.21 Usman Heredia JR, DO 05/16/2023 Terbinafine HCL1% Cream apply daily to affected areas x 2-4 weeks. 90gm B35.4 Usman Heredia JR, DO 02/15/2023 Flonase Allergy Hnfwiz95uhv/Act Suspension ! suirt up each nostrol 2-3 [...] 1units Usman Heredia JR, DO 10/05/2019 Pen [place] 3/16"31G X 5 mm Misc use with insulin 4 times a day 120units Usman Heredia JR, DO 07/02/2019 Magnesium Oxide -MG Dtkxzufpot650qh Capsules 3 by mouth daily. 30caps Erlinda Cummins MD, PhD 03/27/2019 Atorvastatin Vluprjj56hq Tablets Take One (1) Tablet By Mouth Every Day 90tabs E78.2 Erlinda Cummins MD, PhD 03/26/2019 I25.10 E78.1 Contour Next One Blood Glucose StripsStrips test blood sugar before meals or as directed 100units E11.21 Usman Heredia JR, DO 03/30/2018 Buucorb84O Misc use to check sugars before meals or as directed 100units E11.21 Usman Heredia JR, DO 03/30/2018 Humalog Pssnxlf703Zxnl/ML Solution Pen-Inject inject 10 units subcutaneously 2 or 3 times daily 15ml E11.21 Usman Heredia JR, DO 01/31/2018 E11.22 Toujeo Max Wuwtvxcc793Tljf/ML Solution Pen-Inject inject 60 units subcutaneously every day 18ml E11.21 Usman Heredia JR, DO 01/31/2018 E11.22 Metoprolol Yneeuuzw67nk Tablets Take 1 & 1/2 Tablets By Mouth Twice Daily 270tabs I10 Usman Heredia JR, DO 08/25/2011 Ybxnxpqvff39fp Tablets Take One (1) Tabl et By Mouth Every Day 90tabs I10 Usman Heredia JR, DO 12/28/2006 Ventolin EZF232(90Base) mcg/Act Aerosol 2 puffs by mouth every 4-6 hours as needed wheezing 18gm Usman Heredia JR, DO Nasacort Cw95tkf/Act Aerosol 2 sprays each nostril once daily during allergy seasons 49.5gm Usman Heredia JR, DO Ovgvgwogsuntag7gz Packet 1 packet daily 3 times a day 90units R19.7 Usman Heredia JR, DO Ncolpajikz37el Tablets Take One (1) Tabl et By Mouth Every Day 90tabs I10 Usman Heredia JR, DO Ognhdjouk60hw Tablets ER 24HR 1 tablet by mouth every day 90tabs Usman Heredia JR, DO Caltrate 600+Z8035-464rx-Knrn Tablets 1 by mouth every day Unknown Aspirin 81 Low Cqri74ed Chewtabs 1 by mouth bid x 6 weeks. Unknown History Medications Wnnhpbns37ed/0.5ML Solution Auto-Inject 10 mg weekly x 4 [...] Code Status Date Vaccine Reaction Lot # [id number] Given 03/25/2024 Influenza Vac, Split, Preservative Free High Dose Age 65 & > [id number] 70798 Given 04/04/2023 Influenza Vacci ne High Dose 0.5ML Age 65 & > [id number] 91240 Given 02/10/2023 Moderna Sars-Co v-2 (Covid-19) Vaccine, BiValent Booster [id number] 53811 Given 04/13/2022 Influenza Vacci ne High Dose 0.5ML Age 65 & > [id number] 93786 Given 06/11/2021 Moderna Covid-1 9 Vaccine 50mcg Booster-EMR Doc Only [id number] 40213 Given 05/26/2021 Influenza Vacci ne High Dose 0.5ML Age 65 & > [id number] 84494 Given 05/26/2021 Pneumococcal Conjugate-Prevna r 13 [id number] 85718 Given 09/12/2020 Moderna Sars-Co v-2 (Cov-19) vacc,100 mcg/ 0.5 mL 12Y+EMR Doc Only [id number] 98892 Given 08/15/2020 Moderna Sars-Co v-2 (Cov-19) vacc,100 mcg/ 0.5 mL 12Y+EMR Doc Only [id number] 30527 Given 06/05/2020 Shingrix 69214 Given 2020 Influenza Virus Vaccine, Quadrivalent, Im Use [id number] 98745 Given 01/28/2020 Shingrix 16951 Given 04/16/2019 Influenza Virus Vaccine, Quadrivalent, Im Use [id number] 90862 Given 05/10/2018 Influenza Virus Vaccine, Quadrivalent, Im Use [id number] 41734 Given 01/31/2018 Pneumococcal Vaccine/Pneumova x 23 [id number] 49068 Given 03/27/2017 Influenza Virus Vaccine, Quadrivalent, Im Use [id number] 93527 Given 04/27/2016 Influenza Virus Vaccine, Quadrivalent, Im Use [id number] 15102 Given 04/17/2012 Influenza Vac, Split 6 Months And Older [id number] 44244 Given 04/17/2012 Pneumococcal Vaccine/Pneumova x 23 [id number] 17851 Given 04/19/2011 Influenza Vac, Split 6 Months And Older [id number] 65356 Given 11/04/2005 Td (Tetanus & D iphtheria) Decavac or Tenivac Age 7 & > 99538 Given 05/20/2003 Influenza Vac, Split 6 Months And Older [id number] Refused 01/01/2020 Tdap (Tetanus, diphtheria & acel. pertussis) Adacel or Boostrix 15448 Refused 01/01/2020 Shingrix 78069 Refused 12/18/2018 Tdap (Tetanus, diphtheria & acel. pertussis) Adacel or Boostrix 24805 Refused 12/18/2018 Shingrix 79753 Refused 10/03/2017 Tdap (Tetanus, diphtheria & acel. pertussis) Adacel or Boostrix 07485 Refused 07/05/2017 Zostavax-PT Supplied [id number] Refused 07/05/2017 Tdap (Tetanus, diphtheria & acel. [...] Result H/L Range Note Microalbumin Urine 10/08/2024 [facility] [address] [place] [address] [phone] Urine Creat 49 mg/dL Comment Microalbumin 2.8 mg/dL High 0.0-1.8 1 ug/mgCREATININ E 57 ug/mg High 0-29 Lipid 10/03/2024 [facility] [address] [place] [address] [phone] Cholesterol 155 mg/dL 0-200 2, 3 Triglyceride 207 mg/dL High 0-150 4 HDLD 46 mg/dL See Comment 5 Measured LDL 81 mg/dL 0-130 6 Calc VLDL 41.4 mg/dL See Comment 7 Chol/HDL 3.4 RATIO See Comment 8 Non-HDL 109 mg/dL See Comment 9 Hepatic 10/03/2024 [facility] [address] [place] [address] [phone] Alk Phos 135 IU/L High 43-122 Alt(SGPT) 23 IU/L 10-40 Ast(Sgot) 19 IU/L 3-42 T.Bilirubin 0.8 mg/dL 0.1-1.3 D.Bilirubin 0.1 mg/dL 0.0-0.3 Tot.Protein 6.8 g/dL 5.8-8.0 Albumin 4.2 g/dL 3.0-5.2 TSH 10/03/2024 [facility] [address] [place] [address] TSH 1.91 uIU/mL 0.50-6.00 FRT4 10/03/2024 [facility] [address] [place] [address] FRT4 1.00 ng/dL 0.75-1.54 Magnesium 10/03/2024 [facility] [address] [place], [place] [id number] [phone] Magnesium 1.9 mg/dL 1.7-2.8 Vitd-25Oh 10/03/2024 [facility] [address] [place] [address] Vitd-25Oh 49 ng/mL 30-100 Cologuard 07/05/2024 [facility] [address] [place] [address], [address] [place] [address] Cologuard Positive Abnormal Negative 10 BMP 06/24/2024 [facility] [address] [place] [address] [phone] Glucose 153 mg/dL High 70-110 BUN 14 mg/dL 6-25 Creatinine 0.8 mg/dL 0.5-1.2 Sodium 143 mEq/L 135-145 Potassium 4.4 mEq/L 3.5-5.0 Chloride 105 mEq/L 95-107 Co-2 27 mEq/L 24-31 Calcium 9.3 mg/dL 8.5-10.6 GFR 76 ML/MIN/1.7 3SQM >60 Lipid 06/24/2024 [facility] [address] [place] [address] [phone] Cholesterol 154 mg/dL 0-200 11 Triglyceride 146 mg/dL 0-150 1 2 HDLD 47 mg/dL See Comment 13 Measured LDL 88 mg/dL 0-130 14 Calc VLDL 29.2 mg/dL See Comment 15 Chol/HDL 3.3 RATIO See Comment 16 Non-HDL 107 mg/dL See Comment 17 Hepatic 06/24/2024 [facility] [address] [place] [address] [phone] Alk Phos 137 IU/L High 43-122 Alt(SGPT) 22 IU/L 10-40 Ast(Sgot) 21 IU/L 3-42 T.Bilirubin 1.1 mg/dL 0.1-1.3 D.Bilirubin 0.2 mg/dL 0.0-0.3 Tot.Protein 6.9 g/dL 5.8-8.0 Albumin 4.2 g/dL 3.0-5.2 CBC W/Diff 06/24/2024 [facility] [address] [place] [address] [phone] WBC 5.3 10^3/M3 3.1-9.2 RBC 5.06 10^6/M3 3.70-5.50 HGB 15.2 GR/DL 11.5-16.1 HCT 44.0 % 34.5-47.8 MCV 86.9 CUMICR 82.6-95.8 MCH 30.1 PICOGR 27.9-32.9 MCHC 34.6 % 32.6-35.4 RDW 13.7 % 11.4-14.6 PLT 348 10^3/M3 140-350 MPV 6.8 CUMICR Low 7.0-10.6 %Neut 62.6 % 40.0-75.0 %Lymph 23.6 % 17.0-45.0 %Brewster 7.2 % 1.0-11.0 %Eos 5.3 % 0.0-6.0 %Baso 1.3 % 0.0-2.0 #Neut 3.3 10^3/M3 1.5-8.0 #Lymph 1.2 10^3/M3 0.8-3.2 #Brewster 0.4 10^3/M3 0.0-0.8 #Eos 0.3 10^3/m3 0.0-0.4 #Baso 0.1 10^3/m3 0.0-0.2 Hba1c 06/24/2024 [facility] [address] [place] [address] A1c 6.50 % 4.70-6.50 18 TSH 06/24/2024 [facility] [address] [place] [address] TSH 0.28 uIU/mL Low 0.50-6.00 FRT4 06/24/2024 [facility] [address] [place] [address] FRT4 1.00 ng/dL 0.75-1.54 Magnesium 06/24/2024 [facility] [address] [place] [address] Magnesium 1.9 mg/dL 1.7-2.8 Vitd-25Oh 06/24/2024 [facility] [address] [place] [address] [phone] Vitd-25Oh 48 ng/mL 30-100 1 *THE [employer] USES MICROALBUMIN/CREATINE RATIO : [...] (Ilya Tomlinson al, N Engl J Med 2014;370(14):0066-6209.) Cologuard may produce a false negative or false positive result (no colorectal cancer or precancerous polyp present at colonoscopy follow up). A negative Cologuard test result does not guarantee the absence of CRC or advanced adenoma (pre-cancer). The current Cologuard screening interval is every 3 years. ([place] and [place] Multi-Society Task Force). Cologuard performance data in a 10,000 patient pivotal study using colonoscopy as the reference method can be accessed at the following location: www.[employer]/results. Additional description of the Cologuard test process, warnings and precautions can be found at www.cologuard.com. 11 CHOLESTEROL Less than 200mg/dl Low risk [...] A1c Level < 7% Co mpleted 10/08/2024 G2211 Continuation of care e/m vis it add on Completed 10/08/2024 3079F PVRP Diastolic BP 80-89 MMHG Completed 10/08/2024 3077F PVRP Systolic BP >/= 140 MMH G Completed 10/03/2024 57566 Venipuncture Routine Complet ed 08/07/2024 [id number] Colonoscopy Completed 08/01/2024 [id number] Bone Mineral Density Test Co mpleted 07/01/2024 G2211 Continuation of care e/m vis it add on Completed 07/01/2024 3078F PVRP Diastolic BP <80 mmHg C ompleted 07/01/2024 3075F PVRP Systolic BP 130 To 139 MMHG Completed 07/01/2024 3044F PVRP HGB-A1c <7.0% Completed 06/24/2024 50776 Venipuncture Routine Complet ed 03/12/2024 [id number] Mammogram Completed Medical Devices Description No Information [...] diabetes mellitus with diabetic nephropathy Lab - [facility] 10/03/2024 I10 Essential (primary) hyperten rafaela Usman Ta Heredia JR, DO 10/03/2024 I10 Essential (primary) hyperten rafaela Lab - [facility] 10/03/2024 E78.2 Mixed hyperlipidemia Usmanalvaro Heredia JR, DO 10/03/2024 E78.2 Mixed hyperlipidemia Lab [place] 10/03/2024 E03.9 Hypothyroidism, unspecified Usman Heredia JR, DO 10/03/2024 E03.9 Hypothyroidism, unspecified Lab - [facility] 10/03/2024 E55.9 Vitamin D deficiency, unspec ified Usman Heredia JR, DO 10/03/2024 E55.9 Vitamin D deficiency, unspec ified Lab - [facility] 07/01/2024 E11.21 Type 2 diabetes mellitus with diabetic nephropathy Usman Heredia JR, DO 07/01/2024 I10 Essential (primary) hyperten rafaela Hymanemilie Heredia JR, DO 07/01/2024 E78.2 Mixed hyperlipidemia Usman Heredia JR, DO 07/01/2024 E03.9 Hypothyroidism, unspecified Usman Heredia JR, DO 07/01/2024 I70.0 Atherosclerosis of aorta Gurmeet Heredia JR, DO 06/24/2024 E11.21 Type 2 diabetes mellitus with diabetic nephropathy Usman Heredia JR, DO 06/24/2024 E11.21 Type 2 diabetes mellitus with diabetic nephropathy Lab - [facility] 06/24/2024 I10 Essential (primary) hyperten rafaela Levialvaro Heredia JR, DO 06/24/2024 I10 Essential (primary) hyperten rafaela Lab - [place] 06/24/2024 E78.2 Mixed hyperlipidemia Usman Heredia JR, DO 06/24/2024 E78.2 Mixed hyperlipidemia Lab [place] 06/24/2024 E03.9 Hypothyroidism, unspecified Usman Heredia JR, DO 06/24/2024 E03.9 Hypothyroidism, unspecified Lab - [place] 06/24/2024 E55.9 Vitamin D deficiency, unspec ified Usman Heredia JR, DO 06/24/2024 E55.9 Vitamin D deficiency, unspec ified Lab - [facility] Plan of Treatment Future Appointment(s):* 01/15/2025 8:00 am - [facility] [place] * 01/22/2025 2:30 pm - Usman Heredia JR DO at [facility] 10/08/2024 - Usman Heredia JR, * E11.21 Type 2 diabetes mellitus with diabetic [...] to Dr Reason for Referral Status Appt Mohmaud e Kamran De La Torre M.D. needs yearly diabetic retinal eye e xam Scheduled 10/22/2024 [address] [id number] [phone]
--- OUTSIDE RECORDS SUMMARY | 2024-10-21 16:49 | External Medical Summary | Summary of Care ---
Author Name Unknown Organization [facility] [address] [facility] [address] Phone [phone] Care Team Providers Care Hospital Nurse Name Role Phone Yan Rincon DO, Kenneth Primary Care Provider [phone] Encounter Details Date Type Department Care Team (Late st Contact Info) Description 10/03/2024 Orders Only Unspecified Department Usman eHredia Jr., DO [address] [facility] [place] [phone] Allergies No known active allergiesdocumented as of this encounter (statuses as of 10/04/2024) Medications FUROSEMIDE 40 MG PO TABS one daily Active NEXIUM 40 MG PO CPDR one daily Active LISINOPRIL 40 MG PO TABS 1 tab daily Active METFORMIN HCL 500 MG PO TABS 1 tab twice daily Active CALTRATE 600+D 600-400 MG-UNIT PO TABS 1 tab twice daily Active ATORVASTATIN CALCIUM 40 MG PO TABS 1 tab daily Active VENTOLIN HFA 108 (90 BASE) MCG/ACT IN AERS as needed Active metoprolol (LOPRESSOR) 25 MG Tablet 1 tablet a day by mouth for 1 week then discontinue. 5 Active Insulin Glargine (TOUJEO SOLOSTAR) 300 UNIT/ML SOPN Inject under the skin. Active Triamcinolone Acetonide (NASACORT ALLERGY 24HR) 55 MCG/ACT AERO Administer into nostril. Active Insulin Lispro, 1 Unit Dial, (HUMALOG KWIKPEN) 100 UNIT/ML SOPN Start: 11/14/18 9:03:00 EDT, 6 unit =, subQ, bid 9 Active levothyroxine (LEVOXYL) 175 MCG Tablet Start: 11/14/18 9:02:00 EDT, 150 mcg =, PO, Daily 9 Active Psyllium (METAMUCIL) 0.36 g CAPS Start: 12/31/15 16:50:00, 1.7 g =, PO, Daily 6 Active Insulin Glargine, 1 Unit Dial, (TOUJEO SOLOSTAR) 300 UNIT/ML SOPN Start: 05/17/16 13:24:00 EDT, subQ, 58 units once daily at HS 6 Active Magnesium 400 MG Oral Tablet Take 1.5 Tablets by mouth in the morning and 1.5 Tablets before bedtime. Active Aspirin 81 MG Oral Tablet Delayed Release Take 1 Tablet by mouth in the morning and 1 Tablet before bedtime. Active Colestipol HCl 1 GM Oral Tablet (Colestid) Take 2 Tablets by mouth 4 times a day as needed. Active Mounjaro 7.5 MG/0.5ML Subcutaneous Solution Auto-injector (Tirzepatide) Inject 7.5 mg under the skin once a week. Active Mirabegron ER 50 MG Oral Tablet Extended Release 24 Hour (Myrbetriq) Take 1 Tablet by mouth in the morning. 90 Tablet 3 5 Active documented as of this encounter (statuses as of 10/04/2024) Active Problems Problem Noted Date Diagnosed Date Gastrointestinal hemorrhage with melena 03/21/20 19 Vertigo 03/21/2019 Ambulatory dysfunction 03/21/2019 Generalized weakness 03/20/2019 Abdominal pain 03/20/2019 Vomiting 03/20/2019 Diarrhea 03/20/2019 Obesity, Class III, BMI 40-49.9 (morbid obesity) 07/08/2013 Aortic valve disorder 07/16/2012 Overview (04/17/2017): ICD-10 update of inactive term HTN, goal below 140/80 03/05/2012 Overview: Per HTN Protocol #27. Diabetes mellitus 12/08/2011 Dyslipidemia, goal LDL below 100 12/08/2011 History of tobacco use 12/08/2011 documented as of this encounter (statuses as of 10/04/2024) Resolved Problems Problem Noted Date Diagnosed Date Resolved Date Chest pain 12/08/2011 07/16/2012 HTN, goal below 130/80 12/08/201103/08 Overview: Per HTN Protocol #27. documented as of this encounter (statuses as of 10/04/2024) Social History Tobacco Use Types Packs/Day Years Used Date Smoking Tobacco: Former Cigarettes 0.5 7 0 03/09/2004 - 03/09/2011 Smokeless Tobacco: Never Alcohol Use Standard Drinks/Week Comments No 0 (1 standard drink = 0.6 oz pur e alcohol) holidays/socially Comments No Sex and Gender Information Value Date Recorded Sex Assigned at Not on file Legal Sex Female 6:56 AM EST Gender Identity Not on file Sexual Orientation Not on file Occupation Industry Job Start Date Job End Date disabled Not on file Not on file Not on file documented as of this encounter Functional Status * Are you deaf or do you have serious difficulty hearing? Answer Date of Assessment Author Yes 03/20/2019 11:39 PM Magdalena Carreno LPN * Are you blind or do you have serious difficulty seeing, even when wearing glasses? Answer Date of Assessment Author Yes 03/20/2019 11:39 PM Magdalena Carreno LPN * Do you have serious difficulty walking or climbing stairs? (5 years old or older) Answer Date of Assessment Author No 03/20/2019 11:39 PM Magdalena Carreno LPN * Do you have difficulty dressing or bathing? (5 years old or older) Answer Date of Assessment Author No 03/20/2019 11:39 PM Magdalena Carreno LPN * Because of a physical, mental, or emotional condition, do you have difficulty doing errands alone such as visiting a doctor’s office or shopping? (15 years old or older) Answer Date of Assessment Author Yes 03/20/2019 11:39 PM Magdalena Carreno LPN documented as of this encounter Mental Status * Because of a physical, mental, or emotional condition, do you have serious difficulty concentrating, remembering, or making decisions? (5 years old or older) Answer Entry Date Author No 03/20/2019 11:39 PM EDT Magdalena Ca LPN documented in this encounter Plan of Treatment Upcoming Encounters Date Type Department Care Team (Late st Contact Info) Description 09/30/2025 10:30 AM EDT Office Visit Urology Mala Mueller [address] [place] [address] [place] Telles PA-C [address] [place] [phone] Scheduled Procedures Name Priority Associated Diagnoses Date/Ti me COLONOSCOPY FLEXIBLE PROXIMA L DIAGNOSTIC Recall History of colonic polyps Health Maintenance Due Date Last Done Comments Depression Screening 1968 B-12 1974 Diabetic Foot Exam 1974 Hepatitis C Screening 1974 Fecal Occult Blood Test 2001 Sigmoidoscopy 2001 DTap/Tdap Vaccines (1 - Tdap) 11/05/2005 11/04/2005 Diabetic Eye Exam 10/28/2023 10/27/2022 COVID-19 Vaccine (3 - 2023- season) 2024 09/12/2020, 08/15/2020 Albumin/Creatinine Ratio 08/22/2024 024, 07/21/2022, 03/09/2020 HbA1c 12/23/2024 06/24/2024, 090 09/2023, 12/07/2023, Additional history exists Mammogram 03/12/2025 03/12/2024, 080 02/2023, 08/23/2022, Additional history exists GFR 06/24/2025 06/24/2024, 090 09/2023, 03/01/2024, Additional history exists TSH 10/03/2025 10/03/2024, 120 03/2024, 03/19/2024, Additional history exists Pneumococcal Vaccine: 50+ Years (3 of 3 - PCV20 or PCV21) 05/26/2026 05/26/2021, 01/31/2018, 04/17/2012 Cologuard 07/13/2027 07/13/2024, 07/05/2024 Colonoscopy 08/07/2029 08/07/2024, 08/07/2024 Colorectal Cancer Screening 08/07/2029 Lipid Panel 10/03/2029 10/03/2024, 12/0 03/2024, 03/19/2024, Additional history exists DXA Scan 08/01/2031 08/01/2024, 08/0 02/2022, 09/17/2020, Additional history exists Zoster Vaccines Completed 06/05/2020, 01/28/2020 Influenza Vaccine (FLU shot) Completed 03/2024, 04/04/2023, 04/13/2022, Additional history exists HPV (Gardasil) Vaccine Aged Out No lo nger eligible based on patient's age to complete this topic Hepatitis B Vaccine Aged Out No longe r eligible based on patient's age to complete this topic MENINGOCOCCAL (MENACTRA/MENVEO) Aged Out No longer eligible based on patient's age to complete this topic Meningitis B Vaccine (Bexsero/Trumemba) Aged Out No longer eligible based on patient's age to complete this topic documented as of this encounter Medical Devices Not on filedocumented as of this encounter Procedures Procedure Name Priority Date/Time Associated Diagnosis Comments FRT4 - OUTSIDE LAB Routine 10/03/2024 7: 43 AM EDT 25-HYDROXY VITAMIN D Routine 10/03/2024 7:43 AM EDT HEPATIC FUNCTION PANEL Routine 10/03/2024 7:43 AM EDT TSH Routine 10/03/2024 7:43 AM EDT MAGNESIUM Routine 10/03/2024 7:43 AM EDT LIPID PANEL WITHOUT DIRECT LDL Routine 10/03/2024 7:43 AM EDT documented in this encounter Results * (ABNORMAL) LIPID PANEL WITHOUT DIRECT LDL (10/03/2024 7:43 AM EDT) CHOLESTEROL-Out side Lab 155 0 - 200 MG/DL 10/03/2024 10:40 AM [facility] Comment: Document delivery by Branden on behalf of [facility] CHOLESTEROL Less than 200mg/dl Low risk 201-239 mg/dl Borderline risk Equal to or greater 240mg/dl High risk TRIGLYCERIDES-O UTSIDE LAB 207(H) 0 - 150 MG/DL 10/03/2024 10:40 AM [facility] Comment: Document delivery by Branden on behalf of [facility] TRIGLYCERIDES Less than 150mg/dl Normal 150-199mg/dl Borderline 200-499mg/dl High Greater than 500mg/dl Very High HDLD - OUTSIDE LAB 46 SEE COMMENT MG/DL 10/03/2024 10:40 AM [facility] Comment: Document delivery by Branden on behalf of [facility] HDL <40mg/dl Elevated Risk 41-59mg/dl Risk >=60mg/dl Least Risk LDL (DIRECT MEASURE)-OUTSID E LAB 81 0 - 130 MG/DL 10/03/2024 10:40 AM [facility] Comment: Document delivery by Branden on behalf of [facility] LDL <100mg/dl Optimal 100-129mg/dl Near Optimal 130-159mg/dl Borderline High 160-189mg/dl High >=190 Very High CALCULATED VLDL - OUTSIDE LAB 41.4 SEE COMMENT MG/DL 10/03/2024 10:40 AM [facility] Comment: Document delivery by Branden on behalf of [facility] VLDL Less than 30mg/dl Normal HDLD - OUTSIDE LAB 3.4 SEE COMMENT RATIO 10/03/2024 10:40 AM [facility] Comment: Document delivery by Branden on behalf of [facility] CHOL/HDL <4.0 Optimal 4.0-5.0 Borderline >6.0 High Risk NON-HDL - OUTSIDE LAB 109 SEE COMMENT MG/DL 10/03/2024 10:40 AM [facility] Comment: Document delivery by Branden on behalf of [facility] NON-HDL 30mg/dl higher than LDL Target 10/03/2024 7:43 AM EDT Usman Heredia Jr., DO LAB BLOOD ORDERABLES Jania l Result Performing Organization Address City/[facility]/ZIP Co de Phone Number [facility] 1 [facility] [address] [place] [id number] * 25-HYDROXY VITAMIN D (10/03/2024 7:43 AM EDT) 25-HYDROXY VITAMIN D - OUTSIDE LAB 49 30 - 100 ng/mL 10/03/2024 11:08 AM EDT [facility] Comment:Document delivery by Branden on behalf of [facility] 10/03/2024 7:43 AM EDT Usman Heredia Jr., DO LAB BLOOD ORDERABLES Jania l Result Performing Organization Address [facility] de Phone Number [facility] 1 [facility] [address] [place] [phone] * TSH (10/03/2024 7:43 AM EDT) TSH REFLEX - OUTSIDE LAB 1.91 0.50 - 6.00 uIU/mL 10/03/2024 11:06 AM EDT [facility] Comment:Document delivery by Branden on behalf of [facility] 10/03/2024 7:43 AM EDT Usman Heredia Jr., DO LAB BLOOD ORDERABLES Jania l Result Performing Organization Address City/[facility] Co de Phone Number [facility] 1 [facility] [address] [place] [phone] * FRT4 - OUTSIDE LAB (10/03/2024 7:43 AM EDT) FRT4 - OUTSIDE LAB 1.00 0.75 - 1.54 ng/dL 10/04/2024 2:04 PM EDT [facility] Comment:Document delivery by Branden on behalf of [facility] 10/03/2024 7:43 AM EDT Usman Heredia Jr., DO LABORATORY Final Res ult [facility] [address] [facility] [address] [place] [phone] * MAGNESIUM (10/03/2024 7:43 AM EDT) MAGNESIUM-OUTS BETTY LAB 1.9 1.7 - 2.8 MG/DL 10/03/2024 10:40 AM EDT [facility] Comment:Document delivery by Branden on behalf of [facility] 10/03/2024 7:43 AM EDT Usman Heredia Jr., DO LAB BLOOD ORDERABLES Jania l Result Performing Organization Address [facility]/ZIP Co de Phone Number [facility] [address] [facility] [address] [place] [address] * (ABNORMAL) HEPATIC FUNCTION PANEL (10/03/2024 7:43 AM EDT) ALKALINE PHOSPHATASE-OU TSIDE LAB 135(H) 43 - 122 IU/L 10/03/2024 10:40 AM EDT [facility] Comment:Document delivery by Branden on behalf of [facility] ALT-OUTSIDE LAB 23 10 - 40 IU/L 10/03/2024 10:40 AM EDT [facility] Comment:Document delivery by Branden on behalf of [facility] AST-OUTSIDE LAB 19 3 - 42 IU/L 10/03/2024 10:40 AM EDT [facility] Comment:Document delivery by Branden on behalf of [facility] TOTAL BILIRUBIN - OUTSIDE LAB 0.8 0.1 - 1.3 MG/DL 10/03/2024 10:40 AM EDT [facility] Comment:Document delivery by Branden on behalf of [facility] BILIRUBIN, DIRECT-OUTSIDE LAB 0.1 0.0 - 0.3 MG/DL 10/03/2024 10:40 AM EDT [facility] Comment:Document delivery by Branden on behalf of [facility] TOTAL PROTEIN - OUTSIDE LAB 6.8 5.8 - 8.0 G/DL 10/03/2024 10:40 AM EDT [facility] Comment:Document delivery by Branden on behalf of [facility] ALBUMIN - OUTSIDE LAB 4.2 3.0 - 5.2 G/DL 10/03/2024 10:40 AM EDT [facility] Comment:Document delivery by Branden on behalf of [facility] 10/03/2024 7:43 AM EDT us Usman Heredia Jr., DO LAB BLOOD ORDERABLES Jania l Result [facility] [address] [facility] [address] [place] [address] documented in this encounter Advance Directives * Full Code (Latest Code Status on File) Date Activated Date Inactivated Comments 03/20/2019 9:38 PM 03/22/2019 11:10 PM This order re flects the patients wishes and were consensually agreed upon. * Full Code Date Activated Date Inactivated Comments 10/23/2014 6:40 AM 10/23/2014 6:03 PM This order ref lects the patients wishes and were consensually agreed upon. Question Answer Comments Discussion of Advance Directives occurred with: Not Discussed Does the patient have a Living Will? No Does the patient have Health Care Power of Attor josselyn? No Care Teams Hospital Nurse Relationship Specialty Start Date End Date Usman Heredia Jr., DO [address] [facility] [place] [address] PCP - General Family Medicine 06/05/16 documented as of this encounter
--- OUTSIDE RECORDS SUMMARY | 2024-10-21 16:49 | External Medical Summary | Continuity of Care Document ---
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 Name Role Phone Dusty Stokes MD Care Team Information Voice Pathologist + [phone] Problems Active Problems Provider Date Morbid obesity [...] End: Unknown Former Cigarette Smoker Cigarette Use 07/01/2024 Quit - Age 50 Tobacco Use Reviewed: 07/01/24 Never Smoked Cigars Tobacco Use Reviewed: 07/01/24 Never Smoked A Pipe Smoking Status Reviewed: 07/01/24 Never Smoked A Pipe Smokeless Tobacco 07/01/2024 Never Used Smokeless To bacco ETOH Use Denies alcohol use Recreational Drug Use Denies Drug Use Allergies and adverse reactions Description No Known Drug Allergies Medications Active Medications SIG Qnty Indications Order ing Provider Date Levothyroxine Wfripd494iwq Tablets Take One (1) Tablet By Mouth Every Day 90tabs E03.9 Usman Heredia JR, DO 09/25/2024 Mounjaro7.5mg/0.5ML Solution Auto-Inject 7.5 mg weekly x 4 weeks 6ml E11.21 Usman Heredia JR, DO 07/01/2024 Esomeprazole Nnbmeuyrh66uz Capsules DR take 1 capsule once daily for stomach 90caps K21.9 Usman Heredia JR, DO 03/11/2024 Freestyle Michael 3/Sensor/Glucose Monitoring Erubsl9[facility] as directed 1units E11.21 Usman Heredia JR, DO 05/16/2023 Terbinafine HCL1% Cream apply daily to affected areas x 2-4 weeks. 90gm B35.4 Usman Heredia JR, DO 02/15/2023 Flonase Allergy Kenvnp24jgp/Act Suspension ! suirt up each nostrol 2-3 [...] 1units Usman Heredia JR, DO 10/05/2019 Pen Warner 3/16"31G X 5 mm Misc use with insulin 4 times a day 120units Usman Heredia JR, DO 07/02/2019 Magnesium Oxide -MG Dznuvfbdox953ud Capsules 3 by mouth daily. 30caps Erlinda Cummins MD, PhD 03/27/2019 Atorvastatin Bgyohlq45az Tablets Take One (1) Tablet By Mouth Every Day 90tabs E78.2 Erlinda Cummins MD, PhD 03/26/2019 I25.10 E78.1 Contour Next One Blood Glucose StripsStrips test blood sugar before meals or as directed 100units E11.21 Usman Heredia JR, DO 03/30/2018 Ykyrexb45X Misc use to check sugars before meals or as directed 100units E11.21 Usman Heredia JR, DO 03/30/2018 Humalog Jlklehd582Aytu/ML Solution Pen-Inject inject 10 units subcutaneously 2 or 3 times daily 15ml E11.21 Usman Heredia JR, DO 01/31/2018 E11.22 Toujeo Max Eoezwhww128Mdqj/ML Solution Pen-Inject inject 60 units sq every day 12pens E11.21 Usman Heredia JR, DO 01/31/2018 E11.22 Metoprolol Omkqwhwc21jf Tablets Take 1 & 1/2 Tablets By Mouth Twice Daily 270tabs I10 Usman Heredia JR, DO 08/25/2011 Qucudvgkbg47jq Tablets Take One (1) Tabl et By Mouth Every Day 90tabs I10 Usman Heredia JR, DO 12/28/2006 Ventolin QAD554(90Base) mcg/Act Aerosol 2 puffs by mouth every 4-6 hours as needed wheezing 18gm Usman Heredia JR, DO Nasacort Hd22nqv/Act Aerosol 2 sprays each nostril once daily during allergy seasons 49.5gm Usman Heredia JR, DO Rovfcyekgxhnax5en Packet 1 packet daily 3 times a day 90units R19.7 Usman Heredia JR, DO Gftgzdbtco06tf Tablets Take One (1) Tabl et By Mouth Every Day 90tabs I10 Usman Heredia JR, DO Aihliftzn58ru Tablets ER 24HR 1 tablet by mouth every day 90tabs Usman Heredia JR, DO Caltrate 600+R5938-892wa-Lvou Tablets 1 by mouth every day Unknown Aspirin 81 Low Ccxk56ex Chewtabs 1 by mouth bid x 6 weeks. Unknown History Medications Ztznwvgn56tp/0.5ML Solution Auto-Inject 10 mg weekly x 4 [...] Code Status Date Vaccine Reaction Lot # 21443 Given 03/25/2024 Influenza Vac, Split, Preservative Free High Dose Age 65 & > [id number] 25675 Given 04/04/2023 Influenza Vacci ne High Dose 0.5ML Age 65 & > [id number] 08340 Given 02/10/2023 Moderna Sars-Co v-2 (Covid-19) Vaccine, BiValent Booster [id number] 92211 Given 04/13/2022 Influenza Vacci ne High Dose 0.5ML Age 65 & > [id number] 61545 Given 06/11/2021 Moderna Covid-1 9 Vaccine 50mcg Booster-EMR Doc Only [id number] 89910 Given 05/26/2021 Influenza Vacci ne High Dose 0.5ML Age 65 & > [id number] 05001 Given 05/26/2021 Pneumococcal Conjugate-Prevna r 13 [id number] 07206 Given 09/12/2020 Moderna Sars-Co v-2 (Cov-19) vacc,100 mcg/ 0.5 mL 12Y+EMR Doc Only [id number] 45385 Given 08/15/2020 Moderna Sars-Co v-2 (Cov-19) vacc,100 mcg/ 0.5 mL 12Y+EMR Doc Only [id number] 24558 Given 06/05/2020 Shingrix 09361 Given 2020 Influenza Virus Vaccine, Quadrivalent, Im Use [id number] 31696 Given 01/28/2020 Shingrix 74964 Given 04/16/2019 Influenza Virus Vaccine, Quadrivalent, Im Use [id number] 21966 Given 05/10/2018 Influenza Virus Vaccine, Quadrivalent, Im Use [id number] 89334 Given 01/31/2018 Pneumococcal Vaccine/Pneumova x 23 [id number] 21295 Given 03/27/2017 Influenza Virus Vaccine, Quadrivalent, Im Use [id number] 74627 Given 04/27/2016 Influenza Virus Vaccine, Quadrivalent, Im Use [id number] 34137 Given 04/17/2012 Influenza Vac, Split 6 Months And Older [id number] 74114 Given 04/17/2012 Pneumococcal Vaccine/Pneumova x 23 [id number] 11234 Given 04/19/2011 Influenza Vac, Split 6 Months And Older [id number] 46865 Given 11/04/2005 Td (Tetanus & D iphtheria) Decavac or Tenivac Age 7 & > 39670 Given 05/20/2003 Influenza Vac, Split 6 Months And Older [id number] Refused 01/01/2020 Tdap (Tetanus, diphtheria & acel. pertussis) Adacel or Boostrix [id number] Refused 01/01/2020 Shingrix 47831 Refused 12/18/2018 Tdap (Tetanus, diphtheria & acel. pertussis) Adacel or Boostrix 11048 Refused 12/18/2018 Shingrix 27321 Refused 10/03/2017 Tdap (Tetanus, diphtheria & acel. pertussis) Adacel or Boostrix 42873 Refused 07/05/2017 Zostavax-PT Supplied [id number] Refused 07/05/2017 Tdap (Tetanus, diphtheria & acel. pertussis) Adacel or Boostrix Vital Signs Date Vital Result Comment 07/01/2024 9:46am BP Systolic 144 mmHg BP Diastolic 88 mmHg BP Systolic Recheck 132 mmHg BP Diastolic Recheck 78 mmHg Body Temperature 97.8 F Heart Rate 76 /min Respiratory Rate 18 /min Weight 228.00 lb Weight 103.421 kg 03/25/2024 10:26am BP Systolic 154 mmHg BP Diastolic 78 mmHg Body Temperature 98.0 F Heart Rate 74 /min Respiratory Rate 18 /min Weight 224.00 lb Weight 101.606 kg Results Test Acquired Date Facility Test Result H/L Range Note TSH 10/03/2024 [facility] [address] [place] [address] TSH <pending> FRT4 10/03/2024 [facility] [address] [place] [address] FRT4 <pending> Magnesium 10/03/2024 [facility] [address] [place] [address] [phone] Magnesium <pending> Vitamin D 25 (Oh) 10/03/2024 [facility] [address] [place] [address] Vitamin D 25 (Oh) <pending> Cologuard 07/05/2024 [facility], [address], [address] [place] [address] Cologuard Positive Abnormal Negative 1 BMP 06/24/2024 [facility] [address] [place] [address] [phone] Glucose 153 mg/dL High 70-110 BUN 14 mg/dL 6-25 Creatinine 0.8 mg/dL 0.5-1.2 Sodium 143 mEq/L 135-145 Potassium 4.4 mEq/L 3.5-5.0 Chloride 105 mEq/L 95-107 Co-2 27 mEq/L 24-31 Calcium 9.3 mg/dL 8.5-10.6 GFR 76 ML/MIN/1.73 SQM >60 Lipid 06/24/2024 [facility] [address] [place] [address] [phone] Cholesterol 154 mg/dL 0-200 2 Triglyceride 146 mg/dL 0-150 3 HDLD 47 mg/dL See Comment 4 Measured LDL 88 mg/dL 0-130 5 Calc VLDL 29.2 mg/dL See Comment 6 Chol/HDL 3.3 RATIO See Comment 7 Non-HDL 107 mg/dL See Comment 8 Hepatic 06/24/2024 [facility] [address] [place] [address] Alk Phos 137 IU/L High 43-122 Alt(SGPT) 22 IU/L 10-40 Ast(Sgot) 21 IU/L 3-42 T.Bilirubin 1.1 mg/dL 0.1-1.3 D.Bilirubin 0.2 mg/dL 0.0-0.3 Tot.Protein 6.9 g/dL 5.8-8.0 Albumin 4.2 g/dL 3.0-5.2 CBC W/Diff 06/24/2024 [facility] [address] [place] [address] WBC 5.3 10^3/M3 3.1-9.2 RBC 5.06 10^6/M3 3.70-5.50 HGB 15.2 GR/DL 11.5-16.1 HCT 44.0 % 34.5-47.8 MCV 86.9 CUMICR 82.6-95.8 MCH 30.1 PICOGR 27.9-32.9 MCHC 34.6 % 32.6-35.4 RDW 13.7 % 11.4-14.6 PLT 348 10^3/M3 140-350 MPV 6.8 CUMICR Low 7.0-10.6 %Neut 62.6 % 40.0-75.0 %Lymph 23.6 % 17.0-45.0 %[place] 7.2 % 1.0-11.0 %Eos 5.3 % 0.0-6.0 %Baso 1.3 % 0.0-2.0 #Neut 3.3 10^3/M3 1.5-8.0 #Lymph 1.2 10^3/M3 0.8-3.2 #[place] 0.4 10^3/M3 0.0-0.8 #Eos 0.3 10^3/m3 0.0-0.4 #Baso 0.1 10^3/m3 0.0-0.2 Hba1c 06/24/2024 [facility] [address] [place] [address] [phone] A1c 6.50 % 4.70-6.50 9 TSH 06/24/2024 [facility] [address] [place] [address] [phone] TSH 0.28 uIU/mL Low 0.50-6.00 FRT4 06/24/2024 [facility] [address] [place] [address] FRT4 1.00 ng/dL 0.75-1.54 Magnesium 06/24/2024 [facility] [address] [place] [address] [phone] Magnesium 1.9 mg/dL 1.7-2.8 Vitd-25Oh 06/24/2024 [facility] [address] [place] [address] Vitd-25Oh 48 ng/mL 30-100 1 POSITIVE TEST RESULT . A positive Cologuard [...] Hutton et al, N Engl J Med 2014;370(14):0250-3443.) Cologuard may produce a false negative or false positive result (no colorectal cancer or precancerous polyp present at colonoscopy follow up). A negative Cologuard test result does not guarantee the absence of CRC or advanced adenoma (pre-cancer). The current Cologuard screening interval is every 3 years. ([place] [employer] and [place] Multi-Society Task Force). Cologuard performance data in a 10,000 patient pivotal study using colonoscopy as the reference method can be accessed at the following location: [email or web address]/results. Additional description of the Cologuard test process, warnings and precautions can be found at www.[employer].com. 2 CHOLESTEROL Less than 200mg/dl Low risk 201-239 mg/dl Borderline risk Equal to or greater 240mg/dl High risk 3 TRIGLYCERIDES Less than 150mg/dl Normal 150-199mg/dl Borderline 200-499mg/dl High Greater than 500mg/dl Very High 4 HDL <40mg/dl Elevated Risk 41-59mg/dl Risk >=60mg/dl Least Risk 5 LDL <100mg/dl Optimal 100-129mg/dl Near Optimal 130-159mg/dl Borderline High 160-189mg/dl High >=190 Very High 6 VLDL Less than 30mg/dl Normal 7 CHOL/HDL <4.0 Optimal 4.0-5.0 Borderline >6.0 High Risk 8 NON-HDL 30mg/dl higher than LDL Target 9 MEAN GLUCOSE IN mg/d L/A1c% POOR CONTROL FAIR CONTROL GOOD CONTROL EXCELLENT CONTROL 360-14 210-9 180-8 120-6 330-13 150-7 90-5 300-12 270-11 240-10 Procedures Date Code Description Status 10/03/2024 25756 Venipuncture Routine [facility] ed 08/07/2024 [id number] Colonoscopy Completed 08/01/2024 171019251 Bone Mineral Density Test Co mpleted 07/01/2024 G2211 Continuation of care e/m vis it add on Completed 07/01/2024 3078F PVRP Diastolic BP <80 mmHg C ompleted 07/01/2024 3075F PVRP Systolic BP 130 To 139 MMHG Completed 07/01/2024 3044F PVRP HGB-A1c <7.0% Completed 06/24/2024 30015 Venipuncture Routine Complet ed 03/12/2024 [id number] Mammogram Completed Medical Devices Description No Information Available Encounters Type Date Location Provider Dx Diagnosis Office Visit 07/01/2024 10:[place]a [place] He[place], DO E11.21 Type 2 diabetes mellitus with diabetic nephropathy I10 Essential (primary) hypertension E78.2 Mixed hyperlipidemia E03.9 Hypothyroidism, unsp ecified I70.0 Atherosclerosis of a tish Assessments Date Code Description Provider 10/03/2024 E11.21 Type 2 diabetes mellitus with diabetic nephropathy Lab - [place] 10/03/2024 I10 Essential (primary) hyperten rafaela Lab - [place] 10/03/2024 E78.2 Mixed hyperlipidemia [place] 10/03/2024 E03.9 Hypothyroidism, unspecified Lab - [place] 10/03/2024 E55.9 Vitamin D deficiency, unspec ified Lab - [place] 07/01/2024 E11.21 Type 2 diabetes mellitus with [...] diabetes mellitus with diabetic nephropathy Lab - [place] 06/24/2024 I10 Essential (primary) hyperten rafaela Usman Heredia JR, DO 06/24/2024 I10 Essential (primary) hyperten rafaela Lab - [place] 06/24/2024 E78.2 Mixed hyperlipidemia Usman Heredia JR, DO 06/24/2024 E78.2 Mixed hyperlipidemia Lab [place] 06/24/2024 E03.9 Hypothyroidism, unspecified Usman Heredia JR, DO 06/24/2024 E03.9 Hypothyroidism, unspecified Lab - [place] 06/24/2024 E55.9 Vitamin D deficiency, unspec ified Usman Heredia JR, DO 06/24/2024 E55.9 Vitamin D deficiency, unspec ified Lab - [place] Plan of Treatment Future Appointment(s):* 10/08/2024 11:00 am - Usman Heredia JR, DO at [place] 07/01/2024 - Usman Heredia JR, DO* E11.21 Type 2 diabetes mellitus with diabetic nephropathy* New Medication:* Mounjaro 7.5 mg/0.5ML - 7.5 mg weekly x 4 weeks * I10 Essential (primary) hypertension * E78.2 Mixed hyperlipidemia * E03.9 Hypothyroidism, unspecified * I70.0 Atherosclerosis of aorta * All* Follow up:* Follow up in 3 months for diabetic check and MCAN with labs or sooner prn. Functional Status Description No Information Available Mental Status Description No Information Available Referrals Description No Information Available
--- OUTSIDE RECORDS SUMMARY | 2024-10-21 16:49 | External Medical Summary ---
Author Name Unknown Address Unknown Organization K1C:[facility] [address] [place] [address] Laboratory Report Ordering Provider Test Date Status VINCE GARVEY 10/03/2024 07:43 Final Observation Date Value Abnormality Reference (Units ) Status Magnesium 10/03/2024 10:40 1.9 1.7-2.8 (MG/D L) Final Performing Location [facility] [address] [place] [address]
--- OUTSIDE RECORDS SUMMARY | 2024-10-21 16:49 | External Medical Summary ---
Author Name Unknown Address Unknown Organization K1C:[facility] [address] [place] [address] Laboratory Report Ordering Provider Test Date Status VINCE GARVEY 10/08/2024 11:09 Final Observation Date Value Abnormality Reference (Units ) Status Creatinine [Moles/volume] in Urine 10/08/2024 14:43 49 COMMENT (mg/dl) Final Albumin, Urine 10/08/2024 14:43 2.8 Above high normal 0.0-1.8 (MG/DL) Final *THE [employer] USES MICROALBUMIN/CREATINE RATIO :
*<30 ug/mg CREATININE IS CLASSIFIED NORMAL
*30-300 ug/mg CREATININE IS CLASSIFIED CLINICAL MICROALBUMINURIA
*>300 ug/mg CREATININE IS CLASSIFIED CLINICAL ALBUMINURIA
CLASSIFICATION OF A PATIENT SHOULD BE BASED ON TWO OF THREE ABNORMAL
RESULTS COLLECTED WITHIN A 3 TO 6 MONTH TIME FRAME*

ug/mgCREATININE 10/08/2024 14:43 57 Above high normal 0-29 (ug/mg) Final Performing Location [facility] [address] [place] [id number]
--- OUTSIDE RECORDS SUMMARY | 2024-10-21 16:49 | External Medical Summary ---
Author Name Unknown Address Unknown Organization K1C:[facility] [address] [place] [address] Laboratory Report Ordering Provider Test Date Status VINCE GARVEY 10/03/2024 07:43 Final Observation Date Value Abnormality Reference (Units ) Status 25-OH Vitamin D total 10/03/2024 11:08 49 3 0-100 (ng/mL) Final Performing Location [facility] [address] [place] [id number]
--- OUTSIDE RECORDS SUMMARY | 2024-10-21 16:49 | External Medical Summary ---
Author Name Unknown Address Unknown Organization K1C:[facility] [address] [place] [address] Laboratory Report Ordering Provider Test Date Status VINCE GARVEY 10/03/2024 07:43 Final Observation Date Value Abnormality Reference (Units ) Status TSH 10/03/2024 11:06 1.91 0.50-6.00 (uI U/mL) Final Performing Location [facility] [address] [place] [address]
--- OUTSIDE RECORDS SUMMARY | 2024-10-21 16:49 | External Medical Summary | Continuity of Care Document ---
Author Name Unknown Organization [facility] Address [address] [place] [address], [place] [address] Phone [phone] Care Team Providers Care It Security Analyst Name Role Phone Dusty Stokes MD Care Team Information English Adjunct Faculty + [phone] Problems Active Problems Provider Date Morbid obesity [...] due t o type 2 diabetes mellitus Usamn Heredia JR, DO Onset: 08/22/2023 Atherosclerosis of [...] Qnty Indications Order ing Provider Date Levothyroxine Qebyuv156zsf Tablets Take One (1) Tablet By Mouth Every Day 90tabs E03.9 Usman Heredia JR, DO 09/25/2024 Mounjaro7.5mg/0.5ML Solution Auto-Inject 7.5 mg weekly x 4 weeks 6ml E11.21 Usman Heredia JR, DO 07/01/2024 Esomeprazole Yaqsbvfll71xn Capsules DR take 1 capsule once daily for stomach 90caps K21.9 Usman Heredia JR, DO 03/11/2024 Freestyle Michael 3/Sensor/Glucose Monitoring Ukiobv8Wlfplo [facility] as directed 1units E11.21 Usman Heredia JR, DO 05/16/2023 Terbinafine HCL1% Cream apply daily to affected areas x 2-4 weeks. 90gm B35.4 Usman Heredia JR, DO 02/15/2023 Flonase Allergy Qjruda23bpf/Act Suspension ! suirt up each nostrol 2-3 [...] 1units Usman Heredia JR, DO 10/05/2019 Pen Spring 3/16"31G X 5 mm Misc use with insulin 4 times a day 120units Usman Heredia JR, DO 07/02/2019 Magnesium Oxide -MG Vlwnfhpuyq686py Capsules 3 by mouth daily. 30caps Erlinda Cummins MD, PhD 03/27/2019 Atorvastatin Isdtoov06qx Tablets Take One (1) Tablet By Mouth Every Day 90tabs E78.2 Erlinda Cummins MD, PhD 03/26/2019 I25.10 E78.1 Contour Next One Blood Glucose StripsStrips test blood sugar before meals or as directed 100units E11.21 Usman Heredia JR, DO 03/30/2018 Uyvwtby71E Misc use to check sugars before meals or as directed 100units E11.21 Usman Heredia JR, DO 03/30/2018 Humalog Dxkbwhr521Fpei/ML Solution Pen-Inject inject 10 units subcutaneously 2 or 3 times daily 15ml E11.21 Usman Heredia JR, DO 01/31/2018 E11.22 Toujeo Max Encirulm161Lczf/ML Solution Pen-Inject inject 56 units sq every day 12pens E11.21 Usman Heredia JR, DO 01/31/2018 E11.22 Metoprolol Afaydlhc53te Tablets Take 1 & 1/2 Tablets By Mouth Twice Daily 270tabs I10 Usman Heredia JR, DO 08/25/2011 Tanwnksbqb02vh Tablets Take One (1) Tabl et By Mouth Every Day 90tabs I10 Usman Heredia JR, DO 12/28/2006 Ventolin TAG623(90Base) mcg/Act Aerosol 2 puffs by mouth every 4-6 hours as needed wheezing 18gm Usman Heredia JR, DO Nasacort Of75taw/Act Aerosol 2 sprays each nostril once daily during allergy seasons 49.5gm Usman Heredia JR, DO Vgmeddkayrlbph9zp Packet 1 packet daily 3 times a day 90units R19.7 Usman Heredia JR, DO Ckufdlcpbl27tq Tablets Take One (1) Tabl et By Mouth Every Day 90tabs I10 Usman Heredia JR, DO Wwkeuztpd18do Tablets ER 24HR 1 tablet by mouth every day 90tabs Usman Heredia JR, DO Caltrate 600+M4586-634ta-Afqf Tablets 1 by mouth every day Unknown Aspirin 81 Low Uaaj60yq Chewtabs 1 by mouth bid x 6 weeks. Unknown History Medications Decdclwp96jj/0.5ML Solution Auto-Inject 10 mg weekly x 4 [...] Code Status Date Vaccine Reaction Lot # 10919 Given 03/25/2024 Influenza Vac, Split, Preservative Free High Dose Age 65 & > [id number] Given 04/04/2023 Influenza Vacci ne High Dose 0.5ML Age 65 & > [id number] 11428 Given 02/10/2023 Moderna Sars-Co v-2 (Covid-19) Vaccine, BiValent Booster [id number] 38088 Given 04/13/2022 Influenza Vacci ne High Dose 0.5ML Age 65 & > [id number] 49541 Given 06/11/2021 Moderna Covid-1 9 Vaccine 50mcg Booster-EMR Doc Only [id number] 79770 Given 05/26/2021 Influenza Vacci ne High Dose 0.5ML Age 65 & > [id number] 26013 Given 05/26/2021 Pneumococcal Conjugate-Prevna r 13 [id number] 51159 Given 09/12/2020 Moderna Sars-Co v-2 (Cov-19) vacc,100 mcg/ 0.5 mL 12Y+EMR Doc Only [id number] 68278 Given 08/15/2020 Moderna Sars-Co v-2 (Cov-19) vacc,100 mcg/ 0.5 mL 12Y+EMR Doc Only [id number] 75811 Given 06/05/2020 Shingrix 06874 Given 2020 Influenza Virus Vaccine, Quadrivalent, Im Use [id number] 82683 Given 01/28/2020 Shingrix 01890 Given 04/16/2019 Influenza Virus Vaccine, Quadrivalent, Im Use [id number] 62181 Given 05/10/2018 Influenza Virus Vaccine, Quadrivalent, Im Use [id number] 97967 Given 01/31/2018 Pneumococcal Vaccine/Pneumova x 23 [id number] 48406 Given 03/27/2017 Influenza Virus Vaccine, Quadrivalent, Im Use [id number] 45459 Given 04/27/2016 Influenza Virus Vaccine, Quadrivalent, Im Use [id number] 36067 Given 04/17/2012 Influenza Vac, Split 6 Months And Older [id number] 79856 Given 04/17/2012 Pneumococcal Vaccine/Pneumova x 23 [id number] 04403 Given 04/19/2011 Influenza Vac, Split 6 Months And Older [id number] 54287 Given 11/04/2005 Td (Tetanus & D iphtheria) Decavac or Tenivac Age 7 & > 80224 Given 05/20/2003 Influenza Vac, Split 6 Months And Older [id number] Refused 01/01/2020 Tdap (Tetanus, diphtheria & acel. pertussis) Adacel or Boostrix [id number] Refused 01/01/2020 Shingrix 13735 Refused 12/18/2018 Tdap (Tetanus, diphtheria & acel. pertussis) Adacel or Boostrix 82274 Refused 12/18/2018 Shingrix 28842 Refused 10/03/2017 Tdap (Tetanus, diphtheria & acel. pertussis) Adacel or Boostrix 72457 Refused 07/05/2017 Zostavax-PT Supplied [id number] Refused 07/05/2017 Tdap (Tetanus, diphtheria & acel. [...] Date Facility Test Result H/L Range Note Lipid 10/03/2024 [facility] [address] [place] [address] [phone] Cholesterol 155 mg/dL 0-200 1, 2 Triglyceride 207 mg/dL High 0-150 3 HDLD 46 mg/dL See Comment 4 Measured LDL 81 mg/dL 0-130 5 Calc VLDL 41.4 mg/dL See Comment 6 Chol/HDL 3.4 RATIO See Comment 7 Non-HDL 109 mg/dL See Comment 8 Hepatic 10/03/2024 [facility]. [address] [place] [address] [phone] Alk Phos 135 IU/L High 43-122 Alt(SGPT) 23 IU/L 10-40 Ast(Sgot) 19 IU/L 3-42 T.Bilirubin 0.8 mg/dL 0.1-1.3 D.Bilirubin 0.1 mg/dL 0.0-0.3 Tot.Protein 6.8 g/dL 5.8-8.0 Albumin 4.2 g/dL 3.0-5.2 TSH 10/03/2024 [facility] [address] [place] [address] [phone] TSH 1.91 uIU/mL 0.50-6.00 FRT4 10/03/2024 [facility] [address] [place] [address] [phone] FRT4 1.00 ng/dL 0.75-1.54 Magnesium 10/03/2024 [facility] [address] [place] [address] Magnesium 1.9 mg/dL 1.7-2.8 Vitd-25Oh 10/03/2024 [facility] [address] [place] [address] Vitd-25Oh 49 ng/mL 30-100 Cologuard 07/05/2024 [employer] [facility] [employer] [address] [place] [address], [address] [place] [address] Cologuard Positive Abnormal Negative 9 BMP 06/24/2024 [facility] [address] [place] [address] Glucose 153 mg/dL High 70-110 BUN 14 mg/dL 6-25 Creatinine 0.8 mg/dL 0.5-1.2 Sodium 143 mEq/L 135-145 Potassium 4.4 mEq/L 3.5-5.0 Chloride 105 mEq/L 95-107 Co-2 27 mEq/L 24-31 Calcium 9.3 mg/dL 8.5-10.6 GFR 76 ML/MIN/1.73S QM >60 Lipid 06/24/2024 [facility] [address] [place] [address] Cholesterol 154 mg/dL 0-200 10 Triglyceride 146 mg/dL 0-150 1 1 HDLD 47 mg/dL See Comment 12 Measured LDL 88 mg/dL 0-130 13 Calc VLDL 29.2 mg/dL See Comment 14 Chol/HDL 3.3 RATIO See Comment 1 5 Non-HDL 107 mg/dL See Comment 16 Hepatic 06/24/2024 [facility] [address] [place] [address] [phone] Alk Phos 137 IU/L High 43-122 Alt(SGPT) 22 IU/L 10-40 Ast(Sgot) 21 IU/L 3-42 T.Bilirubin 1.1 mg/dL 0.1-1.3 D.Bilirubin 0.2 mg/dL 0.0-0.3 Tot.Protein 6.9 g/dL 5.8-8.0 Albumin 4.2 g/dL 3.0-5.2 CBC W/Diff 06/24/2024 [facility] [address] [place], [place] [id number] WBC 5.3 10^3/M3 3.1-9.2 RBC 5.06 10^6/M3 3.70-5.50 HGB 15.2 GR/DL 11.5-16.1 HCT 44.0 % 34.5-47.8 MCV 86.9 CUMICR 82.6-95.8 MCH 30.1 PICOGR 27.9-32.9 MCHC 34.6 % 32.6-35.4 RDW 13.7 % 11.4-14.6 PLT 348 10^3/M3 140-350 MPV 6.8 CUMICR Low 7.0-10.6 %Neut 62.6 % 40.0-75.0 %Lymph 23.6 % 17.0-45.0 %[place] 7.2 % 1.0-11.0 %Eos 5.3 % 0.0-6.0 %[place] 1.3 % 0.0-2.0 #Neut 3.3 10^3/M3 1.5-8.0 #Lymph 1.2 10^3/M3 0.8-3.2 #[place] 0.4 10^3/M3 0.0-0.8 #Eos 0.3 10^3/m3 0.0-0.4 #Baso 0.1 10^3/m3 0.0-0.2 Hba1c 06/24/2024 [facility] [address] [place] [address] [phone] A1c 6.50 % 4.70-6.50 17 TSH 06/24/2024 [facility] [address] [place] [address] TSH 0.28 uIU/mL Low 0.50-6.00 FRT4 06/24/2024 [facility] [address] [place] [address] [phone] FRT4 1.00 ng/dL 0.75-1.54 Magnesium 06/24/2024 [facility] [address] [place], [place] [id number] Magnesium 1.9 mg/dL 1.7-2.8 Vitd-25Oh 06/24/2024 [facility] [address] [place] [address] [phone] Vitd-25Oh 48 ng/mL 30-100 1 We took the CBC, BMP Pt will be going to the hospital for pre op labs with a type n screen, so they will have those results faxed to use, instead of charging her t wice. 2 CHOLESTEROL Less than 200mg/dl Low risk [...] NON-HDL 30mg/dl higher than LDL Target 9 POSITIVE TEST RESULT . A positive Cologuard [...] (Ilya Tomlinson al, N Engl J Med 2014;370(14):9568-7986.) Cologuard may produce a false negative or false positive result (no colorectal cancer or precancerous polyp present at colonoscopy follow up). A negative Cologuard test result does not guarantee the absence of CRC or advanced adenoma (pre-cancer). The current Cologuard screening interval is every 3 years. ([place] [employer] and [place] Multi-Society Task Force). Cologuard performance data in a 10,000 patient pivotal study using colonoscopy as the reference method can be accessed at the following location: www.MeetMe/results. Additional description of the Cologuard test process, warnings and precautions can be found at www.[employer]Max[employer].com. 10 CHOLESTEROL Less than 200mg/dl Low risk 201-239 mg/dl Borderline risk Equal to or greater 240mg/dl High risk 11 TRIGLYCERIDES Less than 150mg/dl Normal 150-199mg/dl Borderline 200-499mg/dl High Greater than 500mg/dl Very High 12 HDL <40mg/dl Elevated Risk 41-59mg/dl Risk >=60mg/dl Least Risk 13 LDL <100mg/dl Optimal 100-129mg/dl Near Optimal 130-159mg/dl Borderline High 160-189mg/dl High >=190 Very High 14 VLDL Less than 30mg/dl Normal 15 CHOL/HDL <4.0 Optimal 4.0-5.0 Borderline >6.0 High Risk 16 NON-HDL 30mg/dl higher than LDL Target 17 MEAN GLUCOSE IN mg/d L/A1c% POOR CONTROL FAIR CONTROL GOOD CONTROL EXCELLENT CONTROL 360-14 210-9 180-8 120-6 330-13 150-7 90-5 300-12 270-11 240-10 Procedures Date Code Description Status 10/08/2024 M1371 Hemaglobin A1c Level < 7% Co mpleted 10/08/2024 3079F PVRP Diastolic BP 80-89 MMHG Completed 10/08/2024 3077F PVRP Systolic BP >/= 140 MMH G Completed 10/03/2024 07560 Venip[facility] Routine [facility] ed 08/07/2024 [id number] Colonoscopy Completed 08/01/2024 [id number] Bone Mineral Density Test Co mpleted 07/01/2024 G2211 Continuation of care e/m vis it add on Completed 07/01/2024 3078F PVRP Diastolic BP <80 mmHg C ompleted 07/01/2024 3075F PVRP Systolic BP 130 To 139 MMHG Completed 07/01/2024 3044F PVRP HGB-A1c <7.0% Completed 06/24/2024 71097 Venipuncture Routine [facility] ed 03/12/2024 [id number] Mammogram Completed Medical Devices Description No Information Available Encounters Type Date Location Provider Dx Diagnosis Office Visit 10/08/2024 11:00a Jessica Heredia JR, DO E11.21 Type 2 diabetes mellitus with diabetic nephropathy I10 Essential (primary) hypertension E78.2 Mixed hyperlipidemia E03.9 Hypothyroidism, unsp ecified E66.01 Morbid (severe) obes ity due to excess calories M17.32 Unilateral post-trau matic osteoarthritis, left knee Office Visit 07/01/2024 10:00a [facility] Usman Heredia JR, DO E11.21 Type 2 diabetes [...] diabetes mellitus with diabetic nephropathy Lab - [place] 10/03/2024 I10 Essential (primary) hyperten rafaela Lab - [facility] 10/03/2024 E78.2 Mixed hyperlipidemia Lab [place] 10/03/2024 E03.9 Hypothyroidism, unspecified Lab - [place] 10/03/2024 E55.9 Vitamin D deficiency, unspec ified Lab - [place] 07/01/2024 E11.21 Type 2 diabetes mellitus with diabetic nephropathy Usman Heredia JR, DO 07/01/2024 I10 Essential (primary) hyperten [place]faela Usman Heredia JR, DO 07/01/2024 E78.2 Mixed hyperlipidemia Usman Heredia JR, DO 07/01/2024 E03.9 Hypothyroidism, unspecified Usman Heredia JR, DO 07/01/2024 I70.0 Atherosclerosis of aorta Gurmeet neth L. Yan JR, DO 06/24/2024 E11.21 Type 2 diabetes mellitus with diabetic nephropathy Usman Heredia JR, DO 06/24/2024 E11.21 Type 2 diabetes mellitus with diabetic nephropathy Lab - [place] 06/24/2024 I10 Essential (primary) hyperten rafaela Usman Heredia JR, DO 06/24/2024 I10 Essential (primary) hyperten rafaela Lab - [place] 06/24/2024 E78.2 Mixed hyperlipidemia Usman Heredia JR, DO 06/24/2024 E78.2 Mixed hyperlipidemia Lab [place] 06/24/2024 E03.9 Hypothyroidism, unspecified Usman Heredia JR, DO 06/24/2024 E03.9 Hypothyroidism, unspecified Lab - [place] 06/24/2024 E55.9 Vitamin D deficiency, unspec ified Usman Heredia JR, DO 06/24/2024 E55.9 Vitamin D deficiency, unspec ified Lab - [place] Plan of Treatment Future Appointment(s):* 01/15/2025 8:00 am - [facility] [place] [facility] [place] * 01/22/2025 2:30 pm - Usman Heredia JR, DO at [place] 10/08/2024 - Us[facility] Heredia JR, DO* E11.21 [...] Ophthalmology needs yearly diabetic retinal eye exam C reated
--- OUTSIDE RECORDS SUMMARY | 2024-10-21 16:49 | External Medical Summary | Continuity of Care Document ---
Author Name Unknown Organization [place] Address [address] [place] [address], [place] [address] Phone [phone] Care Team Providers Care Platform Stapler Name Role Phone Dusty Stokes MD Care Team Information Hourly Team Members [phone] Problems Active Problems Provider Date Morbid obesity [...] Document: 10/06/16 - ENT Consult Ex-cigarette smoker sUman Heredia JR DO Ons et: 12/19/2017 Uninsured [...] Qnty Indications Order ing Provider Date Levothyroxine Jvfqve043ssu Tablets Take One (1) Tablet By Mouth Every Day 90tabs E03.9 Usman Heredia JR, DO 09/25/2024 Mounjaro7.5mg/0.5ML Solution Auto-Inject 7.5 mg weekly x 4 weeks 6ml E11.21 Usman Heredia JR, DO 07/01/2024 Esomeprazole Hozxynubw35so Capsules DR take 1 capsule once daily for stomach 90caps K21.9 Usman Heredia JR, DO 03/11/2024 Freestyle Michael 3/Sensor/Glucose Monitoring Amcrhm5Clntfp [facility] [place] 1units E11.21 Usman Heredia JR, DO 05/16/2023 Terbinafine HCL1% Cream apply daily to affected areas x 2-4 weeks. 90gm B35.4 Usman Heredia JR, DO 02/15/2023 Flonase Allergy Qozvts38iom/Act Suspension ! suirt up each nostrol 2-3 [...] 1units Usman Heredia JR, DO 10/05/2019 Pen [place] 3/16"31G X 5 mm Misc use with insulin 4 times a day 120units Usman Heredia JR, DO 07/02/2019 Magnesium Oxide -MG Peivridncm088jx Capsules 3 by mouth daily. 30caps Erlinda Cummins MD, PhD 03/27/2019 Atorvastatin Kdmgyyc09je Tablets Take One (1) Tablet By Mouth Every Day 90tabs E78.2 Erlinda Cummins MD, PhD 03/26/2019 I25.10 E78.1 Contour Next One Blood Glucose StripsStrips test blood sugar before meals or as directed 100units E11.21 Usman Heredia JR, DO 03/30/2018 Qesvlit99B Misc use to check sugars before meals or as directed 100units E11.21 Usman Heredia JR, DO 03/30/2018 Humalog Kuxmfxj049Yiyv/ML Solution Pen-Inject inject 10 units subcutaneously 2 or 3 times daily 15ml E11.21 Usman Heredia JR, DO 01/31/2018 E11.22 Toujeo Max Gmmlytex939Ifrj/ML Solution Pen-Inject inject 56 units sq every day 12pens E11.21 Usman Heredia JR, DO 01/31/2018 E11.22 Metoprolol Btrdoeoh33zl Tablets Take 1 & 1/2 Tablets By Mouth Twice Daily 270tabs I10 Usman Heredia JR, DO 08/25/2011 Vrdtxanbnz55qa Tablets Take One (1) Tabl et By Mouth Every Day 90tabs I10 Usman Heredia JR, DO 12/28/2006 Ventolin EJI371(90Base) mcg/Act Aerosol 2 puffs by mouth every 4-6 hours as needed wheezing 18gm Usman Heredia JR, DO Nasacort Zj21zzu/Act Aerosol 2 sprays each nostril once daily during allergy seasons 49.5gm Usman Heredia JR, DO Cxzamhnwbhskyw9wn Packet 1 packet daily 3 times a day 90units R19.7 Usman Heredia JR, DO Xxtprdkxme50ch Tablets Take One (1) Tabl et By Mouth Every Day 90tabs I10 Usman Heredia JR, DO Ihdsassbm22pu Tablets ER 24HR 1 tablet by mouth every day 90tabs Usman Heredia JR, DO Caltrate 600+Q3996-103yg-Axmq Tablets 1 by mouth every day Unknown Aspirin 81 Low Ydob98fx Chewtabs 1 by mouth bid x 6 weeks. Unknown History Medications Pxujvfkf84hm/0.5ML Solution Auto-Inject 10 mg weekly x 4 [...] Code Status Date Vaccine Reaction Lot # 36669 Given 03/25/2024 Influenza Vac, Split, Preservative Free High Dose Age 65 & > [id number] Given 04/04/2023 Influenza Vacci ne High Dose 0.5ML Age 65 & > [id number] 13878 Given 02/10/2023 Moderna Sars-Co v-2 (Covid-19) Vaccine, BiValent Booster [id number] 08707 Given 04/13/2022 Influenza Vacci ne High Dose 0.5ML Age 65 & > [id number] 36840 Given 06/11/2021 Moderna Covid-1 9 Vaccine 50mcg Booster-EMR Doc Only [id number] 05534 Given 05/26/2021 Influenza Vacci ne High Dose 0.5ML Age 65 & > [id number] 56081 Given 05/26/2021 Pneumococcal Conjugate-Prevna r 13 [id number] 02291 Given 09/12/2020 Moderna Sars-Co v-2 (Cov-19) vacc,100 mcg/ 0.5 mL 12Y+EMR Doc Only [id number] 76375 Given 08/15/2020 Moderna Sars-Co v-2 (Cov-19) vacc,100 mcg/ 0.5 mL 12Y+EMR Doc Only [id number] 71170 Given 06/05/2020 Shingrix 85410 Given 2020 Influenza Virus Vaccine, Quadrivalent, Im Use [id number] 19493 Given 01/28/2020 Shingrix 90138 Given 04/16/2019 Influenza Virus Vaccine, Quadrivalent, Im Use [id number] 51159 Given 05/10/2018 Influenza Virus Vaccine, Quadrivalent, Im Use [id number] 51923 Given 01/31/2018 Pneumococcal Vaccine/Pneumova x 23 [id number] 62219 Given 03/27/2017 Influenza Virus Vaccine, Quadrivalent, Im Use [id number] 92170 Given 04/27/2016 Influenza Virus Vaccine, Quadrivalent, Im Use [id number] 92142 Given 04/17/2012 Influenza Vac, Split 6 Months And Older [id number] 69288 Given 04/17/2012 Pneumococcal Vaccine/Pneumova x 23 [id number] 63624 Given 04/19/2011 Influenza Vac, Split 6 Months And Older [id number] 10944 Given 11/04/2005 Td (Tetanus & D iphtheria) Decavac or Tenivac Age 7 & > [id number] Given 05/20/2003 Influenza Vac, Split 6 Months And Older [id number] Refused 01/01/2020 Tdap (Tetanus, diphtheria & acel. pertussis) Adacel or Boostrix 72776 Refused 01/01/2020 Shingrix 16453 Refused 12/18/2018 Tdap (Tetanus, diphtheria & acel. pertussis) Adacel or Boostrix 13897 Refused 12/18/2018 Shingrix 47825 Refused 10/03/2017 Tdap (Tetanus, diphtheria & acel. pertussis) Adacel or Boostrix 47660 Refused 07/05/2017 Zostavax-PT Supplied [id number] Refused 07/05/2017 Tdap (Tetanus, diphtheria & acel. [...] Test Result H/L Range Note Lipid 10/03/2024 [facility] [address] [place] [address] Cholesterol 155 mg/dL 0-200 1, 2 Triglyceride 207 mg/dL High 0-150 3 HDLD 46 mg/dL See Comment 4 Measured LDL 81 mg/dL 0-130 5 Calc VLDL 41.4 mg/dL See Comment 6 Chol/HDL 3.4 RATIO See Comment 7 Non-HDL 109 mg/dL See Comment 8 Hepatic 10/03/2024 [facility]. [address] [place] [address] [phone] Alk Phos 135 IU/L High 43-122 Alt(SGPT) 23 IU/L 10-40 Ast(Sgot) 19 IU/L 3-42 T.Bilirubin 0.8 mg/dL 0.1-1.3 D.Bilirubin 0.1 mg/dL 0.0-0.3 Tot.Protein 6.8 g/dL 5.8-8.0 Albumin 4.2 g/dL 3.0-5.2 TSH 10/03/2024 [facility] [address] [place] [address] [phone] TSH 1.91 uIU/mL 0.50-6.00 FRT4 10/03/2024 [facility] [address] [place] [address] [phone] FRT4 1.00 ng/dL 0.75-1.54 Magnesium 10/03/2024 [facility] [address] [place] [address] Magnesium 1.9 mg/dL 1.7-2.8 Vitd-25Oh 10/03/2024 [facility] [address] [place] [address] Vitd-25Oh 49 ng/mL 30-100 Cologuard 07/05/2024 [facility] [address] [place] [address], [address] [place] [address] [phone] Cologuard Positive Abnormal Negative 9 BMP 06/24/2024 [facility] [address] [place] [address] Glucose 153 mg/dL High 70-110 BUN 14 mg/dL 6-25 Creatinine 0.8 mg/dL 0.5-1.2 Sodium 143 mEq/L 135-145 Potassium 4.4 mEq/L 3.5-5.0 Chloride 105 mEq/L 95-107 Co-2 27 mEq/L 24-31 Calcium 9.3 mg/dL 8.5-10.6 GFR 76 ML/MIN/1.73S QM >60 Lipid 06/24/2024 [facility] [address] [place] [address] Cholesterol 154 mg/dL 0-200 10 Triglyceride 146 mg/dL 0-150 1 1 HDLD 47 mg/dL See Comment 12 Measured LDL 88 mg/dL 0-130 13 Calc VLDL 29.2 mg/dL See Comment 14 Chol/HDL 3.3 RATIO See Comment 1 5 Non-HDL 107 mg/dL See Comment 16 Hepatic 06/24/2024 [facility] [address] [place] [address] Alk Phos 137 IU/L High 43-122 Alt(SGPT) 22 IU/L 10-40 Ast(Sgot) 21 IU/L 3-42 T.Bilirubin 1.1 mg/dL 0.1-1.3 D.Bilirubin 0.2 mg/dL 0.0-0.3 Tot.Protein 6.9 g/dL 5.8-8.0 Albumin 4.2 g/dL 3.0-5.2 CBC W/Diff 06/24/2024 [facility] [address] [place], [place] [address] [phone] WBC 5.3 10^3/M3 3.1-9.2 RBC 5.06 10^6/M3 3.70-5.50 HGB 15.2 GR/DL 11.5-16.1 HCT 44.0 % 34.5-47.8 MCV 86.9 CUMICR 82.6-95.8 MCH 30.1 PICOGR 27.9-32.9 MCHC 34.6 % 32.6-35.4 RDW 13.7 % 11.4-14.6 PLT 348 10^3/M3 140-350 MPV 6.8 CUMICR Low 7.0-10.6 %Neut 62.6 % 40.0-75.0 %Lymph 23.6 % 17.0-45.0 %Mcdowell 7.2 % 1.0-11.0 %Eos 5.3 % 0.0-6.0 %Baso 1.3 % 0.0-2.0 #Neut 3.3 10^3/M3 1.5-8.0 #Lymph 1.2 10^3/M3 0.8-3.2 #Mcdowell 0.4 10^3/M3 0.0-0.8 #Eos 0.3 10^3/m3 0.0-0.4 #Baso 0.1 10^3/m3 0.0-0.2 Hba1c 06/24/2024 [facility] [address] [place] [address] [phone] A1c 6.50 % 4.70-6.50 17 TSH 06/24/2024 [facility] [address] [place] [address] TSH 0.28 uIU/mL Low 0.50-6.00 FRT4 06/24/2024 [facility] [address] [place] [address] FRT4 1.00 ng/dL 0.75-1.54 Magnesium 06/24/2024 [facility] [address] [place], [place] [address] Magnesium 1.9 mg/dL 1.7-2.8 Vitd-25Oh 06/24/2024 [facility] [address] [place] [address] Vitd-25Oh 48 ng/mL 30-100 1 We took [...] (Ilya Tomlinson al, N Engl J Med 2014;370(14):3534-8415.) Cologuard may produce a false negative or false positive result (no colorectal cancer or precancerous polyp present at colonoscopy follow up). A negative Cologuard test result does not guarantee the absence of CRC or advanced adenoma (pre-cancer). The current Cologuard screening interval is every 3 years. ([place] [employer] and [place] Multi-Society Task Force). Cologuard performance data in a 10,000 patient pivotal study using colonoscopy as the reference method can be accessed at the following location: www.[employer]/results. Additional description of the Cologuard test process, warnings and precautions can be found at [email or web address]. 10 CHOLESTEROL Less than 200mg/dl Low risk [...] BP >/= 140 MMH G Completed 10/03/2024 68919 Venipuncture Routine [facility] ed 08/07/2024 [id number] Colonoscopy Completed 08/01/2024 [id number] Bone Mineral Density Test Co mpleted 07/01/2024 G2211 Continuation of care e/m vis it add on Completed 07/01/2024 3078F PVRP Diastolic BP <80 mmHg C ompleted 07/01/2024 3075F PVRP Systolic BP 130 To 139 MMHG Completed 07/01/2024 3044F PVRP HGB-A1c <7.0% Completed 06/24/2024 98050 Venipuncture Routine [facility] ed 03/12/2024 [id number] Mammogram Completed Medical Devices Description No Information Available Encounters Type Date Location Provider Dx Diagnosis Office Visit 10/08/2024 11:00a Jessica Heredia JR, DO E11.21 Type 2 diabetes mellitus with diabetic nephropathy I10 Essential (primary) hypertension E78.2 Mixed hyperlipidemia E03.9 Hypothyroidism, unsp ecified E66.01 Morbid (severe) obes ity due to excess calories M17.32 Unilateral post-trau matic osteoarthritis, left knee Office Visit 07/01/2024 10:00a [place] Usman Heredia JR, DO E11.21 Type 2 [...] diabetes mellitus with diabetic nephropathy Lab - [place] 10/03/2024 I10 Essential (primary) hyperten rafaela Lab - [place] 10/03/2024 E78.2 Mixed hyperlipidemia Lab [place] 10/03/2024 E03.9 Hypothyroidism, unspecified Lab - [place] 10/03/2024 E55.9 Vitamin D deficiency, unspec ified Lab - [place] 07/01/2024 E11.21 Type 2 diabetes mellitus with [...] diabetes mellitus with diabetic nephropathy Lab - [place] 06/24/2024 I10 Essential (primary) hyperten rafaela Usman Heredia JR, DO 06/24/2024 I10 Essential (primary) hyperten rafaela Lab - [place] 06/24/2024 E78.2 Mixed hyperlipidemia Usman Heredia JR, DO 06/24/2024 E78.2 Mixed hyperlipidemia Lab [place] 06/24/2024 E03.9 Hypothyroidism, unspecified Usman Heredia JR, DO 06/24/2024 E03.9 Hypothyroidism, unspecified Lab - [place] 06/24/2024 E55.9 Vitamin D deficiency, unspec ified Usmna Heredia JR, DO 06/24/2024 E55.9 Vitamin D deficiency, unspec ified Lab - [place] Plan of Treatment Future Appointment(s):* 01/15/2025 8:00 am - [facility] [place] * 01/22/2025 2:30 pm - Usman Heredia JR, DO at [place] 10/08/2024 - Usman Heredia JR, DO* E11.21 [...]
--- OUTSIDE RECORDS SUMMARY | 2024-10-21 16:49 | External Medical Summary ---
Author Name Unknown Address Unknown Organization [facility]:[address] [place] [address] Laboratory Report Ordering Provider Test Date Status VINCE GARVEY 10/03/2024 07:43 Final Observation Date Value Abnormality Reference (Units ) Status Cholesterol 10/03/2024 10:40 155 0-200 (MG/D L) Final CHOLESTEROL
Less than 2 00mg/dl Low risk
201-239 mg/dl Borderline risk
Equal to or greater 240mg/dl High risk Triglyceride 10/03/2024 10:40 207 Above high normal 0- 150 (MG/DL) Final TRIGLYCERIDES
Less than 150mg/dl Normal
150-199mg/dl Borderline
200-499mg/dl High
Greater than 500mg/dl Very High HDL 10/03/2024 10:40 46 SEE COMMENT ( MG/DL) Final HDL
<40mg/dl Elevated R isk
41-59mg/dl Risk
>=60mg/dl Least Risk Cholesterol in LDL [Mass/vol ume] in Serum or Plasma 10/03/2024 10:40 81 0-130 (MG/DL) Final LDL
<100mg/dl Optimal<b r/> 100-129mg/dl Near Optimal
130-159mg/dl Borderline High
160-189mg/dl High
>=190 Very High Cholesterol in VLDL [Mass/vo lume] in Serum or Plasma 10/03/2024 10:40 41.4 SEE COMMENT (MG/DL ) Final VLDL
Less than 30mg/dl Normal HDL 10/03/2024 10:40 3.4 SEE COMMENT ( RATIO) Final CHOL/HDL
<4.0 Optimal<b r/> 4.0-5.0 Borderline
>6.0 High Risk NON-HDL 10/03/2024 10:40 109 SEE COMMENT ( MG/DL) Final NON-HDL
30mg/dl higher than LDL Target Performing Location [facility] [address] [place] [address]
--- OUTSIDE RECORDS SUMMARY | 2024-10-21 16:49 | External Medical Summary | Continuity of Care Document ---
Author Name Unknown Organization Family Practice [facility] er, pc Address [address] [place] [address] Phone [phone] Care Team Providers Care Sr. Social Media & Mobile Manager Name Role Phone Dusty Stokes MD Care Team Information Dress Designer + [phone] Problems Active Problems Provider Date Morbid obesity [...] Qnty Indications Order ing Provider Date Levothyroxine Xsrsad141bvd Tablets Take One (1) Tablet By Mouth Every Day 90tabs E03.9 Usman Heredia JR, DO 09/25/2024 Mounjaro7.5mg/0.5ML Solution Auto-Inject 7.5 mg weekly x 4 weeks 6ml E11.21 Usman Heredia JR, DO 07/01/20[address] Caps[address] DR take 1 capsule once daily for stomach 90caps K21.9 Usman Heredia JR, DO 03/11/2024 Freestyle Michael 3/Sensor/Glucose Monitoring Sqynzp2Jabvxi [facility] as directed 1units E11.21 Usman Heredia JR, DO 05/16/2023 Terbinafine HCL1% Cream apply daily to affected areas x 2-4 weeks. 90gm B35.4 Usman Heredia JR, DO 02/15/2023 Flonase Allergy Rureni38vps/Act Suspension ! suirt up each nostrol 2-3 [...] 1units Usman Heredia JR, DO 10/05/2019 Pen [place] 3/16"31G X 5 mm Misc use with insulin 4 times a day 120units Usman Heredia JR, DO 07/02/2019 Magnesium Oxide -MG Pvbwarkiyj470hl Capsules 3 by mouth daily. 30caps Erlinda Cummins MD, PhD 03/27/2019 Atorvastatin Bbflhxs62xf Tablets Take One (1) Tablet By Mouth Every Day 90tabs E78.2 Erlinda Cummins MD, PhD 03/26/2019 I25.10 E78.1 Contour Next One Blood Glucose StripsStrips test blood sugar before meals or as directed 100units E11.21 Usman Heredia JR, DO 03/30/2018 Iqnlyvl01K Misc use to check sugars before meals or as directed 100units E11.21 Usman Heredia JR, DO 03/30/2018 Humalog Zccvzqb268Zetg/ML Solution Pen-Inject inject 10 units subcutaneously 2 or 3 times daily 15ml E11.21 Usman Heredia JR, DO 01/31/2018 E11.22 Toujeo Max Gonlcoxh484Rkse/ML Solution Pen-Inject inject 60 units sq every day 12pens E11.21 Usman Heredia JR, DO 01/31/2018 E11.22 Metoprolol Uavtkicg65pr Tablets Take 1 & 1/2 Tablets By Mouth Twice Daily 270tabs I10 Usman Heredia JR, DO 08/25/2011 Ubrxfaozuc46ju Tablets Take One (1) Tabl et By Mouth Every Day 90tabs I10 Usman Heredia JR, DO 12/28/2006 Ventolin HUR197(90Base) mcg/Act Aerosol 2 puffs by mouth every 4-6 hours as needed wheezing 18gm sUman Heredia JR, DO Nasacort Ed04bcg/Act Aerosol 2 sprays each nostril once daily during allergy seasons 49.5gm Usman Heredia JR, DO Suxznjliebehja1vp Packet 1 packet daily 3 times a day 90units R19.7 Usman Heredia JR, DO Glymvacrfb27xa Tablets Take One (1) Tabl et By Mouth Every Day 90tabs I10 Usman Heredia JR, DO Nwkwduchb86oh Tablets ER 24HR 1 tablet by mouth every day 90tabs Usman Heredia JR, DO Caltrate 600+Z3385-395ko-Zdge Tablets 1 by mouth every day Unknown Aspirin 81 Low Jvay39da Chewtabs 1 by mouth bid x 6 weeks. Unknown History Medications Zgoxjkoo20rm/0.5ML Solution Auto-Inject 10 mg weekly x 4 [...] Code Status Date Vaccine Reaction Lot # [id number] Given 03/25/2024 Influenza Vac, Split, Preservative Free High Dose Age 65 & > [id number] 40235 Given 04/04/2023 Influenza Vacci ne High Dose 0.5ML Age 65 & > [id number] 97243 Given 02/10/2023 Moderna Sars-Co v-2 (Covid-19) Vaccine, BiValent Booster [id number] 46534 Given 04/13/2022 Influenza Vacci ne High Dose 0.5ML Age 65 & > [id number] 25107 Given 06/11/2021 Moderna Covid-1 9 Vaccine 50mcg Booster-EMR Doc Only [id number] 29077 Given 05/26/2021 Influenza Vacci ne High Dose 0.5ML Age 65 & > [id number] 09466 Given 05/26/2021 Pneumococcal Conjugate-Prevna r 13 [id number] 41883 Given 09/12/2020 Moderna Sars-Co v-2 (Cov-19) vacc,100 mcg/ 0.5 mL 12Y+EMR Doc Only [id number] 14835 Given 08/15/2020 Moderna Sars-Co v-2 (Cov-19) vacc,100 mcg/ 0.5 mL 12Y+EMR Doc Only [id number] 76763 Given 06/05/2020 Shingrix 01753 Given 2020 Influenza Virus Vaccine, Quadrivalent, Im Use [id number] 86062 Given 01/28/2020 Shingrix 45348 Given 04/16/2019 Influenza Virus Vaccine, Quadrivalent, Im Use [id number] 73093 Given 05/10/2018 Influenza Virus Vaccine, Quadrivalent, Im Use [id number] 94365 Given 01/31/2018 Pneumococcal Vaccine/Pneumova x 23 [id number] 65899 Given 03/27/2017 Influenza Virus Vaccine, Quadrivalent, Im Use [id number] 59785 Given 04/27/2016 Influenza Virus Vaccine, Quadrivalent, Im Use [id number] 74759 Given 04/17/2012 Influenza Vac, Split 6 Months And Older [id number] 74507 Given 04/17/2012 Pneumococcal Vaccine/Pneumova x 23 [id number] 62379 Given 04/19/2011 Influenza Vac, Split 6 Months And Older [id number] 22123 Given 11/04/2005 Td (Tetanus & D iphtheria) Decavac or Tenivac Age 7 & > 68088 Given 05/20/2003 Influenza Vac, Split 6 Months And Older 20423 Refused 01/01/2020 Tdap (Tetanus, diphtheria & acel. pertussis) Adacel or Boostrix [id number] Refused 01/01/2020 Shingrix [id number] Refused 12/18/2018 Tdap (Tetanus, diphtheria & acel. pertussis) Adacel or Boostrix [id number] Refused 12/18/2018 Shingrix 29837 Refused 10/03/2017 Tdap (Tetanus, diphtheria & acel. pertussis) Adacel or Boostrix 41503 Refused 07/05/2017 Zostavax-PT Supplied [id number] Refused 07/05/2017 Tdap (Tetanus, diphtheria & acel. [...] Date Facility Test Result H/L Range Note Hepatic 10/03/2024 [facility]. [address] [place] [address] Alk Phos 135 IU/L High 43-122 1 Alt(SGPT) 23 IU/L 10-40 Ast(Sgot) 19 IU/L 3-42 T.Bilirubin 0.8 mg/dL 0.1-1.3 D.Bilirubin 0.1 mg/dL 0.0-0.3 Tot.Protein 6.8 g/dL 5.8-8.0 Albumin 4.2 g/dL 3.0-5.2 TSH 10/03/2024 [facility]. [address] [place] [address] [phone] TSH 1.91 uIU/mL 0.50-6.00 FRT4 10/03/2024 [facility]. [address] [place] [address] [phone] FRT4 1.00 ng/dL 0.75-1.54 Magnesium 10/03/2024 [facility]. [address] [place] [address] [phone] Magnesium 1.9 mg/dL 1.7-2.8 Vitd-25Oh 10/03/2024 [facility]. [address] [place] [address] Vitd-25Oh 49 ng/mL 30-100 Lipid 10/03/2024 [facility]. [address] [place] [address] Cholesterol 155 mg/dL 0-200 2 Triglyceride 207 mg/dL High 0-150 3 HDLD 46 mg/dL See Comment 4 Measured LDL 81 mg/dL 0-130 5 Calc VLDL 41.4 mg/dL See Comment 6 Chol/HDL 3.4 RATIO See Comment 7 Non-HDL 109 mg/dL See Comment 8 Cologuard 07/05/2024 [place] [facility] [facility] [facility], [address] [place] [address] Cologuard Positive Abnormal Negative 9 BMP 06/24/2024 [facility]. [address] [place] [address] Glucose 153 mg/dL High 70-110 BUN 14 mg/dL 6-25 Creatinine 0.8 mg/dL 0.5-1.2 Sodium 143 mEq/L 135-145 Potassium 4.4 mEq/L 3.5-5.0 Chloride 105 mEq/L 95-107 Co-2 27 mEq/L 24-31 Calcium 9.3 mg/dL 8.5-10.6 GFR 76 ML/MIN/1.73S QM >60 Lipid 06/24/2024 [facility]. [address] [place] [address] Cholesterol 154 mg/dL 0-200 10 Triglyceride 146 mg/dL 0-150 1 1 HDLD 47 mg/dL See Comment 12 Measured LDL 88 mg/dL 0-130 13 Calc VLDL 29.2 mg/dL See Comment 14 Chol/HDL 3.3 RATIO See Comment 1 5 Non-HDL 107 mg/dL See Comment 16 Hepatic 06/24/2024 [facility]. [address] [place] [address] [phone] Alk Phos 137 IU/L High 43-122 Alt(SGPT) 22 IU/L 10-40 Ast(Sgot) 21 IU/L 3-42 T.Bilirubin 1.1 mg/dL 0.1-1.3 D.Bilirubin 0.2 mg/dL 0.0-0.3 Tot.Protein 6.9 g/dL 5.8-8.0 Albumin 4.2 g/dL 3.0-5.2 CBC W/Diff 06/24/2024 [facility]. [address] [place] [address] WBC 5.3 10^3/M3 3.1-9.2 RBC 5.06 10^6/M3 3.70-5.50 HGB 15.2 GR/DL 11.5-16.1 HCT 44.0 % 34.5-47.8 MCV 86.9 CUMICR 82.6-95.8 MCH 30.1 PICOGR 27.9-32.9 MCHC 34.6 % 32.6-35.4 RDW 13.7 % 11.4-14.6 PLT 348 10^3/M3 140-350 MPV 6.8 CUMICR Low 7.0-10.6 %Neut 62.6 % 40.0-75.0 %Lymph 23.6 % 17.0-45.0 %[place] 7.2 % 1.0-11.0 %Eos 5.3 % 0.0-6.0 %Baso 1.3 % 0.0-2.0 #Neut 3.3 10^3/M3 1.5-8.0 #Lymph 1.2 10^3/M3 0.8-3.2 #[place] 0.4 10^3/M3 0.0-0.8 #Eos 0.3 10^3/m3 0.0-0.4 #Baso 0.1 10^3/m3 0.0-0.2 Hba1c 06/24/2024 [facility]. [address] [place] [address] [phone] A1c 6.50 % 4.70-6.50 17 TSH 06/24/2024 [facility]. [address] [place] [address] [phone] TSH 0.28 uIU/mL Low 0.50-6.00 FRT4 06/24/2024 [facility]. [address] [place] [address] [phone] FRT4 1.00 ng/dL 0.75-1.54 Magnesium 06/24/2024 [facility]. [address] [place] [address] Magnesium 1.9 mg/dL 1.7-2.8 Vitd-25Oh 06/24/2024 [facility]. [address] [place], [place] [address] [phone] Vitd-25Oh 48 ng/mL 30-100 1 We [...] screened with both Cologuard and colonoscopy. (Ilya Fontana. et al, N Engl J Med 2014;370(14):7838-3623.) Cologuard may produce a false negative or false positive result (no colorectal cancer or precancerous polyp present at colonoscopy follow up). A negative Cologuard test result does not guarantee the absence of CRC or advanced adenoma (pre-cancer). The current Cologuard screening interval is every 3 years. ([place] [employer] and U.S. Multi-Society Task Force). Cologuard performance data in a 10,000 patient pivotal study using colonoscopy as the reference method can be accessed at the following location: www.Intelomed/results. Additional description of the Cologuard test process, warnings and precautions can be found at www.cologuard.com. 10 CHOLESTEROL Less than 200mg/dl Low risk [...] 240-10 Procedures Date Code Description Status 10/03/2024 68149 Venipuncture Routine [facility] ed 08/07/2024 72227694 Colonoscopy Completed 08/01/2024 565235703 Bone Mineral Density Test Co mpleted 07/01/2024 G2211 Continuation of care e/m vis it add on Completed 07/01/2024 3078F PVRP Diastolic BP <80 mmHg C ompleted 07/01/2024 3075F PVRP Systolic BP 130 To 139 MMHG Completed 07/01/2024 3044F PVRP HGB-A1c <7.0% Completed 06/24/2024 44776 Venipuncture Routine [facility] ed 03/12/2024 [id number] Mammogram Completed Medical Devices Description No Information Available Encounters Type Date Location Provider Dx Diagnosis Office Visit 07/01/2024 10:00a Jessica Heredia JR, E11.21 Type 2 diabetes mellitus with diabetic nephropathy I10 Essential (primary) hypertension E78.2 Mixed hyperlipidemia E03.9 Hypothyroidism, unsp ecified I70.0 Atherosclerosis of a tish Assessments Date Code Description Provider 10/03/2024 E11.21 Type 2 diabetes mellitus with diabetic nephropathy Lab - [facility] 10/03/2024 I10 Essential (primary) hyperten rafaela Lab - [place] 10/03/2024 E78.2 Mixed hyperlipidemia Lab - [place] 10/03/2024 E03.9 Hypothyroidism, unspecified Lab - [place] 10/03/2024 E55.9 Vitamin D deficiency, unspec ified Lab - [place] 07/01/2024 E11.21 Type 2 diabetes mellitus with [...] diabetes mellitus with diabetic nephropathy Lab - [place] 06/24/2024 I10 Essential (primary) hyperten rafaela Usman Heredia JR, DO 06/24/2024 I10 Essential (primary) hyperten rafaela Lab - [place] 06/24/2024 E78.2 Mixed hyperlipidemia Usman Heredia JR, DO 06/24/2024 E78.2 Mixed hyperlipidemia Lab - [place] 06/24/2024 E03.9 Hypothyroidism, unspecified Usman Heredia JR, DO 06/24/2024 E03.9 Hypothyroidism, unspecified Lab - [place] 06/24/2024 E55.9 Vitamin D deficiency, unspec ified Usman Heredia JR, DO 06/24/2024 E55.9 Vitamin D deficiency, unspec ified Lab - [place] Plan of Treatment Future Appointment(s):* 10/08/2024 11:00 am - Usman Heredia JR, DO at [place] 07/01/2024 - Usman Heredia JR, DO* E11.21 [...]
--- OUTSIDE RECORDS SUMMARY | 2024-10-21 16:49 | External Medical Summary ---
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 + [phone] Problems Active Problems Provider Date Morbid obesity [...] - Cardiology Consult Sensorineural hearing loss, bilateral sUman Heredia JR DO Onset: 12/19/2017 Note: per [...] Qnty Indications Order ing Provider Date Levothyroxine Lpqmhs508pcx Tablets Take One (1) Tablet By Mouth Every Day 90tabs E03.9 Usman Heredia JR, DO 09/25/2024 Mounjaro7.5mg/0.5ML Solution Auto-Inject 7.5 mg weekly x 4 weeks 6ml E11.21 Usman Heredia JR, DO 07/01/2024 Esomeprazole C[address]opqini80pj Capsules DR take 1 capsule once daily for stomach 90caps K21.9 Usman Heredia JR, DO 03/11/2024 Freestyle Michael 3/Sensor/Glucose Monitoring Dfkjup9Eyowqe [facility] as directed 1units E11.21 Usman Heredia JR, DO 05/16/2023 Terbinafine HCL1% Cream apply daily to affected areas x 2-4 weeks. 90gm B35.4 Usman Heredia JR, DO 02/15/2023 Flonase Allergy Mdcsth03nlo/Act Suspension ! suirt up each nostrol 2-3 [...] Usman Heredia JR, DO 10/05/2019 Pen [place] 3/16"31G X 5 mm Misc use with insulin 4 times a day 120units Usman Heredia JR, DO 07/02/2019 Magnesium Oxide -MG Svhxvfoxvd849lb Capsules 3 by mouth daily. 30caps Erlinda Cummins MD, PhD 03/27/2019 Atorvastatin Pfnyguq40cn Tablets Take One (1) Tablet By Mouth Every Day 90tabs E78.2 Erlinda Cummins MD, PhD 03/26/2019 I25.10 E78.1 Contour Next One Blood Glucose StripsStrips test blood sugar before meals or as directed 100units E11.21 Usman Heredia JR, DO 03/30/2018 Fqigfku79Y Misc use to check sugars before meals or as directed 100units E11.21 Usman Heredia JR, DO 03/30/2018 Humalog Ijkchkj894Vtqu/ML Solution Pen-Inject inject 10 units subcutaneously 2 or 3 times daily 15ml E11.21 Usman Heredia JR, DO 01/31/2018 E11.22 Toujeo Max Xblqggix815Jjbs/ML Solution Pen-Inject inject 60 units sq every day 12pens E11.21 Usman Heredia JR, DO 01/31/2018 E11.22 Metoprolol Dhmomjvn96rt Tablets Take 1 & 1/2 Tablets By Mouth Twice Daily 270tabs I10 Usman Heredia JR, DO 08/25/2011 Fonbdmfuzk56ce Tablets Take One (1) Tabl et By Mouth Every Day 90tabs I10 Usman Heredia JR, DO 12/28/2006 Ventolin RGS459(90Base) mcg/Act Aerosol 2 puffs by mouth every 4-6 hours as needed wheezing 18gm Usman Heredia JR, DO Nasacort Wo49iyx/Act Aerosol 2 sprays each nostril once daily during allergy seasons 49.5gm Usman Heredia JR, DO Pznhxgrecjcvue6jx Packet 1 packet daily 3 times a day 90units R19.7 Usman Heredia JR, DO Xanorcikop31wo Tablets Take One (1) Tabl et By Mouth Every Day 90tabs I10 Usman Heredia JR, DO Xttwdfojh10pm Tablets ER 24HR 1 tablet by mouth every day 90tabs Usman Heredia JR, DO Caltrate 600+I7810-420lb-Evcj Tablets 1 by mouth every day Unknown Aspirin 81 Low Fsnk92xn Chewtabs 1 by mouth bid x 6 weeks. Unknown History Medications Yzyfbhvr66nq/0.5ML Solution Auto-Inject 10 mg weekly x 4 [...] Code Status Date Vaccine Reaction Lot # [id number] Given 03/25/2024 Influenza Vac, Split, Preservative Free High Dose Age 65 & > [id number] 84626 Given 04/04/2023 Influenza Vacci ne High Dose 0.5ML Age 65 & > [id number] 29395 Given 02/10/2023 Moderna Sars-Co v-2 (Covid-19) Vaccine, BiValent Booster [id number] 99482 Given 04/13/2022 Influenza Vacci ne High Dose 0.5ML Age 65 & > [id number] 07377 Given 06/11/2021 Moderna Covid-1 9 Vaccine 50mcg Booster-EMR Doc Only [id number] 74413 Given 05/26/2021 Influenza Vacci ne High Dose 0.5ML Age 65 & > [id number] 43505 Given 05/26/2021 Pneumococcal Conjugate-Prevna r 13 [id number] 76521 Given 09/12/2020 Moderna Sars-Co v-2 (Cov-19) vacc,100 mcg/ 0.5 mL 12Y+EMR Doc Only [id number] 00292 Given 08/15/2020 Moderna Sars-Co v-2 (Cov-19) vacc,100 mcg/ 0.5 mL 12Y+EMR Doc Only [id number] 66021 Given 06/05/2020 Shingrix 99239 Given 2020 Influenza Virus Vaccine, Quadrivalent, Im Use [id number] 15749 Given 01/28/2020 Shingrix 59288 Given 04/16/2019 Influenza Virus Vaccine, Quadrivalent, Im Use [id number] 20259 Given 05/10/2018 Influenza Virus Vaccine, Quadrivalent, Im Use [id number] 99518 Given 01/31/2018 Pneumococcal Vaccine/Pneumova x 23 [id number] 85441 Given 03/27/2017 Influenza Virus Vaccine, Quadrivalent, Im Use [id number] 73635 Given 04/27/2016 Influenza Virus Vaccine, Quadrivalent, Im Use [id number] 04059 Given 04/17/2012 Influenza Vac, Split 6 Months And Older [id number] 45269 Given 04/17/2012 Pneumococcal Vaccine/Pneumova x 23 [id number] 92633 Given 04/19/2011 Influenza Vac, Split 6 Months And Older [id number] 25531 Given 11/04/2005 Td (Tetanus & D iphtheria) Decavac or Tenivac Age 7 & > 33170 Given 05/20/2003 Influenza Vac, Split 6 Months And Older 64142 Refused 01/01/2020 Tdap (Tetanus, diphtheria & acel. pertussis) Adacel or Boostrix 27630 Refused 01/01/2020 Shingrix 99412 Refused 12/18/2018 Tdap (Tetanus, diphtheria & acel. pertussis) Adacel or Boostrix 83898 Refused 12/18/2018 Shingrix 40631 Refused 10/03/2017 Tdap (Tetanus, diphtheria & acel. pertussis) Adacel or Boostrix 33333 Refused 07/05/2017 Zostavax-PT Supplied [id number] Refused 07/05/2017 Tdap (Tetanus, diphtheria & acel. [...] Test Result H/L Range Note TSH 10/03/2024 [facility]. [address] [place] [address] TSH <pending> FRT4 10/03/2024 [facility]. [address] [place] [address] [phone] FRT4 <pending> Magnesium 10/03/2024 [facility]. [address] [place] [address] [phone] Magnesium <pending> Vitamin D 25 (Oh) 10/03/2024 [facility]. [address] [place] [address] Vitamin D 25 (Oh) <pending> Cologuard 07/05/2024 [facility], [address], [address] [place] [address] Cologuard Positive Abnormal Negative 1 BMP 06/24/2024 [facility]. [address] [place] [address] Glucose 153 mg/dL High 70-110 BUN 14 mg/dL 6-25 Creatinine 0.8 mg/dL 0.5-1.2 Sodium 143 mEq/L 135-145 Potassium 4.4 mEq/L 3.5-5.0 Chloride 105 mEq/L 95-107 Co-2 27 mEq/L 24-31 Calcium 9.3 mg/dL 8.5-10.6 GFR 76 ML/MIN/1.73 SQM >60 Lipid 06/24/2024 [facility]. [address] [place] [address] [phone] Cholesterol 154 mg/dL 0-200 2 Triglyceride 146 mg/dL 0-150 3 HDLD 47 mg/dL See Comment 4 Measured LDL 88 mg/dL 0-130 5 Calc VLDL 29.2 mg/dL See Comment 6 Chol/HDL 3.3 RATIO See Comment 7 Non-HDL 107 mg/dL See Comment 8 Hepatic 06/24/2024 [facility]. [address] [place] [address] [phone] Alk Phos 137 IU/L High 43-122 Alt(SGPT) 22 IU/L 10-40 Ast(Sgot) 21 IU/L 3-42 T.Bilirubin 1.1 mg/dL 0.1-1.3 D.Bilirubin 0.2 mg/dL 0.0-0.3 Tot.Protein 6.9 g/dL 5.8-8.0 Albumin 4.2 g/dL 3.0-5.2 CBC W/Diff 06/24/2024 [facility]. [address] [place] [address] WBC 5.3 10^3/M3 3.1-9.2 RBC 5.06 10^6/M3 3.70-5.50 HGB 15.2 GR/DL 11.5-16.1 HCT 44.0 % 34.5-47.8 MCV 86.9 CUMICR 82.6-95.8 MCH 30.1 PICOGR 27.9-32.9 MCHC 34.6 % 32.6-35.4 RDW 13.7 % 11.4-14.6 PLT 348 10^3/M3 140-350 MPV 6.8 CUMICR Low 7.0-10.6 %Neut 62.6 % 40.0-75.0 %Lymph 23.6 % 17.0-45.0 %[place] 7.2 % 1.0-11.0 %Eos 5.3 % 0.0-6.0 %Baso 1.3 % 0.0-2.0 #Neut 3.3 10^3/M3 1.5-8.0 #Lymph 1.2 10^3/M3 0.8-3.2 #[place] 0.4 10^3/M3 0.0-0.8 #Eos 0.3 10^3/m3 0.0-0.4 #Baso 0.1 10^3/m3 0.0-0.2 Hba1c 06/24/2024 [facility]. [address] [place] [address] A1c 6.50 % 4.70-6.50 9 TSH 06/24/2024 [facility]. [address] [place] [address] TSH 0.28 uIU/mL Low 0.50-6.00 FRT4 06/24/2024 [facility]. [address] [place] [address] [phone] FRT4 1.00 ng/dL 0.75-1.54 Magnesium 06/24/2024 [facility]. [address] [place] [address] Magnesium 1.9 mg/dL 1.7-2.8 Vitd-25Oh 06/24/2024 [facility]. [address] [place] [address] Vitd-25Oh 48 ng/mL 30-100 1 POSITIVE TEST [...] Hutton et al, N Engl J Med 2014;370(14):4658-7886.) Cologuard may produce a false negative or false positive result (no colorectal cancer or precancerous polyp present at colonoscopy follow up). A negative Cologuard test result does not guarantee the absence of CRC or advanced adenoma (pre-cancer). The current Cologuard screening interval is every 3 years. ([place] [employer] and U.S. Multi-Society Task Force). Cologuard performance data in a 10,000 patient pivotal study using colonoscopy as the reference method can be accessed at the following location: www.[employer] 1.CSS99/results. Additional description of the Cologuard test process, warnings and precautions can be found at [email or web address] [email or web address]. 2 CHOLESTEROL Less than 200mg/dl Low risk [...] 240-10 Procedures Date Code Description Status 10/03/2024 77750 Venipuncture Routine [facility] ed 08/07/2024 72057698 Colonoscopy Completed 08/01/2024 [id number] Bone Mineral Density Test Co mpleted 07/01/2024 G2211 Continuation of care e/m vis it add on Completed 07/01/2024 3078F PVRP Diastolic BP <80 mmHg C ompleted 07/01/2024 3075F PVRP Systolic BP 130 To 139 MMHG Completed 07/01/2024 3044F PVRP HGB-A1c <7.0% Completed 06/24/2024 73654 Venipuncture Routine Complet ed 03/12/2024 [id number] Mammogram Completed Medical Devices Description No Information Available Encounters Type Date Location Provider Dx Diagnosis Office Visit 07/01/2024 10:00a [place] [facility], DO E11.21 Type 2 diabetes mellitus with diabetic nephropathy I10 Essential (primary) hypertension E78.2 Mixed hyperlipidemia E03.9 Hypothyroidism, unsp ecified I70.0 Atherosclerosis of a tish Assessments Date Code Description Provider 10/03/2024 E11.21 Type 2 diabetes mellitus with diabetic nephropathy Lab - [place] 10/03/2024 I10 Essential (primary) hyperten rafaela Lab - [place] 10/03/2024 E78.2 Mixed hyperlipidemia Lab - [place] 10/03/2024 E03.9 Hypothyroidism, unspecified Lab - [place] 10/03/2024 E55.9 Vitamin D deficiency, unspec ified Lab - [place] 07/01/2024 E11.21 Type 2 diabetes mellitus with [...] diabetes mellitus with diabetic nephropathy Lab - [place] 06/24/2024 I10 Essential (primary) hyperten rafaela Usman Heredia JR, DO 06/24/2024 I10 Essential (primary) hyperten rafaela Lab - [place] 06/24/2024 E78.2 Mixed hyperlipidemia Usman Heredia JR, DO 06/24/2024 E78.2 Mixed hyperlipidemia Lab - [place] 06/24/2024 E03.9 Hypothyroidism, unspecified Usman Heredia JR, DO 06/24/2024 E03.9 Hypothyroidism, unspecified Lab - [place] 06/24/2024 E55.9 Vitamin D deficiency, unspec ified Usman Heredia JR, DO 06/24/2024 E55.9 Vitamin D deficiency, unspec ified Lab - [place] Plan of Treatment Future Appointment(s):* 10/08/2024 11:00 am - Usman Heredia JR, DO at [place] 07/01/2024 - Usman Heredia JR, DO* E11.21 [...]
--- OUTSIDE RECORDS SUMMARY | 2024-10-21 16:49 | External Medical Summary ---
Author Name Unknown Address Unknown Organization K1C:[facility] [address] [place] [id number] Laboratory Report Ordering Provider Test Date Status VINCE GARVEY 10/03/2024 07:43 Final Observation Date Value Abnormality Reference (Units ) Status Alk Phos 10/03/2024 10:40 135 Above high normal 43-122 (IU/L) Final ALT (Alanine aminotransferase) 10/03/2024 10:40 23 10-40 (IU/L) Final AST (Aspartate aminotransferase) 10/03/2024 10:40 19 3-42 (IU/L) Final Bilirubin, Total 10/03/2024 10:40 0.8 0.1-1.3 (MG/DL) Final Bilirubin, Direct 10/03/2024 10:40 0.1 0.0-0.3 (MG/DL) Final Protein 10/03/2024 10:40 6.8 5.8-8.0 (G/DL) Final Albumin 10/03/2024 10:40 4.2 3.0-5.2 (G/DL) Final Performing Location [facility] [address] [place] [id number]
--- OUTSIDE RECORDS SUMMARY | 2024-10-21 16:49 | External Medical Summary ---
Author Name Unknown Address Unknown Organization [email or web address] [address] [place] [id number] Laboratory Report Ordering Provider Test Date Status VINCE GARVEY 10/03/2024 07:43 Final Observation Date Value Abnormality Reference (Units ) Status T4, Free 10/04/2024 14:04 1.00 0.75-1.54 (ng /dL) Final Performing Location [facility] [address] [place] [id number]
[2024-10-21] MEDS: INSULIN ASPART PER UNIT CHARGE SC SCH (17:19)
[2024-10-21] MEDS: DOCUSATE SODIUM 100 MG CAP PO SCH (20:07)
[2024-10-21] MEDS: ASPIRIN 81 MG ECTAB PO SCH (20:08)
[2024-10-21] MEDS: CALCIUM 600MG + VIT D 400 IU TAB PO SCH (20:08)
[2024-10-21] MEDS: METOPROLOL TARTRATE 25 MG TAB PO SCH (20:09)
[2024-10-21] MEDS: SENNA 8.6 MG TAB PO SCH (20:10)
[2024-10-21] MEDS: PSYLLIUM or GUAR GUM FIBER 4GM PACKET PO SCH (20:10)
[2024-10-21] MEDS: ceFAZolin 1000MG 1,000 MG/7.5 ML SYR IV SCH (20:11)
[2024-10-21] MEDS ORDERED: NON-FORMULARY MEDICATION (Calcium Carbonate-Vitamin D3 [Caltrate 600 Plus D] 600 mg (1,500 PO SCH (21:00)
[2024-10-21] MEDS: LANTUS PER UNIT CHARGE SC SCH (21:21)
[2024-10-22 00:55] VITALS: TEMP 97.7
[2024-10-22] MEDS: LEVOTHYROXINE SODIUM 175 MCG TABLET PO SCH (06:38)
--- NOTE | 2024-10-22 07:06 | Orthopedic Progress Note ---
Date of Service October 22, 2024 Assessment & Plan (1) Status post revision of total replacement of left knee: Overall she is doing very well. She is not having much pain in the left knee. She will be seen by physical therapy today for ambulation and range of motion exercises. The nursing staff can change her dressing after physical therapy. She can be discharged to home later today. She will follow-up with orthopedics in 2 weeks. 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 Overall she is doing very well. She is not having much pain in the left knee. She says she already notices a difference. She has been up and ambulating to the bathroom. She has no complaints.. Review of Systems All systems reviewed & are unremarkable except as noted in HPI & below. Physical Exam On physical exam of the left knee, the dressing is clean and dry. Her leg is out full extension. She has active dorsiflexion plantarflexion of her left ankle.. Results & Data Results & Data Laboratory Results . Diagnostic Findings Postoperative x-rays of the left knee show the prosthesis to be in anatomic alignment without any evidence of fracture, dislocation, or loosening.. PG Care Time/CCT Total # of Minutes Spent Total Time Spent with Patient: Total time spent is greater than 50% in coordination of care (as documented) at patient's floor/unit and/or counseling patient: Coding Level of Care Code 72396 Post Operative Follow-Up Diagnoses Status post revision of total replacement of left knee Z96.652
--- NOTE | 2024-10-22 07:07 | Discharge Summary ---
Date of Service October 22, 2024 Principal Diagnosis Same as "Discharge Diagnosis" noted below under Discharge Instructions. Discharge Exam On physical exam of the left knee, the dressing is clean and dry. Her leg is out full extension. She has active dorsiflexion plantarflexion of her left ankle.. Discharge Data Procedures Performed Operation Date: 10/21/24 12:00 Actual Procedures p Partial Revision Left Total Knee Arthroplasty(Left) - Kana Lerma DO Ordered Studies 10/21/24 05:00 US - OR guided needle placemen Routine Hospital Course (1) Status post revision of total replacement of left knee: On October 21, 2024 Ananya arrived at [facility] and underwent a revision left knee replacement without complication. She had a spinal anesthetic. Postoperatively, she was started on aspirin for DVT prophylaxis and transferred to the general orthopedic floors. Her hospital course was uneventful. On postop day #1, her vital signs were stable and her pain was well-controlled. She was able to participate well with physical therapy doing ambulation and range of motion exercises. She was then discharged to home. She will follow-up with orthopedics in 2 weeks. PG Care Time/CCT Total # of Minutes Spent Total Time Spent with Patient: Total time spent is greater than 50% in coordination of care (as documented) at patient's floor/unit and/or counseling patient: Discharge Plan Discharge Items Patient Disposition: Home - Self-Care Reason For Visit: Painful Left Total Knee Arthroplasty Discharge Diagnosis: Revision left knee replacement Activity: Per Instructions section Non-emergency contact: Surgeon Call non-emergency contact if: your wound has increased redness and your wound has increased drainage Follow-up/Referrals: Usman Heredia [Primary Care Provider] - Diet: Regular Addtl Attending Provider Instructions: Activity and Therapy Recommendations: * If you are using [facility] then therapy will be provided at your home until they feel you have accomplished all of your goals. * If you are using [facility] then Physical Therapy will be provided until they feel you are ready to start Outpatient Physical Therapy. * If you are not using home therapy then Outpatient Physical Therapy should start about 3-5 days from your day of surgery. Therapy will last about 6-10 weeks * It is important not to put a pillow under your knee when you are relaxing or sleeping. It is just as important to make sure you are getting your knee perfectly straight as it is to regain your knee bend. * You were shown a series of exercises in the hospital. Do these exercises three times each day including the exercises you were shown in physical therapy. * Get up and walk several times each day. For the first four weeks, try not to stand or walk for more than one hour at a time. If you do stand or walk for more than one hour, you will not hurt anything, but your leg will likely swell. * As you feel comfortable, you may change from the walker or crutches to a cane and then to independent walking. Medications: * Narcotic You will likely be sent home from the hospital with a prescription for the narcotic pain medication that worked best throughout your stay. * Cefadroxil -take the antibiotic twice a day for 10 days to help prevent infection. * Aspirin Most patients will be required to take Aspirin 81mg twice a day for 6 weeks after surgery. This is obtained [id number] and a prescription is not necessary. * Other medications may be prescribed for specific circumstances. If you have any questions, please call the office at . * Resume previous home medications unless otherwise instructed TEDs/Elastic Stockings: The white elastic stockings help limit swelling and prevent blood clots from forming in your legs.~ The more you wear them, the more they work. Wear them for 2 weeks. Dressing Care: The dressing can be changed after physical therapy on postop day #1. Daily dry dressing changes for a few days, especially if the incision is still draining some. If the incision is not draining then you may leave the chapincito open to air. If there is a little bit of drainage or if the chapincito are getting stuck on your clothing then cover the incision with a dry dressing. The chapincito will be removed at your 2 week follow-up appointment. Showering: You may shower 5 days from the day of surgery as long as the incision is no longer draining. You may shower with the chapincito exposed. Let soapy water run over the chapincito and pat them dry. Do not scrub or soak the incision. Diet: You may resume your previous diet. Things To Watch For: * Drainage from the incision site that occurs more than one week after your surgery. * Increased redness at the incision site. * Fever above 102 degrees Fahrenheit. * Unusual chest pain or shortness of breath. * Call [facility] at with any of the above problems Follow-Up Visit: Follow-up with Dr. Lerma's office 2-3 weeks after your day of surgery. We will remove your chapincito and answer any questions. If you have any additional questions or concerns, Dr Lerma is usually in the office at the same time and will be available An appointment was probably scheduled when you signed-up for surgery in the office. If you have any questions call Office Instructions: More detailed instructions as well as Frequently Asked Questions were provided in a folder by our office when you signed-up for surgery. Please review these instructions when you get home. If you have any further questions or concerns, please feel free to call the office at [phone] Pending Studies at Discharge: No Stand-Alone Forms: My [facility] Medications and DC Order Prescriptions: New cefadroxil 500 mg capsule 500 mg PO BID 10 Days Qty: 20 0RF oxycodone 5 mg tablet 5 mg PO Q6H PRN (Reason: pain) Qty: 30 0RF Continued tramadol 50 mg tablet 50 mg PO Q8H PRN (Reason: pain) Qty: 30 0RF mirabegron [Myrbetriq] 50 mg tablet extended release 24 hr 50 mg PO QAM furosemide 40 mg Tablet 40 mg PO QAM atorvastatin [Lipitor] 40 mg Tablet 40 mg PO QAM ferrous sulfate [iron] 325 mg (65 mg iron) Tablet 325 mg PO QAM esomeprazole magnesium [Nexium] 40 mg Capsule,Delayed Release(Dr/Ec) 40 mg PO QAM albuterol sulfate [Ventolin HFA] 90 mcg/actuation Hfa Aerosol Inhaler 2 puff INHALATION QID PRN (Reason: Shortness Of Breath) lisinopril 40 mg Tablet 40 mg PO QAM insulin lispro [Humalog KwikPen Insulin] 100 unit/mL Insulin Pen 6 - 8 unit SUBCUT UD Rx Instructions: Pt says she normally only does this once daily in the evenings as your levels are ok during the day. metoprolol tartrate 25 mg Tablet 37.5 mg PO BID Caltrate 600 plus D 600 mg (1,500 mg)-800 unit Tablet,Chewable 1 tab PO BID insulin glargine U-300 conc [Toujeo SoloStar U-300 Insulin] 300 unit/mL (1.5 mL) Insulin Pen 56 unit SUBCUT HS aspirin 81 mg Tablet,Delayed Release (Dr/Ec) 81 mg PO BID 42 Days Qty: 0 0RF Mounjaro 7.5 mg/0.5 mL Pen Injector 7.5 mg SUBCUT WK Patient Comments: takes on saturdays > last dose 10/12/24 Rx Instructions: Monday cholecalciferol (vitamin D3) [Vitamin D3] 50 mcg (2,000 unit) Capsule 50 mcg PO BID magnesium oxide 400 mg magnesium Tablet 600 mg PO BID levothyroxine 200 mcg tablet 175 mcg PO QAM colestipol 1 gram tablet 1 g PO QID PRN (Reason: Other) psyllium husk [Metamucil] 0.52 gram Capsule 0.52 g PO BID Discharge Orders: Discharge Order (Routine); Ordered 10/22/24 Ordered By: Kana Lerma Admission Data Admit Date/Time: 10/21/24 15:17 Attending Provider: Kana Lerma Admit Provider: Kana Lerma Primary Care Provider: Usman Heredia
[2024-10-22 07:17] VITALS: BP 177/91; PULSE 68; RESP 16; O2SAT 96
[2024-10-22] MEDS: dexAMETHasone 4 MG TAB PO SCH (07:20)
[2024-10-22] MEDS: FUROSEMIDE 40 MG TAB PO SCH (07:21)
[2024-10-22] MEDS: lisinopril 40 MG TAB PO SCH (07:21)
[2024-10-22] MEDS: FERROUS SULFATE 325 MG TAB PO SCH (07:21)
[2024-10-22] MEDS: ATORVASTATIN 40 MG TAB PO SCH (07:21)
[2024-10-22] MEDS: MULTIVITAMIN TAB PO SCH (07:22)
[2024-10-22] MEDS: VIBEGRON 75 MG TAB PO SCH (07:22)
[2024-10-22] MEDS: PANTOprazole 40 MG TAB PO SCH (07:22)
[2024-10-22] MEDS ORDERED: LANTUS PER UNIT CHARGE SC SCH (21:00)
== END 2024-10-22 13:16 | disposition home health service (06) | DRG 465 ==
LOC: ASU 09:57 → 3E 15:17